=== PATIENT | female | born 1940 | race Caucasian/White ===

== ENCOUNTER 2018-08-14 14:29 | Emergency (ER) | payer MEDICARE, SELFPAY ==
[2018-08-14 14:30] VITALS: BP 183/79; PULSE 100; RESP 18; TEMP 36.3; O2SAT 98; BMI 24.4
--- NOTE | 2018-08-14 16:26 | RAD_ITS ---
STUDY: X-RAY - SACRUM/COCCYX REASON FOR EXAM: Female, 77 years old. Low back pain x1 month TECHNIQUE: 3 view(s) of the sacrum and coccyx were obtained. COMPARISON: None. FINDINGS: There is degenerative arthrosis of the bilateral sacroiliac joints. There is demineralization of the sacral ala. Normal sacrococcygeal junction with a normal angulation. Normal coccygeal segments. The presacral soft tissue structures are unremarkable. There is no demonstrated fracture. RAD/Sacrum-Coccyx min 2 Views IMPRESSION: No acute findings Electronically Signed: Jez Hernandez DO at 17:56 EDT Tel , Service support ,
--- NOTE | 2018-08-14 16:35 | ED.VIS.BACK ---
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 She states somewhere in between those 2 events she started having back discomfort, she does not know what exactly it started it, it was not sudden in onset, more gradual. It has been persistent. Worse with movement. She saw her chiropractor for separate times, he did some adjustments and thought that he fix the problem but she states it has not affected the pain which has been persistent. She denies any radiation into her lower extremities. No bowel or bladder dysfunction. No abdominal pain, no lightheadedness or syncope. The pain is mostly on the right, it is associated with movements, occasionally is on the left, or lumbar-sacral. No weakness or numbness anywhere including the groin. Also had urinary tract infection with urinary symptoms several weeks ago, she is finished antibiotics a couple days ago and still has some mild symptoms of urgency, but no dysuria or hematuria or fevers. - Past Medical History (1) DM type 2 (diabetes mellitus, type 2) Status: Chronic (2) HTN (hypertension) Status: Chronic Past Medical History - Allergies and Home Meds Allergies/Adverse Reactions: Allergies amoxicillin Adverse Reaction (Verified 08/14/18 14:32) YEAST INFECTION Primary Care Physician: Tahir Lau DO [Primary Care Provider] - Lives: Spouse/ Significant Other Smoking Status: Never smoker Review of Systems General: Denies: Chills, Fever, Sweats Eyes: Denies: Visual changes - bilaterally, Diplopia ENT: Denies: Rhinorrhea, Sore throat Cardiovascular: Denies: Chest pain, Palpitations Respiratory: Denies: Dyspnea, Cough, Dyspnea on exertion Gastrointestinal: Denies: Abdominal pain, Nausea, Vomiting, Diarrhea, Melena, Hematochezia Genitourinary: Reports: - - urgency. Denies: Dysuria, Hematuria, Frequency Musculoskeletal: Reports: Back pain. Denies: Extremity Pain Skin: Denies: Rash, Wounds Neurological: Denies: Headache, Weakness, Numbness Physical Exam Vital Signs/Narrative: Vital Signs Temp Pulse Resp BP Pulse Ox 08/14/18 14:30 97.4 F L 100 18 183/79 H 98 Inital Vital Signs reviewed: Yes General: Well nourished, Well developed Head: Normocephalic, Atraumatic Eyes: Perrl, EOMI ENT: Moist mucous membranes, No rhinorrhea Abdomen: Soft, Nontender, Nondistended, Normal bowel sounds Back: Normal Inspection, Paraspinal Tenderness - Right lumbosacral below pelvic brim, no tenderness left. Negative for: Spinal tenderness, CVA tenderness Extremeties: Nontender, No edema, - - Negative straight leg raises bilaterally while lying supine Skin: Normal color, No rash, No Trauma Neuro: Alert, Oriented, Normal Strength, Normal Sensation, Normal DTR, Normal Gait, Normal Reflexes Psychological: Normal affect, Normal Mood Diagnostic/Tx/Re-eval Impressions Sacrum and Coccyx X-Ray 08/14/18 16:26 IMPRESSION: No acute findings Electronically Signed: Jez Hernandez DO at 17:56 EDT Tel , Service support , Lumbar Spine X-Ray 08/14/18 16:55 IMPRESSION: Degenerative changes of the spine, as detailed above. Electronically Signed: Jez Hernandez DO at 17:56 EDT Tel , Service support , 08/14/18 16:26 Sacrum-Coccyx min 2 Views [RAD] Stat 08/14/18 16:55 Lumbar Spine 2 or 3 Views [RAD] Stat Laboratory Results 08/14/18 16:41 Urine Color Yellow Urine Clarity Sl. Cloudy Urine pH 6.0 Ur Specific [place] 1.015 Urine Protein 15 H Urine Glucose (UA) 1000 H Urine Ketones 5 H Urine Occult Blood 10 H Urine Nitrite Positive H Urine Bilirubin Negative Urine Urobilinogen Normal Ur Leukocyte Esterase 500 H Urine RBC 0-5 SEEN Urine WBC 25-50 SEEN Ur Squamous Epith Cells 0-5 SEEN Amorphous Sediment 1+ URATE Urine Bacteria 1+ Urine Mucus 0 SEEN - Medical Decision Making X-rays of the lumbar spine and sacrum are unremarkable except for some mild degenerative findings which is typical at this age. No acute abnormalities. Her urine shows significant signs of infection. She cannot remember which twice daily antibiotic she was recently on but knows it was not a sulfa medication and she is not allergic so I will prescribe that along with sending a culture for her to see her doctor for follow-up for. Offered prescription analgesics, she declines and states she is okay taking NSAIDs but really just wants a diagnosis. We discussed the possibility of muscle strain versus sacroiliitis. She is following up with orthopedics Dr. Romero and asked that I send a copy to his office, she is seeing him in about 2 weeks. ED Disposition - Plan for ED Patient: Disposition: Home or Assisted Living Diagnosis: Urinary tract infection, Acute lumbosacral myofascial strain Instructions: Back Sprain/Strain, Understanding Urinary Tract Infections (UTIs), Sacroiliitis Prescriptions: Smz/Tmp Ds [Bactrim Ds] 1 tab PO BID #14 tab Transmission Status: Pending to [id number] Referrals: Tahir Lau DO [Primary Care Provider] - 3-5 Days Maldonado Romero MD [STAFF PHYSICIAN] - Keep Emerita appointment
[2018-08-14 16:47] LABS: Mucous, Urine 0 SEEN /hpf (<or=2+)
[2018-08-14 16:49] LABS: Color, Urine Yellow (Yellow); Glucose, Dipstick 1000 mg/dl (Normal); Ketone-Dipstick 5 mg/dl (Negative); Leukocyte Esterase-Dipstick 500 /ul (Negative); Nitrite-Dipstick Positive (Negative); Occult Blood-Urine 10 /ul (Negative); Protein-Dipstick 15 mg/dl (Negative); Specific Gravity, Urine 1.015 (1.002-1.030); Urine Bilirubin Dipstick Negative (Negative); Urine Clarity Sl. Cloudy (Clear); Urine Urobilinogen Normal (Normal)
--- NOTE | 2018-08-14 16:55 | RAD_ITS ---
STUDY: X-RAY - LUMBAR SPINE REASON FOR EXAM: Female, 77 years old. Back pain TECHNIQUE: 3 view(s) of the lumbar spine were obtained. COMPARISON: None FINDINGS: Normal lumbar lordosis. There is no substantial scoliosis. Grade 1 anterolisthesis of L4 on L5 as well as L5 on S1. Chronic appearing pars defects. There is multilevel endplate spondylosis of the lumbar vertebrae. There is multi-level degenerative disc disease with multi-level disc space narrowing. There is no demonstrated fracture. There is atherosclerotic calcification of the abdominal aorta without a demonstrated aneurysm. RAD/Lumbar Spine 2 or 3 Views IMPRESSION: Degenerative changes of the spine, as detailed above. Electronically Signed: Jez Hernandez DO at 17:56 EDT Tel , Service support ,
[2018-08-14 16:56] LABS: Red Blood Cells-Urine 0-5 SEEN /hpf (0-5); Squamous Epithelial Cells - UA 0-5 SEEN /hpf (5-10); White Blood Cells 25-50 SEEN /hpf (0-5)
[2018-08-14 16:57] LABS: Amorphous Sediment 1+ URATE; Bacteria 1+ /hpf (None Seen)
[2018-08-14 18:29] VITALS: BP 167/71; PULSE 71; RESP 16; O2SAT 96
[2018-08-14 18:31] VITALS: BP 167/71; PULSE 71; RESP 18; O2SAT 96
== END 2018-08-14 18:31 | disposition home or self-care (01) ==
PROVIDERS: Emergency Provider Emergency Medicine; Family Provider Student in an Organized Health Care Education/Training Program; PCP Student in an Organized Health Care Education/Training Program
DX: N39.0 Urinary tract infection, site not specified (principal); S39.012A Strain of muscle, fascia and tendon of lower back, initial encounter; X58.XXXA Exposure to other specified factors, initial encounter; Y93.9 Activity, unspecified; Y92.9 Unspecified place or not applicable; E11.9 Type 2 diabetes mellitus without complications
CPT/HCPCS: 72100; 72220; 81001; 87077; 87086; 87088; 87186; 99282

== ENCOUNTER → 2022-10-08 | Outpatient (CLI) | payer MEDICARE, SELFPAY ==
--- NOTE | 2022-10-08 15:04 | US_ITS ---
INDICATION: UTI EXAMINATION: Ultrasound US Kidney(s) complete (eg, kidneys and bladder) TECHNIQUE: Little scale and color doppler images were obtained of the kidneys. COMPARISON: None. FINDINGS: RIGHT KIDNEY: 10.8 x 5.6 x 5.1 cm. [Mild increased cortical echogenicity. There is no hydronephrosis. Exophytic 2.1 cm anechoic simple cyst. No shadowing calculus, solid lesion or perinephric collection is demonstrated. LEFT KIDNEY: 10.3 x 4.7 x 5.7 cm. Lobulated renal cortex. Mild increased cortical echogenicity. There is no hydronephrosis. No shadowing calculus, focal lesion or perinephric collection is demonstrated. URINARY BLADDER: Anechoic bladder with prevoid volume 365 mL. No post void imaging obtained. Bilateral ureteral jets are demonstrated. No focal wall thickening is seen. . US/Kidney and Bladder IMPRESSION: Mildly increased bilateral renal cortical echogenicity and lobulated left renal cortex as can be seen with medical renal disease. No evidence of obstructive uropathy. Benign right renal cyst. Electronically Signed: Joaquin Ward MD at 9:43 EDT ,
== END | disposition home or self-care (01) ==
LOC: US 15:04
PROVIDERS: PCP Student in an Organized Health Care Education/Training Program; Referring Provider Urology; Visit Provider Urology
DX: N39.0 Urinary tract infection, site not specified (principal)
CPT/HCPCS: 76770

== ENCOUNTER 2023-02-27 08:42 | Emergency (ER) | payer MEDICARE, SELFPAY ==
[2023-02-27 08:44] VITALS: BP 164/109; PULSE 83; RESP 18; TEMP 36.1; O2SAT 95
[2023-02-27 09:00] VITALS: BP 180/81; PULSE 84; RESP 16; O2SAT 94
--- NOTE | 2023-02-27 09:10 | EDS_ITS ---
HPI History of Present Illness Chief Complaint: General Illness Detail of Chief Complaint: Sick x 1 week Informant: patient Narrative Narrative: Patient presents to the emergency department with complaint of illness that started 1 week ago. Patient states initially she started with a headache that lasted about 3 days and then resolved. She then developed a sore throat. She has had diarrhea for couple days. The diarrhea is improved and the headaches improved and the throat does not hurt any longer. She still has a mild cough. Her also has a sore throat. She denies any fevers or chills or sweats. PFSH PFSH Home Medications sulfamethoxazole 800 mg-trimethoprim 160 mg tablet 1 tab PO BID #14 tabs 08/14/18 [Rx Last Taken Unknown] Allergy/AdvReac Type Severity Reaction Status Date / Time amoxicillin AdvReac YEAST Verified 02/27/23 10:30 INFECTION Social History Smoking Status: Never smoker ROS ROS ED Review of Systems ROS Unobtainable: other Constitutional Constitutional ED: Reports lethargy; Denies chills, fever(s), sweats or weight loss Eyes Eyes: Denies blurry vision, change in vision or diplopia ENT ENT ED: Reports sore throat; Denies rhinorrhea Cardiovascular Cardiovascular: Denies chest pain, orthopnea or racing heartbeat Respiratory/Chest Respiratory/Chest: Reports cough; Denies dyspnea, dyspnea on exertion, orthopnea or sputum Gastrointestinal Gastrointestinal: Denies abdominal pain, diarrhea, nausea or vomiting Genitourinary Genitourinary ED: Denies dysuria, hematuria or urinary frequency Musculoskeletal Musculoskeletal: Denies arthralgias, back pain, myalgias or neck pain Integumentary Denies abscess, Abrasions or rash Neurologic Neurologic: Reports headache(s); Denies weakness Psychiatric Psychiatric: Denies anxiety, depression or suicidal thoughts Endocrine Endocrinology: Denies polydipsia, polyphagia or polyuria Hematologic/Lymphatic Hematologic/Lymphatic: Denies easy bleeding, easy bruising or lymphadenopathy Allergic/Immunologic Allergic/Immunologic ED: Denies mouth swelling, tongue swelling or urticaria EXAM Physical Exam Const Vital Signs: 02/27/23 08:44 02/27/23 09:00 02/27/23 10:31 Temperature 97 F L Temperature Source Temporal Pulse Rate 83 84 Respiratory Rate 18 16 Respiratory Effort Non-Labored Short of Breath Blood Pressure 164/109 H 180/81 H Blood Pressure Mean 127 114 Pulse Ox 95 94 Oxygen Delivery Method Room Air Positive well nourished and well developed General Appearance ED: well developed and NAD HEENT Reports TM's clear and moist mucous membranes normocephalic and atraumatic; Negative for trauma or tenderness Tympanic Membrane ED: Yes TM's clear Eyes PERRL and EOMs intact bilaterally General Eye ED: Negative for pale conjunctiva or scleral icterus Neck no lymphadenopathy, supple and no JVD General: Negative for tenderness Chest Wall inspection of chest normal and palpation of chest normal Chest: Negative for tenderness Resp normal respiratory effort and clear to auscultation bilaterally Effort and Inspection: Negative for respiratory distress or pain with movement Auscultation: Negative for rhonchi, wheezes or diminished lung sounds Cardio regular rate, regular rhythm, S1 normal heart sound, S2 normal heart sound and no murmurs Peripheral Pulses: pulses 2+ throughout GI normal to inspection, nondistended, normoactive bowel sounds, soft to palpation, non-tender, non-distended and no masses Back/Spine no CVA tenderness and no thoracic nor lumbar tenderness Extremity normal to inspection General Extremety ED: Negative for edema General Extremity: Negative for edema Neuro oriented x3, CN's II-XII intact bilaterally, no sensory deficits noted and gait normal Sensorium / Orientation: awake, alert, oriented to person, oriented to place and oriented to time Motor Exam: strength 5/5 throughout and strength abnormal Psych mental status grossly normal Skin no rashes or lesions noted and no wounds MDM MDM MDM Narrative Medical decision making narrative: Patient presents with URI symptoms for over a week. Clinically she looks well. No respiratory difficulty and O2 sats normal on room air. Lung exams unremarkable. Patient had testing for COVID and flu as well as RSV and did come back positive for COVID-19. Chest x-ray showed some increased markings in the bases which could be atelectasis versus pneumonia or scarring. Clinically she is not bringing up any phlegm and has had no fever and I do not feel she needs any antibiotics. She is to finish her nitrofurantoin that she takes for her urine. Her urinalysis was relatively unremarkable. I will send off a culture. Patient advised to return if increasing shortness of breath or condition should worsen anyway. Patient advised to follow-up with her primary care physician within next 3 to 5 days. Lab Data Attestation: I reviewed the patient's lab results. Labs: Laboratory Results - last 24 hr 02/27/23 09:49 Urine Color Yellow Urine Clarity Sl. Cloudy Urine pH 6.0 Ur Specific [place] 1.010 Urine Protein 30 H Urine Glucose (UA) 250 H Urine Ketones 15 H Urine Occult Blood 10 H Urine Nitrite Negative Urine Bilirubin Negative Urine Urobilinogen Normal Ur Leukocyte Esterase 100 H Urine RBC 0-5 SEEN Urine WBC 5-10 SEEN Ur Squamous Epith Cells 0-5 SEEN Urine Bacteria 1+ Urine Mucus 0 SEEN Radiography Diagnostic Testing: Clinical Impression(s) from Imaging Studies Chest X-Ray 02/27/23 09:20 IMPRESSION: Bibasilar pulmonary densities which may represent pneumonia, atelectasis and/or scarring. Electronically Signed: Edy Pickering MD at 9:58 EST , 1 view chest x-ray obtained interpreted by myself as mild increased markings both lower lobes which may be atelectasis versus infiltrate. Radiology was in agreement. Discharge Plan Triage Chief Complaint: General Illness ED Provider: Selene Cates Dx/Rx/DC Orders Clinical Impression: COVID-19 Instructions: Caring for Someone Who Has COVID-19 Prescriptions: No Action sulfamethoxazole-trimethoprim 1 TABLET tablet 1 tab PO BID Qty: 14 0RF Primary Care Provider: Tahir Lau Referrals: Tahir Lau DO [Primary Care Provider] - 3-5 Days Disposition Disposition: Home, Self Care Discharge Date/Time: 02/27/23 10:57
--- NOTE | 2023-02-27 09:20 | RAD_ITS ---
EXAM: XR CHEST, 1 VIEW CLINICAL INDICATION: cough TECHNIQUE: Frontal view of the chest. COMPARISON: No relevant prior studies available. FINDINGS: LUNGS AND PLEURAL SPACES: Bibasilar infiltrates/atelectasis or scarring noted. HEART: Normal heart size. MEDIASTINUM: No mediastinal or hilar mass. BONES/JOINTS: No acute abnormality. RAD/Chest 1 View (Portable) IMPRESSION: Bibasilar pulmonary densities which may represent pneumonia, atelectasis and/or scarring. Electronically Signed: Edy Pickering MD at 9:58 EST ,
[2023-02-27 09:53] LABS: Mucous, Urine 0 SEEN /hpf (<or=2+)
[2023-02-27 10:04] LABS: Color, Urine Yellow (Yellow); Glucose, Dipstick 250 mg/dl (Normal); Ketone-Dipstick 15 mg/dl (Negative); Leukocyte Esterase-Dipstick 100 /ul (Negative); Nitrite-Dipstick Negative (Negative); Occult Blood-Urine 10 /ul (Negative); Protein-Dipstick 30 mg/dl (Negative); Urine Bilirubin Dipstick Negative (Negative); Urine Clarity Sl. Cloudy (Clear); Urine Urobilinogen Normal (Normal)
[2023-02-27 10:11] LABS: Bacteria 1+ /hpf (None Seen); Squamous Epithelial Cells - UA 0-5 SEEN /hpf (5-10); White Blood Cells 5-10 SEEN /hpf (0-5)
[2023-02-27 10:12] LABS: Red Blood Cells-Urine 0-5 SEEN /hpf (0-5)
--- OUTSIDE RECORDS SUMMARY | 2023-02-27 10:23 | XMS RPT_ITS | CCD ---
Author Name Unknown Address [address] [place] [address] Organization [facility] Care Team Providers Care Substation Design Draftsperson Name Role Phone Tahir Vega Unavailable PHYSICIAN, NOT RECORDED Unavailable Unavaila FAWN Sanchez Unavailable Unavailable FAWN LEVINE Unavailable Unavailable FAWN LEVINE Unavailable Unavailable Reggie Son Unavailable Unavailable Reggie Son Unavailable Unavailable Elliot Morrison Primary Care Provider Tahir Vega Primary Care Provider Tahir Vega Primary Care Provider Tahir Vega DO Primary Care Provider Tahir Vega DO Primary Care Provider TAHIR VEGA Primary Care Unavailable FAWN GARZA Attending Unava ilable SLICK, ELICEO PAC Attending Unavailable SLICK, ELICEO PAC Primary Care Unavailable SLICK, ELICEO PAC Admitting Unavailable Tahir Vega DO Primary Care Provider TAHIR VEGA Primary Care Unavailable LUIS E MALLORY.GASTON Attending Unavailable LUIS E MALLORY., GASTON Referring Unavailable TAHIR VEGA Primary Care Unavailable LUIS E ., GASTON Attending Unavailable LUIS E JR., GASTON Referring Unavailable Tahir Vega DO Primary Care Provider Tahir Vega DO Primary Care Provider Tahir Vega DO Primary Care Provider Tahir Vega DO Primary Care Provider VEGATAHIR L Admitting Unavailable VEGA, TAHIR L Primary Care Unavailable VEGA, TAHIR L Primary Care Unavailable REGGIE SON Admitting Unavailab madeline WEINSTEINN JR., GASTON Attending Unavailable VEGA, TAHIR L Primary Care Unavailable LUIS E MALLORY., GASTON Attending Unavailable VEGA, TAHIR L Primary Care Unavailable VEGA, TAHIR L Primary Care Unavailable REGGIE SON Attending Unavailab le VEGA, TAHIR Heather Primary Care Unavailable KAELA HENNESSY Attending Unavailable VEGA, TAHIR Heather Primary Care Unavailable KAELA HENNESSY Attending Unavailable MALISSA GRAVES Attending Unavaila ble VEGA, TAHIR L Primary Care Unavailable VEGA, TAHIR L Primary Care Unavailable LUIS E JR., GASTON Attending Unavailable LUIS E JR., GASTON Attending Unavailable VEGA, TAHIR L Primary Care Unavailable REGGIE SON Attending Unavailab le VEGA, TAHIR L Primary Care Unavailable VEGA, TAHIR L Primary Care Unavailable DONNA MAX Attending Unavailable VEGA, TAHIR Heather Attending Unavailable VEGA, TAHIR L Primary Care Unavailable VEGA, TAHIR L Primary Care Unavailable KAUSHIK CORTEZ Attending Unavailable VEGA, TAHIR Heather Referring Unavailable VEGA, TAHIR L Primary Care Unavailable VEGA, TAHIR L Primary Care Unavailable DILCIA SALDAÑA Attending Unavailable VEGA, TAHIR L Primary Care Unavailable DONNA MAX Attending Unavailable VEGA, TAHIR L Primary Care Unavailable VEGA, TAHIR Heather Attending Unavailable DERECK BARNETT Attending Unavailable VEGA, TAHIR L Primary Care Unavailable DERECK BARNETT Attending Unavailable VEGA, TAHIR L Primary Care Unavailable Allergies Allergy Classification Reported Allergen(s) Allergy Type Date of Onset Reaction(s) Facility Penicillins (antibiotic) (2 sources) Penicillin G Drug Allergy 7 [facility] (20 sources) penicillin g; Translations: [PENICILLIN G] Propensity to adverse reactions to drug 7 [facility] Work Phone: (3 sources) NO KNOWN DRUG ALLERGIES Propensity to adverse reactions to drug 6 [facility] (20 sources) Amoxicillin; Translations: [AMOXICILLIN] Drug Allergy 1 [facility] Repository Medications Current Medications Medication Drug Class(es) Dates Sig (Normalized) Sig (Original) blood-glucose meter (True Metrix Air Glucose Meter) kit (2 sources) Start: 10-09-2022 blood-glucose meter (True Metrix Air Glucose Meter) kit USE DIRECTED 1 kit 0 10/09/2022 Active Blood-Glucose Meter Kit (3 sources) Start: 06-29-2014 blood-glucose meter kit use as directed. 06/29/2014 Active calcium citrate 1500 mg / cholecalciferol 200 unt oral tablet (19 sources) Vitamin D Start: 05-30-2010 take 2 tablets by mouth once daily calcium citrate-vitamin D (CITRACAL+D) 315-200 mg-unit per tablet take 2 Tablet by Oral route every day. 0 05/30/2010 Active Calcium Citrate-Vitamin D3 315 Mg-200 Unit Tablet (3 sources) Start: 05-30-2010 take 2 tablets by mouth once daily calcium citrate-vitamin D (CITRACAL+D) 315-200 mg-unit per tablet take 2 Tablet by Oral route every day. 05/30/2010 Active cefdinir 300 mg oral capsule (4 sources) Cephalosporin Antibacterial Start: 07-23-2022 End: 08-02-2022 take 1 capsule by mouth twice daily cefdinir (OMNICEF) 300 MG capsule take 1 capsule by mouth twice daily for 10 days 0 07/23/2022 Active Completed/Discontinued Medications Medication Drug Class(es) Dates Sig (Normalized) Sig (Original) alendronic acid 70 mg oral tablet (20 sources) Bisphosphonate Start: 11-15-2020 take 1 tablet by mouth every week alendronate (FOSAMAX) 70 mg tablet Indications: Age-related osteoporosis without current pathological fracture Take 1 tablet by mouth one time a week. Take with a full glass of water, on an empty stomach; do NOT lie down for 30minutes. 12 tablet 3 05/28/2022 Active Problems Active Problems Problem Classification Problem Date Documented Da te Episodic/Chronic Abdominal pain (1 source) Flank pain; Translations: [Unspecified abdominal pain] Episodic Diabetes mellitus with complications (20 sources) Neurological disorder with diabetes type 2; Translations: [Type 2 diabetes mellitus with other diabetic neurological complication] Onset: 06-18-2010 05-05-2015 Chronic Diabetes mellitus without complication (20 sources) Type 2 diabetes mellitus; Translations: [Type 2 diabetes mellitus without complication] Onset: 06-18-2010 05-05-2015 Chronic Diseases of mouth; excluding dental (1 source) Angular cheilitis; Translations: [Diseases of lips] 01-28-2023 Episodic Disorders of lipid metabolism (20 sources) Dyslipidemia; Translations: [Hyperlipidemia, unspecified] Onset: 04-24-2017 04-24-2017 Chronic Essential hypertension (20 sources) Essential hypertension; Translations: [Essential (primary) hypertension] Onset: 06-18-2010 05-05-2015 Chronic Genitourinary symptoms and ill-defined conditions (1 source) Urge incontinence of urine; Translations: [Urge incontinence] Chronic Heart valve disorders (20 sources) Non-rheumatic mitral regurgitation ; Translations: [Nonrheumatic mitral (valve) insufficiency] 07-25-2020 Chronic Nutritional deficiencies (20 sources) Vitamin D deficiency; Translations: [Vitamin D deficiency, unspecified] Onset: 12-06-2021 Chronic Nutritional deficiencies (1 source) Cobalamin deficiency; Translations: [Deficiency of other specified B group vitamins] 12-11-2022 Episodic Osteoarthritis (20 sources) Osteoarthritis of right foot; Translations: [Primary osteoarthritis, right ankle and foot] Onset: 04-28-2021 04-28-2021 Chronic Osteoporosis (20 sources) Senile osteoporosis; Translations: [Age-related osteoporosis without current pathological fracture] Onset: 06-07-2020 06-07-2020 Chronic Other and ill-defined heart disease (20 sources) Left ventricular hypertrophy; Translations: [Cardiomegaly] Onset: 06-07-2020 06-07-2020 Chronic Other non-traumatic joint disorders (20 sources) Arthropathy of multiple joints; Translations: [Arthropathy, unspecified] Onset: 12-06-2021 Chronic Peripheral and visceral atherosclerosis (8 sources) Peripheral vascular disease; Translations: [Peripheral vascular disease, unspecified] Onset: 08-29-2022 Chronic Prolapse of female genital organs (1 source) Cystocele; Translations: [Cystocele, unspecified] 08-28-2022 Chronic Sprains and strains (2 sources) Rupture of posterior tibial tendon; Translations: [Strain of other muscle(s) and tendon(s) of posterior muscle group at lower leg level, right leg, initial encounter] Episodic Past or Other Problems Problem Classification Problem Date Documented Da te Episodic/Chronic Genitourinary symptoms and ill-defined conditions (13 sources) Urgent desire to urinate; Translations: [Urgency of urination] Onset: 04-27-2022 Episodic Mycoses (8 sources) Onychomycosis; Translations: [Tinea unguium] Onset: 08-29-2022 Episodic Other bone disease and musculoskeletal deformities (1 source) Osteopenia Episodic Other connective tissue disease (20 sources) Pain in right foot; Translations: [Pain in right foot] Onset: 10-29-2017 10-29-2017 Episodic Other connective tissue disease (20 sources) Pain in right hand; Translations: [Pain in right hand] Onset: 04-28-2018 04-28-2018 Episodic Other screening for suspected conditions (not mental disorders or infectious disease) (4 sources) Patient encounter status; Translations: [Encounter for screening for nutritional disorder] Onset: 05-14-2022 Episodic Urinary tract infections (20 sources) Recurrent urinary tract infection; Translations: [Urinary tract infection, site not specified] Onset: 04-28-2018 04-28-2018 Episodic Results Test Name Value Interpretation Reference Range Facil it Vital Signs Date Time Vital Sign Value Performing Clinician Facility 01-28-2023 11:10-0500 Diastolic blood pressure 80 mm[Hg] Donna Max APRN.CNP Work Phone: [facility] 01-28-2023 11:10-0500 Heart rate 71 /min Donna Max APRN.CNP Work Phone: [facility] 01-28-2023 11:10-0500 Respiratory rate 16 /min Donna Max APRN.CNP Work Phone: [facility] 01-28-2023 11:10-0500 SaO2% (BldA) [Mass fraction] 98 % Donna Max APRN.CNP Work Phone: [facility] 01-28-2023 11:10-0500 Systolic blood pressure 170 mm[Hg] Donna Max APRN.CNP Work Phone: [facility] 12-11-2022 08:11-0400 Body temperature 98.49 [degF] Tahir Vega DO Work Phone: [facility] 12-11-2022 08:11-0400 Body weight 64.41 kg Tahir Vega DO Work Phone: [facility] 12-11-2022 08:11-0400 Diastolic blood pressure 80 mm[Hg] Tahir Vega DO Work Phone: [facility] 12-11-2022 08:11-0400 Heart rate 76 /min Tahir Vega DO Work Phone: [facility] 12-11-2022 08:11-0400 Respiratory rate 16 /min Tahir Vega DO Work Phone: [facility] 12-11-2022 08:11-0400 Systolic blood pressure 146 mm[Hg] Tahir Vega DO Work Phone: [facility] 11-23-2022 08:21-0400 Diastolic blood pressure 57 mm[Hg] Gaston Cantu Jr., DPM Work Phone: [facility] 11-23-2022 08:21-0400 Systolic blood pressure 155 mm[Hg] Gaston Cantu Jr., DPM Work Phone: [facility] 11-23-2022 08:16-0400 Body temperature 98.29 [degF] Gaston Cantu Jr., DPM Work Phone: [facility] 11-23-2022 08:16-0400 Heart rate 77 /min Gaston Cantu Jr., DPM Work Phone: [facility] 08-29-2022 08:04-0400 Body temperature 98.01 [degF] Gaston Cantu Jr., DPM Work Phone: [facility] 08-29-2022 08:04-0400 Diastolic blood pressure 69 mm[Hg] Gaston Cantu Jr., DPM Work Phone: [facility] 08-29-2022 08:04-0400 Heart rate 66 /min Gaston Cantu Jr., DPM Work Phone: [facility] 08-29-2022 08:04-0400 Systolic blood pressure 173 mm[Hg] Gaston Cantu Jr. DPDaxa Work Phone: [facility] 08-28-2022 11:03-0400 Body weight 63.96 kg Dereck Knoble SIGNAL MAINTAINER HELPER.CUSTOMER SOLUTIONS SUPERVISOR Work Phone: [facility] 08-28-2022 11:03-0400 Diastolic blood pressure 80 mm[Hg] Dereck Knoble SIGNAL MAINTAINER HELPER.CUSTOMER SOLUTIONS SUPERVISOR Work Phone: [facility] 08-28-2022 11:03-0400 Heart rate 76 /min Dereck Knoble SIGNAL MAINTAINER HELPER.CUSTOMER SOLUTIONS SUPERVISOR Work Phone: [facility] 08-28-2022 11:03-0400 Respiratory rate 16 /min Dereck Knoble SIGNAL MAINTAINER HELPER.CUSTOMER SOLUTIONS SUPERVISOR Work Phone: [facility] 08-28-2022 11:03-0400 Systolic blood pressure 122 mm[Hg] Dereck Knoble SIGNAL MAINTAINER HELPER.CUSTOMER SOLUTIONS SUPERVISOR Work Phone: [facility] 07-19-2022 09:45-0400 Body weight 65.32 kg Dereck Knoble SIGNAL MAINTAINER HELPER.CUSTOMER SOLUTIONS SUPERVISOR Work Phone: [facility] 07-19-2022 09:45-0400 Diastolic blood pressure 80 mm[Hg] Dereck Knoble SIGNAL MAINTAINER HELPER.CUSTOMER SOLUTIONS SUPERVISOR Work Phone: [facility] 07-19-2022 09:45-0400 Heart rate 84 /min Dereck Knoble SIGNAL MAINTAINER HELPER.CUSTOMER SOLUTIONS SUPERVISOR Work Phone: [facility] 07-19-2022 09:45-0400 Respiratory rate 16 /min Dereck Knoble SIGNAL MAINTAINER HELPER.CUSTOMER SOLUTIONS SUPERVISOR Work Phone: [facility] 07-19-2022 09:45-0400 Systolic blood pressure 150 mm[Hg] Dereck Knoble SIGNAL MAINTAINER HELPER.CUSTOMER SOLUTIONS SUPERVISOR Work Phone: [facility] 06-08-2022 08:09-0400 Diastolic blood pressure 63 mm[Hg] Reggie Son CUSTOMER SOLUTIONS SUPERVISOR Work Phone: [facility] 06-08-2022 08:09-0400 Heart rate 68 /min Reggie Son CUSTOMER SOLUTIONS SUPERVISOR Work Phone: [facility] 06-08-2022 08:09-0400 Systolic blood pressure 151 mm[Hg] Reggie Son CUSTOMER SOLUTIONS SUPERVISOR Work Phone: [facility] 06-08-2022 08:00-0400 Body mass index (BMI) [Ratio] 24.72 kg/m2 Reggie Son CUSTOMER SOLUTIONS SUPERVISOR Work Phone: [facility] 06-08-2022 08:00-0400 Body weight 65.32 kg Reggie Son CUSTOMER SOLUTIONS SUPERVISOR Work Phone: [facility] 06-06-2022 08:35-0400 Body temperature 97 [degF] Tahir Vega DO Work Phone: [facility] 06-06-2022 08:35-0400 Body weight 65.77 kg Tahir Vega DO Work Phone: [facility] 06-06-2022 08:35-0400 Diastolic blood pressure 80 mm[Hg] Tahir Vega DO Work Phone: [facility] 06-06-2022 08:35-0400 Heart rate 64 /min Tahir Vega DO Work Phone: [facility] 06-06-2022 08:35-0400 Respiratory rate 16 /min Tahir Vega DO Work Phone: [facility] 06-06-2022 08:35-0400 Systolic blood pressure 134 mm[Hg] Tahir Vega DO Work Phone: [facility] 05-30-2022 07:54-0400 Body temperature 99.9 [degF] Gaston Cantu Jr., DPM Work Phone: [facility] 05-30-2022 07:54-0400 Diastolic blood pressure 63 mm[Hg] Gaston Cantu Jr., DPM Work Phone: [facility] 05-30-2022 07:54-0400 Heart rate 69 /min Gaston Cantu Jr., DPM Work Phone: [facility] 05-30-2022 07:54-0400 Systolic blood pressure 181 mm[Hg] Gaston Cantu Jr., DPM Work Phone: [facility] 05-14-2022 10:42-0400 Body weight 65.68 kg Kaushik Dana SIGNAL MAINTAINER HELPER.CUSTOMER SOLUTIONS SUPERVISOR Work Phone: [facility] 05-14-2022 10:42-0400 Diastolic blood pressure 74 mm[Hg] Kaushik Dana SIGNAL MAINTAINER HELPER.CUSTOMER SOLUTIONS SUPERVISOR Work Phone: [facility] 05-14-2022 10:42-0400 Heart rate 77 /min Kaushik Dana SIGNAL MAINTAINER HELPER.CUSTOMER SOLUTIONS SUPERVISOR Work Phone: [facility] 05-14-2022 10:42-0400 Respiratory rate 16 /min Kaushik Dana SIGNAL MAINTAINER HELPER.CUSTOMER SOLUTIONS SUPERVISOR Work Phone: [facility] 05-14-2022 10:42-0400 SaO2% (BldA) [Mass fraction] 96 % Kaushik Dana SIGNAL MAINTAINER HELPER.CUSTOMER SOLUTIONS SUPERVISOR Work Phone: [facility] 05-14-2022 10:42-0400 Systolic blood pressure 156 mm[Hg] Kaushik Dana SIGNAL MAINTAINER HELPER.CUSTOMER SOLUTIONS SUPERVISOR Work Phone: [facility] 03-02-2022 08:36-0500 Diastolic blood pressure 81 mm[Hg] Gaston Cantu Jr., DPM Work Phone: [facility] 03-02-2022 08:36-0500 Heart rate 78 /min Gaston Cantu Jr., DPM Work Phone: [facility] 03-02-2022 08:36-0500 Systolic blood pressure 151 mm[Hg] Gaston Cantu Jr., DPM Work Phone: [facility] 03-02-2022 08:31-0500 Body temperature 99 [degF] Gaston Cantu Jr., DPM Work Phone: [facility] 12-06-2021 09:04-0400 Body temperature 98.01 [degF] Tahir Vega DO Work Phone: [facility] 12-06-2021 09:04-0400 Body weight 64.86 kg Tahir Vega DO Work Phone: [facility] 12-06-2021 09:04-0400 Diastolic blood pressure 72 mm[Hg] Tahir Vega DO Work Phone: [facility] 12-06-2021 09:04-0400 Heart rate 68 /min Tahir Vega DO Work Phone: [facility] 12-06-2021 09:04-0400 Respiratory rate 16 /min Tahir Vega DO Work Phone: [facility] 12-06-2021 09:04-0400 Systolic blood pressure 138 mm[Hg] Tahir Vega DO Work Phone: [facility] 09-08-2021 09:01-0400 Diastolic blood pressure 69 mm[Hg] Gaston Cantu Jr., DPM Work Phone: [facility] 09-08-2021 09:01-0400 Heart rate 69 /min Gaston Cantu Jr., DPM Work Phone: [facility] 09-08-2021 09:01-0400 Systolic blood pressure 152 mm[Hg] Gaston Cantu Jr., DPM Work Phone: [facility] 09-08-2021 08:54-0400 Body temperature 98.8 [degF] Gaston Cantu Jr., DPM Work Phone: [facility] 07-18-2021 09:46-0400 Body temperature 98.6 [degF] Caroline Preston SIGNAL MAINTAINER HELPER.CUSTOMER SOLUTIONS SUPERVISOR Work Phone: [facility] 07-18-2021 09:46-0400 Body weight 66.59 kg Caroline Preston SIGNAL MAINTAINER HELPER.CUSTOMER SOLUTIONS SUPERVISOR Work Phone: [facility] 07-18-2021 09:46-0400 Diastolic blood pressure 70 mm[Hg] Caroline Preston SIGNAL MAINTAINER HELPER.CUSTOMER SOLUTIONS SUPERVISOR Work Phone: [facility] 07-18-2021 09:46-0400 Heart rate 89 /min Caroline Preston SIGNAL MAINTAINER HELPER.CUSTOMER SOLUTIONS SUPERVISOR Work Phone: [facility] 07-18-2021 09:46-0400 Respiratory rate 18 /min Caroline Preston SIGNAL MAINTAINER HELPER.CUSTOMER SOLUTIONS SUPERVISOR Work Phone: [facility] 07-18-2021 09:46-0400 SaO2% (BldA) [Mass fraction] 98 % Caroline Preston SIGNAL MAINTAINER HELPER.CUSTOMER SOLUTIONS SUPERVISOR Work Phone: [facility] 07-18-2021 09:46-0400 Systolic blood pressure 146 mm[Hg] Caroline Preston SIGNAL MAINTAINER HELPER.CUSTOMER SOLUTIONS SUPERVISOR Work Phone: [facility] 06-09-2021 09:44-0400 Diastolic blood pressure 69 mm[Hg] Gaston Cantu Jr., DPM Work Phone: [facility] 06-09-2021 09:44-0400 Heart rate 78 /min Gaston Cantu Jr., DPM Work Phone: [facility] 06-09-2021 09:44-0400 Systolic blood pressure 156 mm[Hg] Gaston Cantu Jr., DPM Work Phone: [facility] 06-09-2021 09:33-0400 Body temperature 98.1 [degF] Gaston Cantu Jr., DPM Work Phone: [facility] 06-09-2021 08:22-0400 Diastolic blood pressure 75 mm[Hg] Reggie Son CUSTOMER SOLUTIONS SUPERVISOR Work Phone: [facility] 06-09-2021 08:22-0400 Heart rate 75 /min Reggie Son CUSTOMER SOLUTIONS SUPERVISOR Work Phone: [facility] 06-09-2021 08:22-0400 Systolic blood pressure 165 mm[Hg] Reggie Son CUSTOMER SOLUTIONS SUPERVISOR Work Phone: [facility] 06-09-2021 08:19-0400 Body mass index (BMI) [Ratio] 25.04 kg/m2 Reggie Son CUSTOMER SOLUTIONS SUPERVISOR Work Phone: [facility] 06-09-2021 08:19-0400 Body weight 66.18 kg Reggie Son CUSTOMER SOLUTIONS SUPERVISOR Work Phone: [facility] 01-31-2021 08:36-0500 Body temperature 97.81 [degF] [facility] 08:36-[facility]00 Diastolic blood pressure 68 mm[Hg[facility]-31-[facility]21 08:36-0500 Heart rate 87 /[facility] 01-31-2021 08:36-0500 Systolic blood pressure 143 mm[Hg] [facility] 06-06-2020 07:49-0400 Body height 162.5 cm Reggie Son CUSTOMER SOLUTIONS SUPERVISOR Work Phone: [facility] 06-06-2020 07:49-0400 Body mass index (BMI) [Ratio] 25.57 kg/m2 Reggie Son CUSTOMER SOLUTIONS SUPERVISOR Work Phone: [facility] 06-06-2020 07:49-0400 Body weight 67.5 kg Reggie Son CUSTOMER SOLUTIONS SUPERVISOR Work Phone: [facility] 06-06-2020 07:49-0400 Diastolic blood pressure 71 mm[Hg] Reggie Son CUSTOMER SOLUTIONS SUPERVISOR Work Phone: [facility] 06-06-2020 07:49-0400 Heart rate 71 /min Reggie Son CUSTOMER SOLUTIONS SUPERVISOR Work Phone: [facility] 06-06-2020 07:49-0400 Systolic blood pressure 189 mm[Hg] Reggie Son CUSTOMER SOLUTIONS SUPERVISOR Work Phone: [facility] 12-02-2018 08:50-0400 BMI (Body Mass Index) 24.89 kg/m2 Reggie Son [facility] 12-02-2018 08:50-0400 Body weight 65.69 kg Reggie Son [facility] 12-02-2018 08:50-0400 BP Diastolic 79 mm[Hg] Reggie Son [facility] 12-02-2018 08:50-0400 BP Systolic 168 mm[Hg] Reggiemateusz Son [facility] 12-02-2018 08:50-0400 Height 162.5 cm Reggie [facility] 12-02-2018 08:50-0400 Pulse (Heart Rate) 70 /min Reggiemateusz Son [facility] 05-29-2018 08:09-0400 BMI (Body Mass Index) 25.23 kg/m2 Reggie [facility] 05-29-2018 08:09-0400 Body weight 66.68 kg Reggie [facility] 05-29-2018 08:09-0400 Height 162.6 cm Reggie [facility] 11-22-2017 08:59-0400 BMI (Body Mass Index) 24.68 kg/m2 Kaela Hennessy [facility] 11-22-2017 08:59-0400 BP Diastolic 79 mm[Hg] Kaela Hennessy [facility] 11-22-2017 08:59-0400 BP Systolic 188 mm[Hg] Kaela Hennessy [facility] 11-22-2017 08:59-0400 Height 162.6 cm Kaela Hennessy [facility] 11-22-2017 08:59-0400 Pulse (Heart Rate) 69 /min Kaela Hennessy [facility] 11-22-2017 08:59-0400 Weight 65.23 kg Kaela Hennessy [facility] 05-14-2017 07:44-0400 BMI (Body Mass Index) 24.03 kg/m2 [facility] 05-14-2017 07:44-0400 BP Diastolic 94 mm[Hg] [facility] 05-14-2017 07:44-0400 BP Systolic 170 mm[Hg] [facility] 05-14-2017 07:44-0400 Height 162.6 cm [facility] 05-14-2017 07:44-0400 Pulse (Heart Rate) 96 /min [facility] 05-14-2017 07:44-0400 Weight 63.5 kg [facility] 11-13-2016 07:59-0400 BMI (Body Mass Index) 23.17 kg/m2 [facility] Work Phone: 11-13-2016 07:59-0400 Height 162.6 cm [facility] Work Phone: 11-13-2016 07:59-0400 [address] 61[address] [facility] Work Phone: Encounters Encounter Date Encounter Type Care Provider Facility Start: 02-13-2023 End: 02-13-2023 ambulatory TAHIR VEGA Facility:[facility] Start: 01-28-2023 End: 01-28-2023 ambulatory TAHIR VEGA Facility:[facility] Start: 01-28-2023 End: 01-28-2023 Office outpatient visit 25 minutes Donna Max SIGNAL MAINTAINER HELPER.CUSTOMER SOLUTIONS SUPERVISOR Work Phone: [facility] Procedures Date Procedure Procedure Detail Performing Clinician Start: 08-28-2022 Urnls dip stick/tabl et rgnt auto w/o microscopy Dereck Barnett SIGNAL MAINTAINER HELPER.CUSTOMER SOLUTIONS SUPERVISOR Work Phone: Start: 07-19-2022 Urnls dip stick/tabl et rgnt auto w/o microscopy Dereck Barnett SIGNAL MAINTAINER HELPER.CUSTOMER SOLUTIONS SUPERVISOR Work Phone: Start: 06-08-2022 3 comp foot exam completed Reggie Son CUSTOMER SOLUTIONS SUPERVISOR Work Phone: Start: 06-01-2022 Microalbumin [Mass/v olume] in Urine by Test strip Reggie Son CUSTOMER SOLUTIONS SUPERVISOR Work Phone: Start: 05-14-2022 Urnls dip stick/tabl et rgnt auto w/o microscopy Kaushik Cortez SIGNAL MAINTAINER HELPER.CUSTOMER SOLUTIONS SUPERVISOR Work Phone: Start: 12-08-2021 3 comp foot exam completed Gaston Cantu Jr., DPM Work Phone: Start: 11-30-2021 Microalbumin [Mass/v olume] in Urine by Test strip Gaston Cantu Jr., DPM Work Phone: Start: 07-18-2021 Urnls dip stick/tabl et rgnt auto w/o microscopy [facility] Start: 06-09-2021 3 comp foot exam completed Reggie Son CNP Work Phone: Start: 12-09-2020 3 comp foot exam completed Leona Silverio MA Start: 06-06-2020 3 comp foot exam completed Reggie Son CUSTOMER SOLUTIONS SUPERVISOR Work Phone: Start: 06-02-2020 Microalbumin [Mass/v olume] in Urine by Test strip Reggie Son CUSTOMER SOLUTIONS SUPERVISOR Work Phone: Start: 12-02-2018 3 comp foot exam completed Reggie Son Start: 11-25-2018 Microalbumin [Mass/v olume] in Urine by Test strip Reggiemateusz Son Start: 05-29-2018 3 comp foot exam completed Reggie Son Start: 11-06-2017 End: 11-06-2017 Assay of thyroid stimulating hormone tsh Reggie Son Work Phone: Start: 11-06-2017 End: 11-06-2017 Comprehensive metabolic 2000 panel - Serum or Plasma Reggie Son Work Phone: Start: 11-06-2017 End: 11-06-2017 Hemoglobin A1c/Hemoglobin.total in Blood Reggie Son Work Phone: Start: 11-06-2017 End: 11-06-2017 Thyroxine (T4) free [Mass/volume] in Serum or Plasma Reggie Son Work Phone: Start: 11-13-2016 3 comp foot exam completed [facility] Start: 11-07-2016 Microalbumin [Mass/v olume] in Urine by Test strip [facility] Plan of Treatment Date Care Activity Detail Author Start: 08-18-2023 Influenza vaccination Influenza Vacc ine (#1) [facility] Immunizations Immunization Date Immunization Notes Care Provider Blanca bonilla 04-28-2018 influenza virus vaccine, unspecified formulation Tahir Vega DO Work Phone: [facility] 11-07-2016 [facility] Work Phone: Payers Date Payer Category Payer Medicare xxxxxxxxx [id number] 2015 Medicare [id number] 2015 Medicare [id number] [id number] 2015 Medicare [id number] 1939 Unknown [id number] 2.16. [id number] 1939 Unknown [id number] 2.16.84 [id number] 1939 Unknown [id number] 2.16. [id number] 1939 Unknown [id number] 2.16. [id number] 1939 Unknown [id number] 2.16. [id number] 1939 Unknown [id number] 2.16. [id number] 1939 Unknown [id number] 2.16. [id number] 1939 Unknown [id number] 2.16. [id number] 1939 Unknown [id number] 2.16. [id number] 1939 Unknown [id number] 2.16. [id number] 1939 Unknown [id number] 2.16. [id number] 1939 Unknown [id number] 2.16. [id number] 1939 Unknown [id number] 2.16. [id number] 1939 Unknown [id number] 2.16. [id number] 1939 Unknown [id number] 2.16. [id number] Social History Date Type Detail Facility Start: 05-14-2017 End: 12-06-2021 Tobacco smoking status NHIS Never smoker [facility] Work Phone: Start: 1940 Sex Assigned At Not on file O [facility] Work Phone: Exposure to SARS-CoV -2 (event) Unable to assess [facility] Start: 06-06-2020 End: 12-06-2021 Tobacco use and exposure Never used [facility] Start: 05-30-2021 End: 06-08-2022 Exposure to SARS-CoV-2 (event) Not sure [facility] Start: 01-31-2021 End: 11-23-2022 Alcohol intake Lifetime non-drinker (finding) [facility] Start: 04-28-2021 End: 01-28-2023 Alcohol intake Current non-drinker of alcohol (finding) [facility] Start: 03-02-2022 End: 07-19-2022 History of Social function [facility] Work Phone: Start: 03-02-2022 End: 07-19-2022 Tobacco use panel [facility] Work Phone: Adult Depression Screening Assessment 0 [facility] Work Phone: Medical Equipment Procedure Code Equipment Code Equipment Origin al Text Equipment Identifier Dates [id number] Start: 07-04-2015 Clinical Notes 07-05-2015 to 02-13-2023 Patient Donna Montoya APRN.CNP - 01/28/2023 11:17 AM ESTPatient Tahir Cloud DO - 12/11/2022 8:44 AM Gaston Lala Jr., DPM - 11/23/2022 8:55 AM EDT Note Date & Type Note Facility 02-13-2023 Note HNO ID: [id number] Author: Dilcia Saldaña APRN.CNP Service: ? Author Type: Nurse Practitioner Type: Progress Notes Filed: 02/13/2023 10:53 AM Note Text: Chief Complaint Patient presents with: b/p check HPI Anahi Diallo is a 82 year old female who presents here today for Above Complaints. Nichole is an established patient of Dr. Sid DO. She is a new patient to me today. Concerns today... Was seen in office by QUAN Thompson on 01/28/23 d/t lip irritation and swelling. While in office was noted to have high BP. Was instructed to follow up with PCP team in 2 weeks to recheck. HTN -- She states compliant with current blood pressure medication(s): losartan 100 mg, amlodipine 10 mg daily, and metoprolol 100 mg daily. She does not check BP at home. Average home readings: 140s/70s . She denies chest pain, shortness of breath, palpitations, dizziness, leg edema, headaches, or vision changes. Last 14 Encounter BP Readings: Date: BP: 02/13/2023 140/60 01/28/2023 170/80 12/11/2022 146/80 08/28/2022 122/80 07/19/2022 150/80 06/27/2022 170/80 06/06/2022 134/80 05/14/2022 156/74 12/06/2021 138/72 07/18/2021 146/70 04/28/2021 138/68 08/08/2020 166/62 06/06/2020 150/72 03/22/2020 140/80 Lip irritation is improved. Back to baseline. Past medical history, appointments, medications, allergies reviewed. Previous Medical History PAST MEDICAL HISTORY Diagnosis Date Hallux valgus, acquired 11/07/2009 HTN (hypertension) Nonrheumatic mitral valve regurgitation echo wnl Type 2 diabetes mellitus with complication (HCC) 04/05/2017 Type II or unspecified type diabetes mellitus without mention of complication, not stated as uncontrolled Previous Surgical History PAST SURGICAL HISTORY Procedure Laterality Date LAPAROSCOPY SURG CHOLECYSTECTOMY Cholecystectomy, lap PAST SURGICAL HISTORY OF D + C PAST SURGICAL HISTORY OF Gallbladder duct stones Family History FAMILY HISTORY Problem Relation Age of Onset Breast Cancer Mother Coronary Artery Disease Father Diabetes Son Kidney Disease Son Patient Allergies ALLERGIES Allergen Reactions Amoxicillin Rash Current Medications Current Outpatient Medications on File Prior to Visit Medication Sig losartan (COZAAR) 100 mg tablet Take 1 tablet by mouth once daily. amLODIPine (NORVASC) 10 mg tablet Take 1 tablet by mouth once daily. metoprolol succinate ER (TOPROL XL) 100 mg Take 1 tablet by mouth once daily. Incontinence Pad, Liner, Disp pads 1 Each four times daily as needed. meloxicam (MOBIC) 15 mg tablet Take 1 tablet by mouth once daily. For joint pain, Take with food. alendronate (FOSAMAX) 70 mg tablet Take 1 tablet by mouth one time a week. Take with a full glass of water, on an empty stomach; do NOT lie down for 30minutes. phenazopyridine (PYRIDIUM) 200 mg tablet Take 1 tablet by mouth three times daily as needed. alendronate (FOSAMAX) 70 mg tablet Take 1 tablet by mouth one time a week. Take with a full glass of water, on an empty stomach; do NOT lie down for 30minutes. glimepiride (AMARYL) 1 mg tablet Take 2 tablets by mouth twice daily. TRUE METRIX GLUCOSE TEST STRIP test strip 1 Strip as directed. Test up to 4x daily. Chromium Picolinate 200 mcg tab Take 1 tablet by mouth once daily. Potassium 99 mg tab Take 1 tablet by mouth once daily. Takes occasionally CALCIUM CARBONATE/VITAMIN D2 (CALCIUM + VITAMIN D ORAL) Take by mouth once daily. MULTIVIT-MIN/IRON/FOLIC/LUTEIN (CENTRUM SILVER WOMEN ORAL) Take by mouth once daily. UBIDECARENONE (CO Q-10 ORAL) Take by mouth once daily. GLUCOSAMINE HCL/CHONDR BERNARD A NA (OSTEO BI-FLEX ORAL) Take by mouth once daily. No current facility-administered medications on file prior to visit. Social History Social History Tobacco Use Smoking status: Never Smokeless tobacco: Never Substance Use Topics Alcohol use: No Drug use: No REVIEW OF SYSTEMS: as above Reviewed relevant PMHx, PSHx, Social Hx, current medications and allergies. Review of Symptoms REVIEW OF SYSTEMS See HPI. EXAM: BP 140/60 (BP Site: Left Arm, BP Position: Sitting, BP Cuff Size: Regular Adult) Pulse 72 Resp 12 Wt 64.9 kg (143 lb) SpO2 97% BMI 24.93 kg/m? General Appearance: Well appearing, alert, in no acute distress, well-hydrated, well nourished.. Lungs: Lungs clear to auscultation. No wheezing, rhonchi, rales.. Heart: RRR without murmur, gallop, or rubs. No ectopy. Health Maintenance List Pneumococcal Vaccine: 65+(1 of 2 - PCV) Never done DTaP,Tdap,Td Vaccine(1 - Tdap) Never done Shingrix Vaccine(1 of 2) Never done RSV Vaccine(1 - 1-dose 60+ series) Never done Dilated Retinal Exam due on 11/06/2022 Diabetic Foot Exam due on 12/01/2022 Covid-19 Vaccine(1) due on 06/07/2023 Influenza Vaccine(1) due on 08/18/2023 Urine Albumin:Creatinine Ratio due on 06/02/2023 LDL Cholesterol due on 06/02/2023 HbA1C due on (more content not included)... [facility] 01-28-2023 Note HNO ID: [id number] Author: Donna Max APRN.CUSTOMER SOLUTIONS SUPERVISOR Service: ? Author Type: Nurse Practitioner Type: Progress Notes Filed: 01/28/2023 2:35 PM Note Text: This is a 82 year old female who presents today with: Patient presents with: Acute Visit: Lip swelling- started Saturday; tried contacting Dermatology but could not be seen until Mar HISTORY OF PRESENT ILLNESS: Anahi Diallo is a 82 year old female. Patient presents with: Acute Visit: Lip swelling- started Saturday; tried contacting Dermatology but could not be seen until Mar Pt presents today with complaint of lip irritation. Refers that it started with some cracking in the angles of the mouth. Had a lot of cranberry salad over . Started with some cracking in the corners of the mouth. Started using some OTC balms. Refers Saturday morning, her lips were more swollen and red. Refers that she tried lip balm and vaseline. This morning she used bacterial handsoap and it started bleeding. Tried calling her informatics specialist, but hadn't been seen since since 2020, so they couldn't get in until March. She had similar symptoms in the past (2020) and treated for angular chilitis. PAST MEDICAL HISTORY: PAST MEDICAL HISTORY Diagnosis Date Hallux valgus, acquired 11/07/2009 HTN (hypertension) Nonrheumatic mitral valve regurgitation echo wnl Type 2 diabetes mellitus with complication (HCC) 04/05/2017 Type II or unspecified type diabetes mellitus without mention of complication, not stated as uncontrolled PAST SURGICAL HISTORY Procedure Laterality Date LAPAROSCOPY SURG CHOLECYSTECTOMY Cholecystectomy, lap PAST SURGICAL HISTORY OF D + C PAST SURGICAL HISTORY OF Gallbladder duct stones ALLERGIES Amoxicillin MEDICATIONS Current Outpatient Medications Medication Sig losartan (COZAAR) 100 mg tablet Take 1 tablet by mouth once daily. amLODIPine (NORVASC) 10 mg tablet Take 1 tablet by mouth once daily. metoprolol succinate ER (TOPROL XL) 100 mg Take 1 tablet by mouth once daily. Incontinence Pad, Liner, Disp pads 1 Each four times daily as needed. meloxicam (MOBIC) 15 mg tablet Take 1 tablet by mouth once daily. For joint pain, Take with food. alendronate (FOSAMAX) 70 mg tablet Take 1 tablet by mouth one time a week. Take with a full glass of water, on an empty stomach; do NOT lie down for 30minutes. glimepiride (AMARYL) 1 mg tablet Take 2 tablets by mouth twice daily. TRUE METRIX GLUCOSE TEST STRIP test strip 1 Strip as directed. Test up to 4x daily. Chromium Picolinate 200 mcg tab Take 1 tablet by mouth once daily. Potassium 99 mg tab Take 1 tablet by mouth once daily. Takes occasionally CALCIUM CARBONATE/VITAMIN D2 (CALCIUM + VITAMIN D ORAL) Take by mouth once daily. MULTIVIT-MIN/IRON/FOLIC/LUTEIN (CENTRUM SILVER WOMEN ORAL) Take by mouth once daily. UBIDECARENONE (CO Q-10 ORAL) Take by mouth once daily. GLUCOSAMINE HCL/CHONDR BERNARD A NA (OSTEO BI-FLEX ORAL) Take by mouth once daily. alendronate (FOSAMAX) 70 mg tablet Take 1 tablet by mouth one time a week. Take with a full glass of water, on an empty stomach; do NOT lie down for 30minutes. phenazopyridine (PYRIDIUM) 200 mg tablet Take 1 tablet by mouth three times daily as needed. No current facility-administered medications for this visit. FAMILY HISTORY Problem Relation Age of Onset Breast Cancer Mother Coronary Artery Disease Father Diabetes Son Kidney Disease Son Social History Tobacco Use Smoking status: Never Smokeless tobacco: Never Substance Use Topics Alcohol use: No Drug use: No EXAM: BP 170/80 Pulse 71 Resp 16 SpO2 98% PHYSICAL EXAM: General Appearance: Well appearing, alert, in no acute distress, well-hydrated, well nourished.. Skin: Skin color, texture, turgor normal, no suspicious rashes or lesions. Bilateral upper and lower lip irritation and swelling extended past the vermilion border. Head: Normocephalic, no masses, lesions, tenderness or abnormalities. Eyes: Anicteric sclera. Extraocular movements are intact. Neurologic: Gait normal. ASSESSMENT/PLAN: 1. Angular cheilitis - ICD9: 528.5, ICD10: K13.0 (primary diagnosis) Start mycolog. Notify provider if no better/worsening. - NYSTATIN-TRIAMCINOLONE 100,000 UNIT/G-0.1 % TOPICAL CREAM 2. Hypertension, essential - ICD9: 401.9, ICD10: I10 - Uncontrolled Continues high on recheck. Pt reports increased stress today with trying to check in and went to wrong floor. She will check at home and call if still elevated. Recheck in the office in 1-2 weeks. Discussed treatment plan and patient voices understanding. Patient's questions answered appropriately. Medications and potential side effects were discussed and patient voices understanding. Return to the office as scheduled or as needed for worsening/no improvement. Donna Max APRN.EUSEBIO [facility] 01-28-2023 Instructions Donna Max APRN.CNP - 01/28/2023 11:33 AM EST Start the cream. Let me know if not covered by insurance. Recheck blood pressure when you get home. Recheck BP here in 2 weeks. documented in this encounter [facility] 01-28-2023 History of Present illness Narrative This is a 82 year old female who presents today with: Patient presents with: Acute Visit: Lip swelling- started Saturday morning; tried contacting Dermatology but could not be seen until Mar HISTORY OF PRESENT ILLNESS: Anahi Diallo is a 82 year old female. Patient presents with: Acute Visit: Lip swelling- started Saturday morning; tried contacting Dermatology but could not be seen until Mar Pt presents today with complaint of lip irritation. Refers that it started with some cracking in the angles of the mouth. Had a lot of cranberry salad over . Started with some cracking in the corners of the mouth. Started using some OTC balms. Refers Saturday morning, her lips were more swollen and red. Refers that she tried lip balm and vaseline. This morning she used bacterial handsoap and it started bleeding. Tried calling her informatics specialist, but hadn't been seen since since 2020, so they couldn't get in until March. She had similar symptoms in the past (2020) and treated for angular chilitis. PAST MEDICAL HISTORY: PAST MEDICAL HISTORY Diagnosis Date Hallux valgus, acquired 11/07/2009 HTN (hypertension) Nonrheumatic mitral valve regurgitation echo wnl Type 2 diabetes mellitus with complication (HCC) 04/05/2017 Type II or unspecified type diabetes mellitus without mention of complication, not stated as uncontrolled PAST SURGICAL HISTORY Procedure Laterality Date LAPAROSCOPY SURG CHOLECYSTECTOMY Cholecystectomy, lap PAST SURGICAL HISTORY OF D + C PAST SURGICAL HISTORY OF Gallbladder duct stones ALLERGIES Amoxicillin MEDICATIONS Current Outpatient Medications Medication Sig losartan (COZAAR) 100 mg tablet Take 1 tablet by mouth once daily. amLODIPine (NORVASC) 10 mg tablet Take 1 tablet by mouth once daily. metoprolol succinate ER (TOPROL XL) 100 mg Take 1 tablet by mouth once daily. Incontinence Pad, Liner, Disp pads 1 Each four times daily as needed. meloxicam (MOBIC) 15 mg tablet Take 1 tablet by mouth once daily. For joint pain, Take with food. alendronate (FOSAMAX) 70 mg tablet Take 1 tablet by mouth one time a week. Take with a full glass of water, on an empty stomach; do NOT lie down for 30minutes. glimepiride (AMARYL) 1 mg tablet Take 2 tablets by mouth twice daily. TRUE METRIX GLUCOSE TEST STRIP test strip 1 Strip as directed. Test up to 4x daily. Chromium Picolinate 200 mcg tab Take 1 tablet by mouth once daily. Potassium 99 mg tab Take 1 tablet by mouth once daily. Takes occasionally CALCIUM CARBONATE/VITAMIN D2 (CALCIUM + VITAMIN D ORAL) Take by mouth once daily. MULTIVIT-MIN/IRON/FOLIC/LUTEIN (CENTRUM SILVER WOMEN ORAL) Take by mouth once daily. UBIDECARENONE (CO Q-10 ORAL) Take by mouth once daily. GLUCOSAMINE HCL/CHONDR BERNARD A NA (OSTEO BI-FLEX ORAL) Take by mouth once daily. alendronate (FOSAMAX) 70 mg tablet Take 1 tablet by mouth one time a week. Take with a full glass of water, on an empty stomach; do NOT lie down for 30minutes. phenazopyridine (PYRIDIUM) 200 mg tablet Take 1 tablet by mouth three times daily as needed. No current facility-administered medications for this visit. FAMILY HISTORY Problem Relation Age of Onset Breast Cancer Mother Coronary Artery Disease Father Diabetes Son Kidney Disease Son Social History Tobacco Use Smoking status: Never Smokeless tobacco: Never Substance Use Topics Alcohol use: No Drug use: No EXAM: BP 170/80 Pulse 71 Resp 16 SpO2 98% PHYSICAL EXAM: General Appearance: Well appearing, alert, in no acute distress, well-hydrated, well nourished.. Skin: Skin color, texture, turgor normal, no suspicious rashes or lesions. Bilateral upper and lower lip irritation and swelling extended past the vermilion border. Head: Normocephalic, no masses, lesions, tenderness or abnormalities. Eyes: Anicteric sclera. Extraocular movements are intact. Neurologic: Gait normal. ASSESSMENT/PLAN: 1. Angular cheilitis - ICD9: 528.5, ICD10: K13.0 (primary diagnosis) Start mycolog. Notify provider if no better/worsening. - NYSTATIN-TRIAMCINOLONE 100,000 UNIT/G-0.1 % TOPICAL CREAM 2. Hypertension, essential - ICD9: 401.9, ICD10: I10 - Uncontrolled Continues high on recheck. Pt reports increased stress today with trying to check in and went to wrong floor. She will check at home and call if still elevated. Recheck in the office in 1-2 weeks. Discussed treatment plan and patient voices understanding. Patient's questions answered appropriately. Medications and potential side effects were discussed and patient voices understanding. Return to the office as scheduled or as needed for worsening/no improvement. Donna Max APRN.CUSTOMER SOLUTIONS SUPERVISOR documented in this encounter [facility] 12-11-2022 Note HNO ID: [id number] Author: Tahir Vega, DO Service: ? Author Type: Physician Type: Progress Notes Filed: 12/11/2022 12:48 PM Note Text: CC: Anahi Diallo is a 82 year old female who presents to the office for follow up HPI: Urinary recurrent infections, was referred to UROGYN, Dr. Iris Ruiz. Has been fitted with multiple different kinds of pessaries, is trying the 4th one. Other pessaries haven't fit well. Is going to have a follow up. She was also started on a low dose antibiotic for 90 day supply and then will start probiotic. CMP is stable with normal renal and liver function Does get some fatigue Low back pain, recently has been flared up. Thoracic spine and rib pain. Was seen by Chiropractor specialist. No red flag symptoms, no known injuries. DM2, currently a1c 6.7%. taking amaryl medication. Still seeing Dr. Hennessy Customer Management Specialist. Is testing glucose 3-4 times a day, insurance not covering 4th strip per day- using Slipstream over the counter meter for this. HTN, well controlled, taking medications as prescribed, no CP or dyspnea Overall feels she is doing well. Mood is stable. No concerns. PAST MEDICAL HISTORY Diagnosis Date Hallux valgus, acquired 11/07/2009 HTN (hypertension) Nonrheumatic mitral valve regurgitation echo wnl Type 2 diabetes mellitus with complication (HCC) 04/05/2017 Type II or unspecified type diabetes mellitus without mention of complication, not stated as uncontrolled PAST SURGICAL HISTORY Procedure Laterality Date LAPAROSCOPY SURG CHOLECYSTECTOMY Cholecystectomy, lap PAST SURGICAL HISTORY OF D + C PAST SURGICAL HISTORY OF Gallbladder duct stones Current Outpatient Medications Medication Sig amLODIPine (NORVASC) 10 mg tablet Take 1 tablet by mouth once daily. metoprolol succinate ER (TOPROL XL) 100 mg Take 1 tablet by mouth once daily. Incontinence Pad, Liner, Disp pads 1 Each four times daily as needed. meloxicam (MOBIC) 15 mg tablet Take 1 tablet by mouth once daily. For joint pain, Take with food. alendronate (FOSAMAX) 70 mg tablet Take 1 tablet by mouth one time a week. Take with a full glass of water, on an empty stomach; do NOT lie down for 30minutes. phenazopyridine (PYRIDIUM) 200 mg tablet Take 1 tablet by mouth three times daily as needed. alendronate (FOSAMAX) 70 mg tablet Take 1 tablet by mouth one time a week. Take with a full glass of water, on an empty stomach; do NOT lie down for 30minutes. glimepiride (AMARYL) 1 mg tablet Take 2 tablets by mouth twice daily. TRUE METRIX GLUCOSE TEST STRIP test strip 1 Strip as directed. Test up to 4x daily. Chromium Picolinate 200 mcg tab Take 1 tablet by mouth once daily. CALCIUM CARBONATE/VITAMIN D2 (CALCIUM + VITAMIN D ORAL) Take by mouth once daily. GLUCOSAMINE HCL/CHONDR BERNARD A NA (OSTEO BI-FLEX ORAL) Take by mouth once daily. losartan (COZAAR) 100 mg tablet Take 1 tablet by mouth once daily. Potassium 99 mg tab Take 1 tablet by mouth once daily. Takes occasionally MULTIVIT-MIN/IRON/FOLIC/LUTEIN (CENTRUM SILVER WOMEN ORAL) Take by mouth once daily. UBIDECARENONE (CO Q-10 ORAL) Take by mouth once daily. No current facility-administered medications for this visit. ALLERGIES Allergen Reactions Amoxicillin Rash Social History Tobacco Use Smoking status: Never Smokeless tobacco: Never Substance Use Topics Alcohol use: No Drug use: No ROS: See HPI PE: BP 146/80 Pulse 76 Temp (Src) 98.5 (Left Tympanic) Resp 16 Wt 142 lb (64.4kg) Gen: AANDO, NAD, non-toxic appearing, Pleasant, hard of hearing. cooperative HEENT: NT/AC, PERRLA, EOMs intact b/l, nares clear and patent b/l, pharynx without erythema, exudate or lesions. Uvula midline. MMM Neck: supple, No cervical LAD, no thyromegaly, no carotid bruits CV: RRR, normal S1 and S2, no murmurs, no gallops, no rubs, Pulses 2+ and symmetric in UE and LE b/l Lungs: normal respiratory effort, CTA b/l, no wheezing or rhonchi or rales Abd: soft, NT, ND, +BS, no hepatosplenomegaly MS: arthritis changes of hands and feet and spine Neuro: CN II-XII intact b/l No edema, normal peripheral pulses Skin: warm, dry, intact, No rashes or lesions on exposed skin. ASSESSMENT/PLAN: 1. Urinary frequency - ICD9: 788.41, ICD10: R35.0 (primary diagnosis) recurrent - Patient education for prevention given Follow up with UROGYN as scheduled. 2. Hypertension, essential - ICD9: 401.9, ICD10: I10 - Controlled - Continue current medications - Recommend home blood pressure monitoring, to bring results to next visit - Encouraged sodium restriction, DASH or Mediterranean diet - Recommend regular aerobic exercise - LOSARTAN 100 MG TABLET 3. Dyslipidemia - ICD9: 272.4, ICD10: E78.5 - Control undetermined, due for labs - Continue current medications - Counseled on healthy diet and regular exercise - LIPID PANEL BASIC 4. Type 2 diabetes mellitus without complication, without long- (more content not included)... [facility] 12-11-2022 Instructions Tahir Vega DO - 12/11/2022 8:57 AM EDT 2 Good (Two Good) yogurt documented in this encounter [facility] 12-11-2022 History of Present illness Narrative CC: Anahi Diallo is a 82 year old female who presents to the office for follow up HPI: Urinary recurrent infections, was referred to UROGYN, Dr. Iris Ruiz. Has been fitted with multiple different kinds of pessaries, is trying the 4th one. Other pessaries haven't fit well. Is going to have a follow up. She was also started on a low dose antibiotic for 90 day supply and then will start probiotic. CMP is stable with normal renal and liver function Does get some fatigue Low back pain, recently has been flared up. Thoracic spine and rib pain. Was seen by Chiropractor specialist. No red flag symptoms, no known injuries. DM2, currently a1c 6.7%. taking amaryl medication. Still seeing Dr. Hennessy Customer Management Specialist. Is testing glucose 3-4 times a day, insurance not covering 4th strip per day- using Slipstream over the counter meter for this. HTN, well controlled, taking medications as prescribed, no CP or dyspnea Overall feels she is doing well. Mood is stable. No concerns. PAST MEDICAL HISTORY Diagnosis Date Hallux valgus, acquired 11/07/2009 HTN (hypertension) Nonrheumatic mitral valve regurgitation echo wnl Type 2 diabetes mellitus with complication (HCC) 04/05/2017 Type II or unspecified type diabetes mellitus without mention of complication, not stated as uncontrolled PAST SURGICAL HISTORY Procedure Laterality Date LAPAROSCOPY SURG CHOLECYSTECTOMY Cholecystectomy, lap PAST SURGICAL HISTORY OF D + C PAST SURGICAL HISTORY OF Gallbladder duct stones Current Outpatient Medications Medication Sig amLODIPine (NORVASC) 10 mg tablet Take 1 tablet by mouth once daily. metoprolol succinate ER (TOPROL XL) 100 mg Take 1 tablet by mouth once daily. Incontinence Pad, Liner, Disp pads 1 Each four times daily as needed. meloxicam (MOBIC) 15 mg tablet Take 1 tablet by mouth once daily. For joint pain, Take with food. alendronate (FOSAMAX) 70 mg tablet Take 1 tablet by mouth one time a week. Take with a full glass of water, on an empty stomach; do NOT lie down for 30minutes. phenazopyridine (PYRIDIUM) 200 mg tablet Take 1 tablet by mouth three times daily as needed. alendronate (FOSAMAX) 70 mg tablet Take 1 tablet by mouth one time a week. Take with a full glass of water, on an empty stomach; do NOT lie down for 30minutes. glimepiride (AMARYL) 1 mg tablet Take 2 tablets by mouth twice daily. TRUE METRIX GLUCOSE TEST STRIP test strip 1 Strip as directed. Test up to 4x daily. Chromium Picolinate 200 mcg tab Take 1 tablet by mouth once daily. CALCIUM CARBONATE/VITAMIN D2 (CALCIUM + VITAMIN D ORAL) Take by mouth once daily. GLUCOSAMINE HCL/CHONDR BERNARD A NA (OSTEO BI-FLEX ORAL) Take by mouth once daily. losartan (COZAAR) 100 mg tablet Take 1 tablet by mouth once daily. Potassium 99 mg tab Take 1 tablet by mouth once daily. Takes occasionally MULTIVIT-MIN/IRON/FOLIC/LUTEIN (CENTRUM SILVER WOMEN ORAL) Take by mouth once daily. UBIDECARENONE (CO Q-10 ORAL) Take by mouth once daily. No current facility-administered medications for this visit. ALLERGIES Allergen Reactions Amoxicillin Rash Social History Tobacco Use Smoking status: Never Smokeless tobacco: Never Substance Use Topics Alcohol use: No Drug use: No ROS: See HPI PE: BP 146/80 Pulse 76 Temp (Src) 98.5 (Left Tympanic) Resp 16 Wt 142 lb (64.4kg) Gen: A&O, NAD, non-toxic appearing, Pleasant, hard of hearing. cooperative HEENT: NT/AC, PERRLA, EOMs intact b/l, nares clear and patent b/l, pharynx without erythema, exudate or lesions. Uvula midline. MMM Neck: supple, No cervical LAD, no thyromegaly, no carotid bruits CV: RRR, normal S1 and S2, no murmurs, no gallops, no rubs, Pulses 2+ and symmetric in UE and LE b/l Lungs: normal respiratory effort, CTA b/l, no wheezing or rhonchi or rales Abd: soft, NT, ND, +BS, no hepatosplenomegaly MS: arthritis changes of hands and feet and spine Neuro: CN II-XII intact b/l No edema, normal peripheral pulses Skin: warm, dry, intact, No rashes or lesions on exposed skin. ASSESSMENT/PLAN: 1. Urinary frequency - ICD9: 788.41, ICD10: R35.0 (primary diagnosis) recurrent - Patient education for prevention given Follow up with UROGYN as scheduled. 2. Hypertension, essential - ICD9: 401.9, ICD10: I10 - Controlled - Continue current medications - Recommend home blood pressure monitoring, to bring results to next visit - Encouraged sodium restriction, DASH or Mediterranean diet - Recommend regular aerobic exercise - LOSARTAN 100 MG TABLET 3. Dyslipidemia - ICD9: 272.4, ICD10: E78.5 - Control undetermined, due for labs - Continue current medications - Counseled on healthy diet and regular exercise - LIPID PANEL BASIC 4. Type 2 diabetes mellitus without complication, without long-term current use of insulin (HCC) - ICD9: 250.00, ICD10: E11.9 - Controlled - Continue current medications F/u with Customer Management Specialist as scheduled - ALBUMIN/CREAT RATIO RND UR - HGB A1C 5. Age-related osteoporosis without current pathological fracture - ICD9: 733.01, ICD10: M81.0 - Reviewed the need for Calcium and Vitamin D supplements and weight bearing exercise as tolerated - MAGNESIUM BLD - COMP METABOLIC PANEL - CBC - VITAMIN D 25 HYDROXY - VITAMIN B12 BLOOD - TSH BLD - T4 FREE/FREE THYROX 6. Arthritis, multiple joint involvement - ICD9: 716.99, ICD10: M12.9 Stable, chronic, follow up with specialist prn 7. Vitamin D deficiency - ICD9: 268.9, ICD10: E55.9 - continue supplement - VITAMIN D 25 HYDROXY 8. Vitamin B12 deficiency - ICD9: 266.2, ICD10: E53.8 Continue supplement - VITAMIN B12 BLOOD Tahir Vega DO Return if no improvement. Follow up with Tahir Vega DO. To ER if develops chest pain, shortness of breath Discussed risks, benefits, alternatives, and potential side effects of medications. Patient/Guardian expressed understanding and agreed with the plan. See patient instructions. Tahir Vega DO [address] [place] [address] documented in this encounter [facility] 11-23-2022 History of Present illness Narrative Nail care Patient is a pleasant 82-year-old diabetic female who comes in to have her nails cut. States that they are very elongated thickened and cut. She has her diabetes managed by endocrinology. Additionally today states that she does need a new set of diabetic shoes and inserts as her last are very old. Does have complaints of tingling and burning distally with numbness. Physical Vascular pedal pulses palpable 2 out of 4, PT pulses are nonpalpable bilaterally. CFT is delayed with the foot and ankle edema. Derm: Skin is shiny dystrophic and avascular. Skin is warm to cool proximal to distal. Nails left 1 through 5 and right foot [id number] elongated thickened dystrophic crumbling Musculoskeletal: Muscle strength is 5/5 for tone. Can easily wiggle toes and clicking catching. Full subtalar is full. Neuro: Light touch is blunted distally Babinski's is blunted. 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 Patient is at high risk nail care, therefore qualifies for nail care. Sharply debrided and debulked in height and length 10 onychodystrophy chart. Nail nippers consistent with a q8 modifier. Low medical complexity decision making based on his shoe prescription and chronic neuropathy different and separate than her nail care. F/u in 3 months for nail care. documented in this encounter [facility] 08-31-2022 Miscellaneous Notes Patient notified and verbalized understanding Eva Paul Cma Please let patient know her urine culture shows cipro should be effective at curing infection. Patient calls and is asking about urine culture results. Patient reports that she is not as weak as what she was before and her urine is more clear. Component Latest Ref Rng & Units 08/28/2022 Culture >=100,000 CFU/ml Morganella morganii ssp morganii (A) Susceptibility Antibiotic Interpretation Method Status Ampicillin Resistant MINIMUM INHIBITORY CONCENTRATION(VITEK) Final Cefazolin Resistant MINIMUM INHIBITORY CONCENTRATION(VITEK) Final Ceftriaxone Susceptible MINIMUM INHIBITORY CONCENTRATION(VITEK) Final Cefepime Susceptible MINIMUM INHIBITORY CONCENTRATION(VITEK) Final Ertapenem Susceptible MINIMUM INHIBITORY CONCENTRATION(VITEK) Final Meropenem Susceptible MINIMUM INHIBITORY CONCENTRATION(VITEK) Final Piperacillin/Tazobac Susceptible MINIMUM INHIBITORY CONCENTRATION(VITEK) Final Gentamicin Susceptible MINIMUM INHIBITORY CONCENTRATION(VITEK) Final Tobramycin Susceptible MINIMUM INHIBITORY CONCENTRATION(VITEK) Final Trimeth sulfameth Susceptible MINIMUM INHIBITORY CONCENTRATION(VITEK) Final Ciprofloxacin Susceptible MINIMUM INHIBITORY CONCENTRATION(VITEK) Final Nitrofurantoin Resistant MINIMUM INHIBITORY CONCENTRATION(VITEK) Final documented in this encounter [facility] 08-30-2022 Miscellaneous Notes Patient calling and requesting last 2 OV notes from Dereck Barnett CUSTOMER SOLUTIONS SUPERVISOR be faxed to Dr. Ruiz's office at [facility]. Faxed as requested. Mitzi Shelton RN documented in this encounter [facility] 08-29-2022 History of Present illness Narrative Nail care Patient is a pleasant 81-year-old diabetic female who comes in to have her nails cut. States that they are very elongated thickened and cut. She has her diabetes managed by endocrinology. Additionally today states that she does need a new set of diabetic shoes and inserts as her last are very old. Does have complaints of tingling and burning distally with numbness. Physical Vascular pedal pulses palpable 2 out of 4, PT pulses are nonpalpable bilaterally. CFT is delayed with the foot and ankle edema. Derm: Skin is shiny dystrophic and avascular. Skin is warm to cool proximal to distal. Nails left 1 through 5 and right foot [id number] elongated thickened dystrophic crumbling Musculoskeletal: Muscle strength is 5/5 for tone. Can easily wiggle toes and clicking catching. Full subtalar is full. Neuro: Light touch is blunted distally Babinski's is blunted. 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 Patient is at high risk nail care, therefore qualifies for nail care. Sharply debrided and debulked in height and length 10 onychodystrophy chart. Nail nippers consistent with a q8 modifier. Low medical complexity decision making based on his shoe prescription and chronic neuropathy different and separate than her nail care. F/u in 3 months for nail care. documented in this encounter [facility] 08-28-2022 Note HNO ID: [id number] Author: Dereck Barnett APRN.C[employer] SUPERVISOR Service: ? Author Type: Nurse Practitioner Type: Progress Notes Filed: 08/28/2022 11:23 AM Note Text: Chief Complaint Patient presents with: UTI HPI Anahi Diallo is a 81 year old female who presents here today for Above Complaints.. Patient here with urinary complaints. Patient has been treated for UTI's 4 times in the last 4 months. Patient has failed treatment with keflex and omnicef in the last month and urine culture was positive for morganella 07/19/2022 which was resistant to macrobid. Past medical history, appointments, medications, allergies reviewed. Previous Medical History PAST MEDICAL HISTORY Diagnosis Date Hallux valgus, acquired 11/07/2009 HTN (hypertension) Nonrheumatic mitral valve regurgitation echo wnl Type 2 diabetes mellitus with complication (HCC) 04/05/2017 Type II or unspecified type diabetes mellitus without mention of complication, not stated as uncontrolled Previous Surgical History PAST SURGICAL HISTORY Procedure Laterality Date LAPAROSCOPY SURG CHOLECYSTECTOMY Cholecystectomy, lap PAST SURGICAL HISTORY OF D + C PAST SURGICAL HISTORY OF Gallbladder duct stones Family History FAMILY HISTORY Problem Relation Age of Onset Breast Cancer Mother Coronary Artery Disease Father Diabetes Son Kidney Disease Son Patient Allergies ALLERGIES Allergen Reactions Amoxicillin Rash Current Medications Current Outpatient Medications on File Prior to Visit Medication Sig Incontinence Pad, Liner, Disp pads 1 Each four times daily as needed. losartan (COZAAR) 100 mg tablet Take 1 tablet by mouth once daily. meloxicam (MOBIC) 15 mg tablet Take 1 tablet by mouth once daily. For joint pain, Take with food. alendronate (FOSAMAX) 70 mg tablet Take 1 tablet by mouth one time a week. Take with a full glass of water, on an empty stomach; do NOT lie down for 30minutes. metoprolol succinate ER (TOPROL XL) 100 mg Take 1 tablet by mouth once daily. amLODIPine (NORVASC) 10 mg tablet Take 1 tablet by mouth once daily. phenazopyridine (PYRIDIUM) 200 mg tablet Take 1 tablet by mouth three times daily as needed. alendronate (FOSAMAX) 70 mg tablet Take 1 tablet by mouth one time a week. Take with a full glass of water, on an empty stomach; do NOT lie down for 30minutes. glimepiride (AMARYL) 1 mg tablet Take 2 tablets by mouth twice daily. TRUE METRIX GLUCOSE TEST STRIP test strip 1 Strip as directed. Test up to 4x daily. Chromium Picolinate 200 mcg tab Take 1 tablet by mouth once daily. Potassium 99 mg tab Take 1 tablet by mouth once daily. Takes occasionally CALCIUM CARBONATE/VITAMIN D2 (CALCIUM + VITAMIN D ORAL) Take by mouth once daily. MULTIVIT-MIN/IRON/FOLIC/LUTEIN (CENTRUM SILVER WOMEN ORAL) Take by mouth once daily. UBIDECARENONE (CO Q-10 ORAL) Take by mouth once daily. GLUCOSAMINE HCL/CHONDR BERNARD A NA (OSTEO BI-FLEX ORAL) Take by mouth once daily. No current facility-administered medications on file prior to visit. Social History Social History Tobacco Use Smoking status: Never Smokeless tobacco: Never Substance Use Topics Alcohol use: No Drug use: No Review of Symptoms REVIEW OF SYSTEMS SEE HPI EXAM: BP 122/80 Pulse 76 Resp 16 Wt 64 kg (141 lb) BMI 24.59 kg/m? General Appearance: Well appearing, alert, in no acute distress, well-hydrated, well nourished.. Health Maintenance List PNEUMOCOCCAL: 65+(1 - PCV) Never done DTAP,TDAP,TD(1 - Tdap) Never done SHINGRIX VACCINE(1 of 2) Never done LDL CHOLESTEROL due on 12/02/2020 URINE ALBUMIN:CREATININE RATIO due on 03/18/2022 COVID-19 VACCINE(1) due on 06/07/2023 INFLUENZA(1) due on 10/19/2022 DILATED RETINAL EXAM due on 11/06/2022 DIABETIC FOOT EXAM due on 12/01/2022 HBA1C due on 12/01/2022 BONE DENSITY Completed DEPRESSION ASSESSMENT Completed FECAL OCCULT BLOOD Discontinued ADVANCE DIRECTIVE DISCUSSION Discontinued ASSESSMENT/PLAN: 1. Urinary frequency - ICD9: 788.41, ICD10: R35.0 (primary diagnosis) acute - UA positive for alize esterase, hematuria, and nitrates - Send urine for culture - Begin treatment with Ciprofloxacin 500 mg BID for 7 days - Patient education for prevention given - UA DIP, URINE (POC) - URINE CULTURE 2. Recurrent UTI (urinary tract infection) - ICD9: 599.0, ICD10: N39.0 acute - UA positive for alize esterase, hematuria, and nitrates - Send urine for culture - Begin treatment with Ciprofloxacin 500 mg BID for 7 days - Patient education for prevention given - UA DIP, URINE (POC) - URINE CULTURE - CIPROFLOXACIN 500 MG TABLET Dereck Barnett APRN.[facility] 08-28-2022 History of Present illness Narrative Chief Complaint Patient presents with: UTI HPI Anahi Diallo is a 81 year old female who presents here today for Above Complaints.. Patient here with urinary complaints. Patient has been treated for UTI's 4 times in the last 4 months. Patient has failed treatment with keflex and omnicef in the last month and urine culture was positive for morganella 07/19/2022 which was resistant to macrobid. Past medical history, appointments, medications, allergies reviewed. Previous Medical History PAST MEDICAL HISTORY Diagnosis Date Hallux valgus, acquired 11/07/2009 HTN (hypertension) Nonrheumatic mitral valve regurgitation echo wnl Type 2 diabetes mellitus with complication (HCC) 04/05/2017 Type II or unspecified type diabetes mellitus without mention of complication, not stated as uncontrolled Previous Surgical History PAST SURGICAL HISTORY Procedure Laterality Date LAPAROSCOPY SURG CHOLECYSTECTOMY Cholecystectomy, lap PAST SURGICAL HISTORY OF D + C PAST SURGICAL HISTORY OF Gallbladder duct stones Family History FAMILY HISTORY Problem Relation Age of Onset Breast Cancer Mother Coronary Artery Disease Father Diabetes Son Kidney Disease Son Patient Allergies ALLERGIES Allergen Reactions Amoxicillin Rash Current Medications Current Outpatient Medications on File Prior to Visit Medication Sig Incontinence Pad, Liner, Disp pads 1 Each four times daily as needed. losartan (COZAAR) 100 mg tablet Take 1 tablet by mouth once daily. meloxicam (MOBIC) 15 mg tablet Take 1 tablet by mouth once daily. For joint pain, Take with food. alendronate (FOSAMAX) 70 mg tablet Take 1 tablet by mouth one time a week. Take with a full glass of water, on an empty stomach; do NOT lie down for 30minutes. metoprolol succinate ER (TOPROL XL) 100 mg Take 1 tablet by mouth once daily. amLODIPine (NORVASC) 10 mg tablet Take 1 tablet by mouth once daily. phenazopyridine (PYRIDIUM) 200 mg tablet Take 1 tablet by mouth three times daily as needed. alendronate (FOSAMAX) 70 mg tablet Take 1 tablet by mouth one time a week. Take with a full glass of water, on an empty stomach; do NOT lie down for 30minutes. glimepiride (AMARYL) 1 mg tablet Take 2 tablets by mouth twice daily. TRUE METRIX GLUCOSE TEST STRIP test strip 1 Strip as directed. Test up to 4x daily. Chromium Picolinate 200 mcg tab Take 1 tablet by mouth once daily. Potassium 99 mg tab Take 1 tablet by mouth once daily. Takes occasionally CALCIUM CARBONATE/VITAMIN D2 (CALCIUM + VITAMIN D ORAL) Take by mouth once daily. MULTIVIT-MIN/IRON/FOLIC/LUTEIN (CENTRUM SILVER WOMEN ORAL) Take by mouth once daily. UBIDECARENONE (CO Q-10 ORAL) Take by mouth once daily. GLUCOSAMINE HCL/CHONDR BERNARD A NA (OSTEO BI-FLEX ORAL) Take by mouth once daily. No current facility-administered medications on file prior to visit. Social History Social History Tobacco Use Smoking status: Never Smokeless tobacco: Never Substance Use Topics Alcohol use: No Drug use: No Review of Symptoms REVIEW OF SYSTEMS SEE HPI EXAM: BP 122/80 Pulse 76 Resp 16 Wt 64 kg (141 lb) BMI 24.59 kg/m General Appearance: Well appearing, alert, in no acute distress, well-hydrated, well nourished.. Health Maintenance List PNEUMOCOCCAL: 65+(1 - PCV) Never done DTAP,TDAP,TD(1 - Tdap) Never done SHINGRIX VACCINE(1 of 2) Never done LDL CHOLESTEROL due on 12/02/2020 URINE ALBUMIN:CREATININE RATIO due on 03/18/2022 COVID-19 VACCINE(1) due on 06/07/2023 INFLUENZA(1) due on 10/19/2022 DILATED RETINAL EXAM due on 11/06/2022 DIABETIC FOOT EXAM due on 12/01/2022 HBA1C due on 12/01/2022 BONE DENSITY Completed DEPRESSION ASSESSMENT Completed FECAL OCCULT BLOOD Discontinued ADVANCE DIRECTIVE DISCUSSION Discontinued ASSESSMENT/PLAN: 1. Urinary frequency - ICD9: 788.41, ICD10: R35.0 (primary diagnosis) acute - UA positive for alize esterase, hematuria, and nitrates - Send urine for culture - Begin treatment with Ciprofloxacin 500 mg BID for 7 days - Patient education for prevention given - UA DIP, URINE (POC) - URINE CULTURE 2. Recurrent UTI (urinary tract infection) - ICD9: 599.0, ICD10: N39.0 acute - UA positive for alize esterase, hematuria, and nitrates - Send urine for culture - Begin treatment with Ciprofloxacin 500 mg BID for 7 days - Patient education for prevention given - UA DIP, URINE (POC) - URINE CULTURE - CIPROFLOXACIN 500 MG TABLET Dereck Barnett APRN.CUSTOMER [employer]UTIONS SUPERVISOR documented in this encounter [facility] 07-23-2022 Miscellaneous Notes Patient calls and notified of results and providers instructions. Patient verbalizes understanding. Arlene Chow RN Please let patient know her Urine culture is positive. I have sent in antibiotics. Patient should complete entire course. documented in this encounter [facility] 07-19-2022 Note HNO ID: [id number] Author: Dereck Barentt APRN.[employer] Service: ? Author Type: Nurse Practitioner Type: Progress Notes Filed: 07/19/2022 10:08 AM Note Text: Chief Complaint Patient presents with: UTI HPI Anhai Diallo is a 81 year old female who presents here today for Above Complaints.. Patient presents for urinary frequency. Patient has been treated twice in the past 3 months for UTI. Past medical history, appointments, medications, allergies reviewed. Previous Medical History PAST MEDICAL HISTORY Diagnosis Date Hallux valgus, acquired 11/07/2009 HTN (hypertension) Nonrheumatic mitral valve regurgitation echo wnl Type 2 diabetes mellitus with complication (HCC) 04/05/2017 Type II or unspecified type diabetes mellitus without mention of complication, not stated as uncontrolled Previous Surgical History PAST SURGICAL HISTORY Procedure Laterality Date LAPAROSCOPY SURG CHOLECYSTECTOMY Cholecystectomy, lap PAST SURGICAL HISTORY OF D + C PAST SURGICAL HISTORY OF Gallbladder duct stones Family History FAMILY HISTORY Problem Relation Age of Onset Breast Cancer Mother Coronary Artery Disease Father Diabetes Son Kidney Disease Son Patient Allergies ALLERGIES Allergen Reactions Amoxicillin Rash Current Medications Current Outpatient Medications on File Prior to Visit Medication Sig losartan (COZAAR) 100 mg tablet Take 1 tablet by mouth once daily. meloxicam (MOBIC) 15 mg tablet Take 1 tablet by mouth once daily. For joint pain, Take with food. alendronate (FOSAMAX) 70 mg tablet Take 1 tablet by mouth one time a week. Take with a full glass of water, on an empty stomach; do NOT lie down for 30minutes. metoprolol succinate ER (TOPROL XL) 100 mg Take 1 tablet by mouth once daily. amLODIPine (NORVASC) 10 mg tablet Take 1 tablet by mouth once daily. phenazopyridine (PYRIDIUM) 200 mg tablet Take 1 tablet by mouth three times daily as needed. alendronate (FOSAMAX) 70 mg tablet Take 1 tablet by mouth one time a week. Take with a full glass of water, on an empty stomach; do NOT lie down for 30minutes. glimepiride (AMARYL) 1 mg tablet Take 2 tablets by mouth twice daily. TRUE METRIX GLUCOSE TEST STRIP test strip 1 Strip as directed. Test up to 4x daily. Chromium Picolinate 200 mcg tab Take 1 tablet by mouth once daily. Potassium 99 mg tab Take 1 tablet by mouth once daily. Takes occasionally CALCIUM CARBONATE/VITAMIN D2 (CALCIUM + VITAMIN D ORAL) Take by mouth once daily. MULTIVIT-MIN/IRON/FOLIC/LUTEIN (CENTRUM SILVER WOMEN ORAL) Take by mouth once daily. UBIDECARENONE (CO Q-10 ORAL) Take by mouth once daily. GLUCOSAMINE HCL/CHONDR BERNARD A NA (OSTEO BI-FLEX ORAL) Take by mouth once daily. No current facility-administered medications on file prior to visit. Social History Social History Tobacco Use Smoking status: Never Smokeless tobacco: Never Substance Use Topics Alcohol use: No Drug use: No Review of Symptoms REVIEW OF SYSTEMS SEE HPI EXAM: BP 150/80 Pulse 84 Resp 16 Wt 65.3 kg (144 lb) BMI 25.11 kg/m? General Appearance: Well appearing, alert, in no acute distress, well-hydrated, well nourished.. Abdomen: Normal abdominal exam, Abdomen soft, non-tender. Bowel sounds normal. No masses, organomegaly. Health Maintenance List PNEUMOCOCCAL: 65+(1 - PCV) Never done DTAP,TDAP,TD(1 - Tdap) Never done SHINGRIX VACCINE(1 of 2) Never done FECAL OCCULT BLOOD due on 05/01/2019 LDL CHOLESTEROL due on 12/02/2020 URINE ALBUMIN:CREATININE RATIO due on 03/18/2022 COVID-19 VACCINE(1) due on 06/07/2023 INFLUENZA(Season Ended) due on 10/19/2022 DILATED RETINAL EXAM due on 11/06/2022 DIABETIC FOOT EXAM due on 12/01/2022 HBA1C due on 12/01/2022 BONE DENSITY Completed DEPRESSION ASSESSMENT Completed ADVANCE DIRECTIVE DISCUSSION Discontinued ASSESSMENT/PLAN: 1. Urinary frequency - ICD9: 788.41, ICD10: R35.0 (primary diagnosis) acute - Send urine for culture - Patient education for prevention given - URINE CULTURE 2. Urge incontinence of urine - ICD9: 788.31, ICD10: N39.41 - INCONTINENCE PAD, LINER, DISPOSABLE Dereck Barnett APRN.CUSTOMER SOLUTIONS SUPERVISOR [facility] 07-19-2022 History of Present illness Narrative Chief Complaint Patient presents with: UTI HPI Anahi Diallo is a 81 year old female who presents here today for Above Complaints.. Patient presents for urinary frequency. Patient has been treated twice in the past 3 months for UTI. Past medical history, appointments, medications, allergies reviewed. Previous Medical History PAST MEDICAL HISTORY Diagnosis Date Hallux valgus, acquired 11/07/2009 HTN (hypertension) Nonrheumatic mitral valve regurgitation echo wnl Type 2 diabetes mellitus with complication (HCC) 04/05/2017 Type II or unspecified type diabetes mellitus without mention of complication, not stated as uncontrolled Previous Surgical History PAST SURGICAL HISTORY Procedure Laterality Date LAPAROSCOPY SURG CHOLECYSTECTOMY Cholecystectomy, lap PAST SURGICAL HISTORY OF D + C PAST SURGICAL HISTORY OF Gallbladder duct stones Family History FAMILY HISTORY Problem Relation Age of Onset Breast Cancer Mother Coronary Artery Disease Father Diabetes Son Kidney Disease Son Patient Allergies ALLERGIES Allergen Reactions Amoxicillin Rash Current Medications Current Outpatient Medications on File Prior to Visit Medication Sig losartan (COZAAR) 100 mg tablet Take 1 tablet by mouth once daily. meloxicam (MOBIC) 15 mg tablet Take 1 tablet by mouth once daily. For joint pain, Take with food. alendronate (FOSAMAX) 70 mg tablet Take 1 tablet by mouth one time a week. Take with a full glass of water, on an empty stomach; do NOT lie down for 30minutes. metoprolol succinate ER (TOPROL XL) 100 mg Take 1 tablet by mouth once daily. amLODIPine (NORVASC) 10 mg tablet Take 1 tablet by mouth once daily. phenazopyridine (PYRIDIUM) 200 mg tablet Take 1 tablet by mouth three times daily as needed. alendronate (FOSAMAX) 70 mg tablet Take 1 tablet by mouth one time a week. Take with a full glass of water, on an empty stomach; do NOT lie down for 30minutes. glimepiride (AMARYL) 1 mg tablet Take 2 tablets by mouth twice daily. TRUE METRIX GLUCOSE TEST STRIP test strip 1 Strip as directed. Test up to 4x daily. Chromium Picolinate 200 mcg tab Take 1 tablet by mouth once daily. Potassium 99 mg tab Take 1 tablet by mouth once daily. Takes occasionally CALCIUM CARBONATE/VITAMIN D2 (CALCIUM + VITAMIN D ORAL) Take by mouth once daily. MULTIVIT-MIN/IRON/FOLIC/LUTEIN (CENTRUM SILVER WOMEN ORAL) Take by mouth once daily. UBIDECARENONE (CO Q-10 ORAL) Take by mouth once daily. GLUCOSAMINE HCL/CHONDR BERNARD A NA (OSTEO BI-FLEX ORAL) Take by mouth once daily. No current facility-administered medications on file prior to visit. Social History Social History Tobacco Use Smoking status: Never Smokeless tobacco: Never Substance Use Topics Alcohol use: No Drug use: No Review of Symptoms REVIEW OF SYSTEMS SEE HPI EXAM: BP 150/80 Pulse 84 Resp 16 Wt 65.3 kg (144 lb) BMI 25.11 kg/m General Appearance: Well appearing, alert, in no acute distress, well-hydrated, well nourished.. Abdomen: Normal abdominal exam, Abdomen soft, non-tender. Bowel sounds normal. No masses, organomegaly. Health Maintenance List PNEUMOCOCCAL: 65+(1 - PCV) Never done DTAP,TDAP,TD(1 - Tdap) Never done SHINGRIX VACCINE(1 of 2) Never done FECAL OCCULT BLOOD due on 05/01/2019 LDL CHOLESTEROL due on 12/02/2020 URINE ALBUMIN:CREATININE RATIO due on 03/18/2022 COVID-19 VACCINE(1) due on 06/07/2023 INFLUENZA(Season Ended) due on 10/19/2022 DILATED RETINAL EXAM due on 11/06/2022 DIABETIC FOOT EXAM due on 12/01/2022 HBA1C due on 12/01/2022 BONE DENSITY Completed DEPRESSION ASSESSMENT Completed ADVANCE DIRECTIVE DISCUSSION Discontinued ASSESSMENT/PLAN: 1. Urinary frequency - ICD9: 788.41, ICD10: R35.0 (primary diagnosis) acute - Send urine for culture - Patient education for prevention given - URINE CULTURE 2. Urge incontinence of urine - ICD9: 788.31, ICD10: N39.41 - INCONTINENCE PAD, LINER, DISPOSABLE Dereck Barnett APRN.CUSTOMER SOLUTIONS SUPERVISOR documented in this encounter [facility] 07-18-2022 Miscellaneous Notes Pt called and is notified of providers message and instructions. Pt voices understanding. Pt scheduled tomorrow with Dereck Barnett MANAGER LABOR DELIVERY. Vannesa Cortez RN Should have an appt or urgent care. She should have another urine culture completed. Donna Max APRN.EUSEBIO Pt was treated with keflex for a UTI & finished the atb 07/05/22. Pt reports her sx did go away & she was feeling good but they returned ~ 5 days ago. Pt reports urinary frequency with small amt of output. Pt has low back ache & headache, she states these are the same sx she had with last UTI. Pt denies any vaginal itching, odor, discharge or itching. Please advise. Mehreen Salcedo LPN documented in this encounter [facility] 07-02-2022 Miscellaneous Notes Noted. Donna Max APRN.CNP Pt notified of provider message in regards to results. Pt reports she had already picked up the new atb and got started on it. Pt reports no vaginal itching, odor, or discharge. Earnestine Medrano LPN Left message to return call to office. Alon Villasenor LPN Can please let patient know that I received her urine results back. Lets change her antibiotic to cephalexin. I sent the new prescription to the pharmacy. Please verify that she doesn't have any vaginal symptoms (ie discharge, odor, burning, itching). Sometimes this is a bacteria that can be seen in the vagina. Donna Max APRN.CNP documented in this encounter [facility] 06-27-2022 Miscellaneous Notes See office notes. Donna Max APRN.CUSTOMER SOLUTIONS SUPERVISOR Protocol recommends see provider in 24 hours. Scheduled same day appt per patient request. UTI s/s 2 days. Hx of frequent UTI's last couple years- was informed she has prolapsed uterus a couple years ago. Reason for Disposition Urinating more frequently than usual (i.e., frequency) Side (flank) or lower back pain present Answer Assessment - Initial Assessment Questions 1. SYMPTOM: Urgency, frequency, flank pain 2. ONSET: 2 days ago 3. PAIN: Flank pain 4. CAUSE: UTI. AZO test strip showed positive nitrates, leukocytes negative. Hx of frequent UTI in last couple years. Female parts prolapsed. 5. OTHER SYMPTOMS: No fever. No blood in urine. Urine is clear yellow 6. : No. Protocols used: Urinary [id number] documented in this encounter [facility] 06-27-2022 Note HNO ID: [id number] Author: Donna Max APRN.CUSTOMER SOLUTIONS SUPERVISOR Service: ? Author Type: Nurse Practitioner Type: Progress Notes Filed: 06/27/2022 4:22 PM Note Text: 81 year old female with c/o of urinary symptoms X 2 days. Frequency: Yes. Urgency: Yes. Dysuria: No. Hematuria: No. Urine leakage: Yes. Fever/Chills: No. Abdominal Pain: No. Back Pain: chronic. Nausea/vomiting: No. Frequency UTIs: Yes. Last visit was in April. Vaginal symptoms: No. : No. 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 90 tablet 1 meloxicam (MOBIC) 15 mg tablet Take 1 tablet by mouth once daily. For joint pain, Take with food. 90 tablet 1 alendronate (FOSAMAX) 70 mg tablet Take 1 tablet by mouth one time a week. Take with a full glass of water, on an empty stomach; do NOT lie down for 30minutes. 12 tablet 3 metoprolol succinate ER (TOPROL XL) 100 mg Take 1 tablet by mouth once daily. 30 tablet 1 amLODIPine (NORVASC) 10 mg tablet Take 1 tablet by mouth once daily. 90 tablet 1 phenazopyridine (PYRIDIUM) 200 mg tablet Take 1 tablet by mouth three times daily as needed. 6 tablet 0 alendronate (FOSAMAX) 70 mg tablet Take 1 tablet by mouth one time a week. Take with a full glass of water, on an empty stomach; do NOT lie down for 30minutes. 12 tablet 3 glimepiride (AMARYL) 1 mg tablet Take 2 tablets by mouth twice daily. 60 tablet 6 TRUE METRIX GLUCOSE TEST STRIP test strip 1 Strip as directed. Test up to 4x daily. Chromium Picolinate 200 mcg tab Take 1 tablet by mouth once daily. Potassium 99 mg tab Take 1 tablet by mouth once daily. Takes occasionally CALCIUM CARBONATE/VITAMIN D2 (CALCIUM + VITAMIN D ORAL) Take by mouth once daily. MULTIVIT-MIN/IRON/FOLIC/LUTEIN (CENTRUM SILVER WOMEN ORAL) Take by mouth once daily. UBIDECARENONE (CO Q-10 ORAL) Take by mouth once daily. GLUCOSAMINE HCL/CHONDR BERNARD A NA (OSTEO BI-FLEX ORAL) Take by mouth once daily. No current facility-administered medications for this visit. General Appearance: Well appearing, alert, in no acute distress, well-hydrated, well nourished.. Skin: Skin color, texture, turgor normal, no suspicious rashes or lesions. Head: Normocephalic, no masses, lesions, tenderness or abnormalities. Eyes: Anicteric sclera. Extraocular movements are intact. Lungs: Lungs clear to auscultation. No wheezing, rhonchi, rales. Heart: RRR without murmur, gallop, or rubs. No ectopy. Abdomen: Abdomen soft, non-tender. No masses, organomegaly. No CVA tenderness. Neurologic: Gait normal. Urine dip: + leuk, neg blood, neg nitrite, neg protein ASSESSMENT/PLAN: 1. Acute cystitis without hematuria - ICD9: 595.0, ICD10: N30.00 (primary diagnosis) Will go ahead and start macrobid. Send urine for culture. Stay well hydrated. Follow-up pending results. - NITROFURANTOIN MONOHYDRATE AND MACROCRYSTAL 100 MG ORAL CAP - URINE CULTURE 2. UTI symptoms - ICD9: 788.99, ICD10: R39.9 - UA DIP, URINE (POC) Discussed treatment plan and patient voices understanding. Patient's questions answered appropriately. Medications and potential side effects were discussed and patient voices understanding. Return to the office as scheduled or as needed for worsening/no improvement. Donna aMx APRN.[facility] 06-12-2022 Note Patient Outreach (IN TMMN) ANAHI DIALLO ([id number]) 1940 F Date Time Provider Department 06/12/22 TAHIR VEGA During your visit today, we recorded the following information about you: Allergies As of Date: 06/12/2022 Noted Allergy Reaction AMOXICILLIN 10/02/2010 2 - Rash Date Reviewed: 06/06/2022 Reviewed by: Sonya Courtney LPN - Fully Assessed Visit Diagnosis:Type 2 diabetes mellitus without complication, without long-term current use of insulin (HCC) [E11.9] Order(s):HGB A1C [[id number]] Order #: [id number] FUTURE Prescriptions as of 06/15/2022 - losartan (COZAAR) 100 mg tablet Take 1 tablet by mouth once daily. - meloxicam (MOBIC) 15 mg tablet Take 1 tablet by mouth once daily. For joint pain, Take with food. - alendronate (FOSAMAX) 70 mg tablet Take 1 tablet by mouth one time a week. Take with a full glass of water, on an empty stomach; do NOT lie down for 30minutes. - metoprolol succinate ER (TOPROL XL) 100 mg Take 1 tablet by mouth once daily. - amLODIPine (NORVASC) 10 mg tablet Take 1 tablet by mouth once daily. - phenazopyridine (PYRIDIUM) 200 mg tablet Take 1 tablet by mouth three times daily as needed. - alendronate (FOSAMAX) 70 mg tablet Take 1 tablet by mouth one time a week. Take with a full glass of water, on an empty stomach; do NOT lie down for 30minutes. - glimepiride (AMARYL) 1 mg tablet Take 2 tablets by mouth twice daily. - TRUE METRIX GLUCOSE TEST STRIP test strip 1 Strip as directed. Test up to 4x daily. - Chromium Picolinate 200 mcg tab Take 1 tablet by mouth once daily. - Potassium 99 mg tab Take 1 tablet by mouth once daily. Takes occasionally - CALCIUM CARBONATE/VITAMIN D2 (CALCIUM + VITAMIN D ORAL) Take by mouth once daily. - MULTIVIT-MIN/IRON/FOLIC/LUTEIN (CENTRUM SILVER WOMEN ORAL) Take by mouth once daily. - UBIDECARENONE (CO Q-10 ORAL) Take by mouth once daily. - GLUCOSAMINE HCL/CHONDR BERNARD A NA (OSTEO BI-FLEX ORAL) Take by mouth once daily. 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*07/05/2015 02/24/2018 Hypertension, essential [I10] 04/24/2017 Dyslipidemia [E78.5] 04/24/2017 Type 2 diabetes mellitus without complication, *04/24/2017 Foot pain, right [M79.671] 10/29/2017 Right hand pain [M79.641] 04/28/2018 Recurrent UTI (urinary tract infection) [N39.0] 04/28/2018 LVH (left ventricular hypertrophy) [I51.7] 06/07/2020 Age-related osteoporosis without current pathol*06/07/2020 Nonrheumatic mitral valve regurgitation [I34.0] Primary osteoarthritis of right foot [M19.071] 04/28/2021 Vitamin D deficiency [E55.9] 12/06/2021 Arthritis, multiple joint involvement [M12.9] 12/06/2021 Encounter Status:Closed by EPIC, PRODUSER on 06/15/22 [facility] 06-08-2022 History of Present illness Narrative Images from the original note were not included. Patient ID: Anahi Diallo is a 81 y.o. female 1940 Subjective: Anahi Diallo presents for follow-up of Type 2 diabetes Patient has had diabetes for 29 years. Diagnosed in 1992 Interval update: 06/10: BG and labs reviewed. A1C 6.7%. Patient currently taking glimepiride 1-2.5 mg 1-2 times daily. Patient reports eating less carefully with more sweet corn, cookies, etc. Outpatient Medications Marked as Taking for the 06/08/22 encounter (Office Visit) with Reggie Son CNP: alendronate (FOSAMAX) 70 MG tablet, Take 1 tablet by mouth one time a week. Take with a full glass of water, on an empty stomach; do NOT lie down for 30minutes. amLODIPine (NORVASC) 10 MG tablet, Take 1 (one) tablet (10 mg total) by mouth daily . blood sugar diagnostic (True Metrix Glucose Test Strip) strips, TEST BLOOD SUGAR DIRECTED 4 x DAILY. E11.9 . blood-glucose meter kit, use as directed to check BG 4x daily DX code E11.9 ( True Metrix Air Meter) . calcium citrate-vitamin D (CITRACAL+D) 315-200 mg-unit per tablet, take 2 Tablet by Oral route every day. cholecalciferol, vitamin D3, (VITAMIN D3 ORAL), Take 4-6 tablets by mouth daily . chromium picolinate 200 mcg Tab, Take 2 (two) tablets (400 mcg total) by mouth 2 (two) times a day . coenzyme Q10 10 mg capsule, Take 10 mg by mouth daily . cranberry fruit concentrate (AZO CRANBERRY ORAL), Take 2 capsules by mouth 2 (two) times a day . glimepiride (AMARYL) 1 MG tablet, Take 2 tablets QID (8 mg daily) . glucosamine-chondroitin 250-200 mg Tab, Take 1 tablet by mouth 2 (two) times a day . GNP LANCING DEVICE Misc, USE TO CHECK BLOOD GLUCOSE 4 TIMES A DAY losartan (COZAAR) 100 MG tablet, Take 1 (one) tablet (100 mg total) by mouth every morning . meloxicam (MOBIC) 15 MG tablet, multivitamin (THERAGRAN) per tablet, take 1 tablet by oral route every day with food. naproxen (NAPROSYN) 250 MG tablet, Take 1 (one) tablet (250 mg total) by mouth 2 (two) times a day as needed . Review of Systems: Review of Systems Constitutional: Positive for unexpected weight change (weight has decreased 7 lbs in last 6 months ). Negative for fatigue. Eyes: Negative for visual disturbance. Respiratory: Negative for cough and shortness of breath. Cardiovascular: Negative for chest pain and leg swelling. Gastrointestinal: Negative for abdominal pain, constipation, diarrhea, nausea and vomiting. Endocrine: Negative for polydipsia, polyphagia and polyuria. Genitourinary: Negative for frequency and urgency. Skin: Negative for wound. Neurological: Positive for numbness (pain in feet). Psychiatric/Behavioral: Negative for sleep disturbance. The patient is not nervous/anxious. The following portions of the patient's history were reviewed and updated as appropriate: allergies, current medications, past family history, past medical history, past social history, past surgical history and problem list. Objective: BP (!) 151/63 Pulse 68 Wt 65.3 kg (144 lb) BMI 24.72 kg/m Wt Readings from Last 3 Encounters: 06/08/22 65.3 kg (144 lb) 12/08/21 64.9 kg (143 lb) 06/09/21 66.2 kg (145 lb 14.4 oz) Physical Exam: General: alert, appears stated age and cooperative Eyes: conjunctivae/corneas clear. PERRL, EOM's intact. Neck: no adenopathy, supple, symmetrical, trachea midline. Thyroid: No thyromegaly appreciated Lung: clear to auscultation bilaterally Heart: regular rate and rhythm, S1, S2 normal, no murmur, click, rub or gallop Extremities: extremities normal, atraumatic, no cyanosis or edema Feet: Dry skin, Bilateral Feet: warm, good capillary refill, normal DP, onychomycosis, calluses and venous stasis dermatitis noted. Bilateral onychomycosis Monofilament exam not assessed, bilateral lower extremities. Neuro: normal without focal findings, mental status, speech normal, alert and oriented x3 and TUAN Laboratory Review: BP (!) 151/63 Pulse 68 Wt 65.3 kg (144 lb) BMI 24.72 kg/m Lab Results Component Value Date HGBA1C 6.7 (H) 06/01/2022 Glucose (mg/dL) Date Value 06/01/2022 116 (H) Creatinine (mg/dL) Date Value 06/01/2022 0.70 04/18/2019 0.67 Lab Results Component Value Date CHOL 167 06/01/2022 TRIG 111 06/01/2022 HDL 60 06/01/2022 LDLCALC 85 06/01/2022 Lab Results Component Value Date TSH 1.63 06/01/2022 Lab Results Component Value Date WBC 6.62 06/01/2022 HGB 13.6 06/01/2022 HCT 40.1 06/01/2022 MCV 93.0 06/01/2022 PLT 302 06/01/2022 Date: 06/01/22 *labs reviewed 06/08/22 Hgb A1c: 6.7% Creat: 0.70; eGFR: 86 AST: 12; ALT: 22 K: 4.1 CBC: WBC:6.62; Hgb: 13.6; Hct: 40.1; Plt: 302 Tchol: 167; Tri ; HDL: 60 ; LDL: 85 TSH: 1.63 ; FreeT4: 0.9 Microalbumin/creatinine Ratio: 11/30/21 Hgb A1c: 7.6% Creat: 0.72; eGFR: 84 AST: 12; ALT: 21 K: 4.5 TSH: 1.46 ; FreeT4: 1.0 Microalbumin/creatinine Ratio: 03/18/21 Hgb A1c: 6.8% Creat: 0.67; eGFR: >60 AST: 15; ALT: 16 K: 4.9 CBC: WBC:9.87; Hgb: 13.1; Hct: 40.0; Plt: 347 25-OH Vitamin D: 82.7 12/05/20 Hgb A1c: 6.9% Creat: 0.79; eGFR: 70 AST: 15; ALT: 23 K: 4.5 CBC: WBC:6.32; Hgb: 13.9; Hct: 41.1; Plt: 313 Tchol: 170; Tri ; HDL: 65 ; LDL: 89 TSH: 1.52 ; FreeT4: 1.0 Microalbumin/creatinine Ratio: 06/02/20 Hgb A1c: 7.0% Creat: 0.82; eGFR: 68 AST: 16; ALT: 28 K: 4.2 CBC: WBC:6.90; Hgb: 13.2; Hct: 39.2; Plt: 319 Microalbumin/creatinine Ratio: 7 25-OH Vitamin D: 72 12/03/19 Hgb A1c: 7.2% Creat: 0.80; eGFR: 70 AST: 19; ALT: 25 K: 4.5 CBC: WBC:6.94; Hgb: 13.1; Hct: 39.7; Plt: 287 Tchol: 162; Tri ; HDL: 51 ; LDL: 84 TSH: 1.73 ; FreeT4: 1.0 Microalbumin/creatinine Ratio: 9 04/18/19 Hgb A1c: 7.3% Creat: 0.67; eGFR: >60 AST: 20; ALT: 14 K: 4.3 CBC: WBC: 7.32; Hgb: 13.3; Hct: 39; Plt: 293. Tchol: 153; Tri ; HDL: 56 ; LDL: 81 11/25/18 Hgb A1c: 6.7% Creat: 0.78; eGFR: 73 AST: 14; ALT: 21 K: 4.4 CBC: WBC:6.10; Hgb: 13.4; Hct: 40.0; Plt: 313 Tchol: 158; Tri ; HDL: 52 ; LDL: 77 TSH: 1.89 ; FreeT4: 0.9 Microalbumin/creatinine Ratio: 18 04/22/18 Hgb A1c: 6.7 Creat: 0.67; eGFR: >60 K: 4.5 Tchol: 164; Tri ; HDL: 55 ; LDL: 88 Assessment/Plan: Dx: 1. Type II diabetes mellitus with neurological manifestations (HCC) Comprehensive Metabolic Panel Hemoglobin A1c 2. Essential hypertension Type 2 diabetes, under good control Currently taking: Glimepiride 2 mg three times daily with meals and extra 1/2-3 tablet at bedtime if BG >200. Current Hemoglobin A1C= 6.8% 03/11 Lab Results Component Value Date HGBA1C 6.7 (H) 06/01/2022 HGBA1C 7.6 (H) 11/30/2021 HGBA1C 6.9 (H) 12/05/2020 Weight trend: has decreased 3 lbs. Current diet: carb controlled Current exercise: active Current monitoring regimen: home blood tests - 4 times daily Home blood sugar records: Fasting B-127 Pre-lunch B-147 Pre-supper B-252 Bedtime B-226 Any episodes of hypoglycemia? yes - infrequently NOTES: Patient doing well with Hgb A1c 6.7% 06/10. Currently taking 1.5-2 mg BID-TID at meals. PLAN: See below Retinopathy: Negative Exam within last 12 months: yes Date: 10/08 Contract Designer/Hopper Attendant: Dr. Hobson Other Ophthalmologic Conditions: None known Nephropathy: Negative Creat: 0.67 03/11. Lab Results Component Value Date CREATININE 0.70 06/01/2022 EXTEGFR >=60 11/06/2017 EXTEGFRAFAME >=60 11/06/2017 Microlbumin/creat ratio: Lab Results Component Value Date EXTMICROALBC 8 11/07/2016 Is patient on TRAVIS inhibitor or angiotensin II receptor yan? yes Losartan Peripheral Neuropathy: Negative Denies symptoms associated with neuropathy (numbness and/or tingling) Autonomic Neuropathy: Negative Hypoglycemia unawareness. Senses low BG at <100mg/dl. Other: Hyperlipidemia: Positive Currently taking: No lipid lowering agents. Lipids and LFT's WNL Lab Results Component Value Date AST 12 06/01/2022 ALT 06/01/2022 Lab Results Component Value Date EXTCHOL 153 04/18/2019 EXTTRIG 78 04/18/2019 EXTHDL 56 04/18/2019 EXTLDLCALC 81 04/18/2019 Hypertension: Positive. Currently taking: losartan (Cozaar) recently increased by PCP. BP: (!) 151/63 Patient instructed to monitor BP at home, patient to notify PCP if remains elevated or runs higher. Cardiac: Negative Experiencing chest pain No . Experiencing shortness of breath No History of No history of CAD Vascular: Negative History of None Feet: Last foot exam: 06/08/22 Follows with Podiatry: Yes Apparatus Lineman: Dr. Cantu History of foot ulceration: No History of amputation: No Left foot with two tendon tears and stress fracture 2018, wears braces off and on. Foot pain continues. Has had X-rays and MRI that revealed bone spurs. Reports continuous pain. Bilateral onychomycosis Physical exam completed by provider on 06/08/22 Positive Foot Deformity ( hammertoes, etc). Positive Peripheral Neuropathy with Callus Formation present Negative History of amputation Negative History of Foot Ulcers Positive Pre-ulcerative Callus Negative Poor Circulation due to (PVD, PAD, Chronic edema) Positive Onychomycosis Thyroid: TSH: 1.46 ; FreeT4: 1.0 Lab Results Component Value Date TSH 1.63 06/01/2022 Negative Other: Plan: 1. Rx changes: Continue current regimen Glimepiride 1.5-2 mg three times daily with 0.5-2 mg at HS if necessary. 2. Education: Reviewed ABCs of diabetes management (respective goals in parentheses): A1C (7.0-8.0), blood pressure (<130/80), and cholesterol (LDL <100). 3. Compliance at present is estimated to be excellent. Efforts to improve compliance (if necessary) will be directed at increased exercise. Also, will be directed at dietary modifications: Limit starches, carbohydrates and concentrated sugar sources 4. Follow up: 6 months 5. Record blood sugar readings as instructed. Call if BG consistently <70 or >250. [phone] Patient has been checking blood glucoses 3-4 times daily for the past 90 days. Patient needs to continue checking blood glucoses 3-4 times daily. Blood glucose readings are used to adjust medication or insulin doses for meals, monitor dietary compliance, and adjust for high or low blood glucoses by patient on a daily basis. Blood glucose readings are reviewed at office visits for adjustment in medication regimen and assistance with dietary management, and other self-management issues including exercise, etc. Prognosis: Good. Duration of need for diabetes testing equipment: Permanent #150 strips/month prescribed. 6. Bring blood sugar meter to follow up appointment. Orders Placed This Encounter Procedures Comprehensive Metabolic Panel Hemoglobin A1c documented in this encounter [facility] 06-06-2022 Note HNO ID: [id number] Author: Tahir Vega, DO Service: ? Author Type: Physician Type: Progress Notes Filed: 06/06/2022 12:27 PM Note Text: Patient presents with: 6 Month Exam HPI: Anahi Diallo is a 81 year old female who presents to the office today for review of health conditions. Concerns today: Overall feels she is doing well. She has had some stressors with her son Dino and heart surgery needs recently as well as her daughter Argelia and her broken humerus bone and having to help her around the house and is getting her own bathroom remodeled at this time. Arthritis multiple joints of the body, b/l foot pain that is chronic, feels she is stable but does limit her activity due to this. No falls recently, no leg swelling. Ms. Diallo has past history of diabetes. Since our last visit she denies excessive thirst or increased frequency of urination, chest pain or dyspnea , new or unusual visual symptoms, and low sugar/hypoglycemic reactions. Depression- no. Follows a diabetic diet some of the time. She is compliant with medication(s) and is tolerating med(s) without any side effects. She reports checking her glucose on a once a day schedule with sugars in the <150 range. Patient's last HgA1C was Hemoglobin A1C (%) Date Value 03/18/2021 6.8 12/04/2019 7.2 04/18/2019 7.3 ) Last Ophthalmology exam was within the past 12 months Ms. Diallo reports history of hyperlipidemia. Current therapy includes diet and exercise. Denies side effects of muscle weakness or achiness. Her most recent lipid panels are reviewed. Cholesterol, Total (mg/dL) Date Value 04/22/2018 164 Total Cholesterol, Nonfasting (mg/dL) Date Value 04/18/2019 153 HDL Cholesterol (mg/dL) Date Value 04/22/2018 55 HDL Cholesterol, Nonfasting (mg/dL) Date Value 04/18/2019 56 LDL Cholesterol (mg/dL) Date Value 04/22/2018 88 LDL Cholesterol, Nonfasting (mg/dL) Date Value 04/18/2019 81 LDL (no units) Date Value 12/03/2019 84 Triglyceride (mg/dL) Date Value 04/22/2018 103 Triglycerides, Nonfasting (mg/dL) Date Value 04/18/2019 78 Ms. Diallo indicates a history of hypertension and states that she is feeling well and denies any symptoms referable to elevated blood pressure. Specifically denies headache, chest pain, palpitations, dyspnea, and peripheral edema. Patient denies any side effects of her medication(s) and is compliant with their regimen. Last 3 Encounter BP Readings: Date: BP: 06/06/2022 134/80 05/14/2022 156/74 12/06/2021 138/72 She watches her diet for sodium, low fat and low cholesterol some of the time. She does not check BP's generally. Anahi gets minimal exercise. PAST MEDICAL HISTORY Diagnosis Date Hallux valgus, acquired 11/07/2009 HTN (hypertension) Nonrheumatic mitral valve regurgitation echo wnl Type 2 diabetes mellitus with complication (HCC) 04/05/2017 Type II or unspecified type diabetes mellitus without mention of complication, not stated as uncontrolled PAST SURGICAL HISTORY Procedure Laterality Date LAPAROSCOPY SURG CHOLECYSTECTOMY Cholecystectomy, lap PAST SURGICAL HISTORY OF D + C PAST SURGICAL HISTORY OF Gallbladder duct stones Social History Tobacco Use Smoking status: Never Smokeless tobacco: Never Substance Use Topics Alcohol use: No Drug use: No FAMILY HISTORY Problem Relation Age of Onset Breast Cancer Mother Coronary Artery Disease Father Diabetes Son Kidney Disease Son Allergies: ALLERGIES Allergen Reactions Amoxicillin Rash Current Meds: alendronate (FOSAMAX) 70 mg tablet Take 1 tablet by mouth one time a week. Take with a full glass of water, on an empty stomach; do NOT lie down for 30minutes. metoprolol succinate ER (TOPROL XL) 100 mg Take 1 tablet by mouth once daily. amLODIPine (NORVASC) 10 mg tablet Take 1 tablet by mouth once daily. phenazopyridine (PYRIDIUM) 200 mg tablet Take 1 tablet by mouth three times daily as needed. alendronate (FOSAMAX) 70 mg tablet Take 1 tablet by mouth one time a week. Take with a full glass of water, on an empty stomach; do NOT lie down for 30minutes. glimepiride (AMARYL) 1 mg tablet Take 2 tablets by mouth twice daily. Chromium Picolinate 200 mcg tab Take 1 tablet by mouth once daily. CALCIUM CARBONATE/VITAMIN D2 (CALCIUM + VITAMIN D ORAL) Take by mouth once daily. MULTIVIT-MIN/IRON/FOLIC/LUTEIN (CENTRUM SILVER WOMEN ORAL) Take by mouth once daily. GLUCOSAMINE HCL/CHONDR BERNARD A NA (OSTEO BI-FLEX ORAL) Take by mouth once daily. losartan (COZAAR) 100 mg tablet Take 1 tablet by mouth once daily. meloxicam (MOBIC) 15 mg tablet Take 1 tablet by mouth once daily. For joint pain, Take with food. TRUE METRIX GLUCOSE TEST STRIP test strip 1 Strip as directed. Test up to 4x daily. Potassium 99 mg tab Take 1 tablet by mouth once daily. Takes occasionally UBIDECARENONE (CO Q-10 ORAL) Take by mouth once daily. Review of Systems: The (more content not included)... [facility] 06-06-2022 History of Present illness Narrative Patient presents with: 6 Month Exam HPI: Anahi Diallo is a 81 year old female who presents to the office today for review of health conditions. Concerns today: Overall feels she is doing well. She has had some stressors with her son Dino and heart surgery needs recently as well as her daughter Argelia and her broken humerus bone and having to help her around the house and is getting her own bathroom remodeled at this time. Arthritis multiple joints of the body, b/l foot pain that is chronic, feels she is stable but does limit her activity due to this. No falls recently, no leg swelling. Ms. Diallo has past history of diabetes. Since our last visit she denies excessive thirst or increased frequency of urination, chest pain or dyspnea , new or unusual visual symptoms, and low sugar/hypoglycemic reactions. Depression- no. Follows a diabetic diet some of the time. She is compliant with medication(s) and is tolerating med(s) without any side effects. She reports checking her glucose on a once a day schedule with sugars in the <150 range. Patient's last HgA1C was Hemoglobin A1C (%) Date Value 03/18/2021 6.8 12/04/2019 7.2 04/18/2019 7.3 ) Last Ophthalmology exam was within the past 12 months Ms. Diallo reports history of hyperlipidemia. Current therapy includes diet and exercise. Denies side effects of muscle weakness or achiness. Her most recent lipid panels are reviewed. Cholesterol, Total (mg/dL) Date Value 04/22/2018 164 Total Cholesterol, Nonfasting (mg/dL) Date Value 04/18/2019 153 HDL Cholesterol (mg/dL) Date Value 04/22/2018 55 HDL Cholesterol, Nonfasting (mg/dL) Date Value 04/18/2019 56 LDL Cholesterol (mg/dL) Date Value 04/22/2018 88 LDL Cholesterol, Nonfasting (mg/dL) Date Value 04/18/2019 81 LDL (no units) Date Value 12/03/2019 84 Triglyceride (mg/dL) Date Value 04/22/2018 103 Triglycerides, Nonfasting (mg/dL) Date Value 04/18/2019 78 Ms. Diallo indicates a history of hypertension and states that she is feeling well and denies any symptoms referable to elevated blood pressure. Specifically denies headache, chest pain, palpitations, dyspnea, and peripheral edema. Patient denies any side effects of her medication(s) and is compliant with their regimen. Last 3 Encounter BP Readings: Date: BP: 06/06/2022 134/80 05/14/2022 156/74 12/06/2021 138/72 She watches her diet for sodium, low fat and low cholesterol some of the time. She does not check BP's generally. Anahi gets minimal exercise. PAST MEDICAL HISTORY Diagnosis Date Hallux valgus, acquired 11/07/2009 HTN (hypertension) Nonrheumatic mitral valve regurgitation echo wnl Type 2 diabetes mellitus with complication (HCC) 04/05/2017 Type II or unspecified type diabetes mellitus without mention of complication, not stated as uncontrolled PAST SURGICAL HISTORY Procedure Laterality Date LAPAROSCOPY SURG CHOLECYSTECTOMY Cholecystectomy, lap PAST SURGICAL HISTORY OF D + C PAST SURGICAL HISTORY OF Gallbladder duct stones Social History Tobacco Use Smoking status: Never Smokeless tobacco: Never Substance Use Topics Alcohol use: No Drug use: No FAMILY HISTORY Problem Relation Age of Onset Breast Cancer Mother Coronary Artery Disease Father Diabetes Son Kidney Disease Son Allergies: ALLERGIES Allergen Reactions Amoxicillin Rash Current Meds: alendronate (FOSAMAX) 70 mg tablet Take 1 tablet by mouth one time a week. Take with a full glass of water, on an empty stomach; do NOT lie down for 30minutes. metoprolol succinate ER (TOPROL XL) 100 mg Take 1 tablet by mouth once daily. amLODIPine (NORVASC) 10 mg tablet Take 1 tablet by mouth once daily. phenazopyridine (PYRIDIUM) 200 mg tablet Take 1 tablet by mouth three times daily as needed. alendronate (FOSAMAX) 70 mg tablet Take 1 tablet by mouth one time a week. Take with a full glass of water, on an empty stomach; do NOT lie down for 30minutes. glimepiride (AMARYL) 1 mg tablet Take 2 tablets by mouth twice daily. Chromium Picolinate 200 mcg tab Take 1 tablet by mouth once daily. CALCIUM CARBONATE/VITAMIN D2 (CALCIUM + VITAMIN D ORAL) Take by mouth once daily. MULTIVIT-MIN/IRON/FOLIC/LUTEIN (CENTRUM SILVER WOMEN ORAL) Take by mouth once daily. GLUCOSAMINE HCL/CHONDR BERNARD A NA (OSTEO BI-FLEX ORAL) Take by mouth once daily. losartan (COZAAR) 100 mg tablet Take 1 tablet by mouth once daily. meloxicam (MOBIC) 15 mg tablet Take 1 tablet by mouth once daily. For joint pain, Take with food. TRUE METRIX GLUCOSE TEST STRIP test strip 1 Strip as directed. Test up to 4x daily. Potassium 99 mg tab Take 1 tablet by mouth once daily. Takes occasionally UBIDECARENONE (CO Q-10 ORAL) Take by mouth once daily. Review of Systems: The remainder of the review of systems is negative. PE: 06/06/22 0835 BP: 134/80 Pulse: 64 Resp: 16 Temp: 36.1 C (97 F) TempSrc: Left Tympanic Weight: 65.8 kg (145 lb) Gen: A&O, NAD, non-toxic appearing, Pleasant, hard of hearing. cooperative HEENT: NT/AC, PERRLA, EOMs intact b/l, nares clear and patent b/l, pharynx without erythema, exudate or lesions. Uvula midline. MMM Neck: supple, No cervical LAD, no thyromegaly, no carotid bruits CV: RRR, normal S1 and S2, no murmurs, no gallops, no rubs, Pulses 2+ and symmetric in UE and LE b/l Lungs: normal respiratory effort, CTA b/l, no wheezing or rhonchi or rales Abd: soft, NT, ND, +BS, no hepatosplenomegaly MS: arthritis changes of hands and feet and spine Neuro: CN II-XII intact b/l No edema, normal peripheral pulses Skin: warm, dry, intact, No rashes or lesions on exposed skin. Foot exam: Monofilament wnl on right and left feet. ASSESSMENT/PLAN: 1. Type 2 diabetes mellitus without complication, without long-term current use of insulin (HCC) - ICD9: 250.00, ICD10: E11.9 (primary diagnosis) - Controlled - Improving control - Continue current medications - Blood glucose monitoring on a once daily schedule - Counseled on healthy diet and regular exercise - Discussed need for and benefit of weight loss. BMI 25.28 kg/(m^2) 2. Hypertension, essential - ICD9: 401.9, ICD10: I10 - good control - Continue current medication(s) - Encouraged dietary sodium restriction/DASH diet - Recommended regular aerobic exercise. - Recommend home blood pressure monitoring, to bring results in on next visit - Discussed need and benefit for weight loss. - Goal of BP <130/80 - LOSARTAN 100 MG TABLET 3. Dyslipidemia - ICD9: 272.4, ICD10: E78.5 - to be determined upon return of lab results - Encouraged following a low fat, low cholesterol diet. - Discussed the benefits of regular aerobic exercise and weight loss. 4. Age-related osteoporosis without current pathological fracture - ICD9: 733.01, ICD10: M81.0 - Reviewed the need for Calcium and Vitamin D supplements and weight bearing exercise as tolerated 5. Arthritis, multiple joint involvement - ICD9: 716.99, ICD10: M12.9 Stable, chronic 6. Vitamin D deficiency - ICD9: 268.9, ICD10: E55.9 - continue supplement Tahir Vega DO To ER if develops chest pain, shortness of breath, or severe worsening of symptoms. Discussed risks, benefits, alternatives, and potential side effects of medications. Patient expressed understanding and agreed with the plan. Tahir Vega DO [address] [place] [address] documented in this encounter [facility] 05-30-2022 History of Present illness Narrative Nail care And updated shoes. Patient is a pleasant 81-year-old diabetic female who comes in to have her nails cut. States that they are very elongated thickened and cut. She has her diabetes managed by endocrinology. Additionally today states that she does need a new set of diabetic shoes and inserts as her last are very old. Does have complaints of tingling and burning distally with numbness. Physical Vascular pedal pulses palpable 2 out of 4, PT pulses are nonpalpable bilaterally. CFT is delayed with the foot and ankle edema. Derm: Skin is shiny dystrophic and avascular. Skin is warm to cool proximal to distal. Nails left 1 through 5 and right foot [id number] elongated thickened dystrophic crumbling Musculoskeletal: Muscle strength is 5/5 for tone. Can easily wiggle toes and clicking catching. Full subtalar is full. Neuro: Light touch is blunted distally Babinski's is blunted. 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 Patient is at high risk nail care, therefore qualifies for nail care. Sharply debrided and debulked in height and length 10 onychodystrophy chart. Nail nippers consistent with a q8 modifier. Additionally, given patient's distal peripheral neuropathy as well as at risk foot type, she does qualify for a set of diabetic shoes and inserts for protection and prevention. These are medically necessary for limb loss prevention. Low medical complexity decision making based on his shoe prescription and chronic neuropathy different and separate than her nail care. F/u in 3 months for nail care. documented in this encounter [facility] 05-28-2022 Miscellaneous Notes Last office visit: 05/14/22 F/u scheduled: 06/06/22 Judy Ortega Ma Patient has been identified by name and date of : Yes Requested Prescriptions Pending Prescriptions Disp Refills alendronate (FOSAMAX) 70 mg tablet 12 tablet 3 Sig: Take 1 tablet by mouth one time a week. Take with a full glass of water, on an empty stomach; do NOT lie down for 30minutes. RX INSTRUCTIONS: Patient aware RX will be sent to pharmacy. No need to notify patient. Isabell Dotson documented in this encounter [facility] 05-14-2022 Note HNO ID: [id number] Author: Kaushik Cortez APRN.[employer] Service: ? Author Type: Nurse Practitioner Type: Progress Notes Filed: 05/14/2022 2:16 PM Note Text: Chief Complaint Patient presents with: BP Check HPI Anahi Diallo is a 81 year old female who presents here today for Above Complaints.. Today: Last week got some deluxe mixed nuts and was eating these like crazy for about 3 days. Noticed the palms of her hands were itching-not on the skin but a deep itch. Her BP at that time was 189/87, stayed this high for several days. Since then has stayed away from salt as much as she can. Has had no caffeine for the past 3-4 days. Since then BP has come down a bit. This morning was 163/78 at 7am. Before she left for her appointment today was 137/65-had breakfast and BP pills at that point. Typically is a bit elevated at appointments. No CP, palpitations, SOB. Occasional headaches. Doesn't sleep well at night because has to get up 3 times to urinate and then can't fall back to sleep. Has been told by STATISTICAL TECHNICIAN that her pelvic organs are having low due to childbirth and age; this is why she is needing to urinate during the night so much. Recent UTI that she thinks has cleared, but would like to have her urine rechecked just in case. Past medical history, appointments, medications, allergies reviewed. Previous Medical History PAST MEDICAL HISTORY Diagnosis Date Hallux valgus, acquired 11/07/2009 HTN (hypertension) Nonrheumatic mitral valve regurgitation echo wnl Type 2 diabetes mellitus with complication (HCC) 04/05/2017 Type II or unspecified type diabetes mellitus without mention of complication, not stated as uncontrolled Previous Surgical History PAST SURGICAL HISTORY Procedure Laterality Date LAPAROSCOPY SURG CHOLECYSTECTOMY Cholecystectomy, lap PAST SURGICAL HISTORY OF D + C PAST SURGICAL HISTORY OF Gallbladder duct stones Family History FAMILY HISTORY Problem Relation Age of Onset Breast Cancer Mother Coronary Artery Disease Father Diabetes Son Kidney Disease Son Patient Allergies ALLERGIES Allergen Reactions Amoxicillin Rash Current Medications Current Outpatient Medications on File Prior to Visit Medication Sig metoprolol succinate ER (TOPROL XL) 50 mg 24 hr tablet TAKE 1 TABLET BY MOUTH EVERY DAY amLODIPine (NORVASC) 10 mg tablet Take 1 tablet by mouth once daily. losartan (COZAAR) 100 mg tablet Take 1 tablet by mouth once daily. meloxicam (MOBIC) 15 mg tablet Take 1 tablet by mouth once daily. For joint pain, Take with food. phenazopyridine (PYRIDIUM) 200 mg tablet Take 1 tablet by mouth three times daily as needed. alendronate (FOSAMAX) 70 mg tablet Take 1 tablet by mouth one time a week. Take with a full glass of water, on an empty stomach; do NOT lie down for 30minutes. glimepiride (AMARYL) 1 mg tablet Take 2 tablets by mouth twice daily. TRUE METRIX GLUCOSE TEST STRIP test strip 1 Strip as directed. Test up to 4x daily. Chromium Picolinate 200 mcg tab Take 1 tablet by mouth once daily. CALCIUM CARBONATE/VITAMIN D2 (CALCIUM + VITAMIN D ORAL) Take by mouth once daily. MULTIVIT-MIN/IRON/FOLIC/LUTEIN (CENTRUM SILVER WOMEN ORAL) Take by mouth once daily. UBIDECARENONE (CO Q-10 ORAL) Take by mouth once daily. GLUCOSAMINE HCL/CHONDR BERNARD A NA (OSTEO BI-FLEX ORAL) Take by mouth once daily. Potassium 99 mg tab Take 1 tablet by mouth once daily. Takes occasionally No current facility-administered medications on file prior to visit. Social History Social History Tobacco Use Smoking status: Never Smokeless tobacco: Never Substance Use Topics Alcohol use: No Drug use: No Review of Symptoms REVIEW OF SYSTEMS See HPI, otherwise negative EXAM: BP 156/74 (BP Site: Left Arm, BP Position: Sitting, BP Cuff Size: Regular Adult) Pulse 77 Resp 16 Wt 65.7 kg (144 lb 12.8 oz) SpO2 96% BMI 25.25 kg/m? General Appearance: Well appearing, alert, in no acute distress, well-hydrated, well nourished.. Lungs: Lungs clear to auscultation. No wheezing, rhonchi, rales.. Heart: RRR without murmur, gallop, or rubs. No ectopy. Abdomen: Normal abdominal exam, Abdomen soft, non-tender. Bowel sounds normal. No masses, organomegaly. Health Maintenance List COVID-19 VACCINE(1) Never done PNEUMOCOCCAL: 65+(1 - PCV) Never done DTAP,TDAP,TD(1 - Tdap) Never done SHINGRIX VACCINE(1 of 2) Never done FECAL OCCULT BLOOD due on 05/01/2019 LDL CHOLESTEROL due on 12/02/2020 DEPRESSION ASSESSMENT due on 02/18/2022 URINE ALBUMIN:CREATININE RATIO due on 03/18/2022 INFLUENZA(1) due on 08/17/2022 HBA1C due on 05/31/2022 DILATED RETINAL EXAM due on 11/06/2022 DIABETIC FOOT EXAM due on 12/01/2022 BONE DENSITY Completed ADVANCE DIRECTIVE DISCUSSION Discontinued Data reviewed Previous records, office notes ASSESSMENT/PLAN: 1. Hypertension, essential - ICD9: 401.9, ICD10: I10 (primary diagnosis) - poor control - C (more content not included)... [facility] 05-14-2022 Instructions Kaushik Cortez APRN.CNP - 05/14/2022 11:18 AM EDT Increase your metoprolol to 100mg daily. Our goal for your blood pressure would be to get your top number down into the 130's consistently. Keep checking your blood pressures and you can go over them with Dr. Vega at your already scheduled appointment. Have your labs drawn and ask them to fax them over to us. documented in this encounter [facility] 05-14-2022 History of Present illness Narrative Chief Complaint Patient presents with: BP Check HPI Anahi Diallo is a 81 year old female who presents here today for Above Complaints.. Today: Last week got some deluxe mixed nuts and was eating these like crazy for about 3 days. Noticed the palms of her hands were itching-not on the skin but a deep itch. Her BP at that time was 189/87, stayed this high for several days. Since then has stayed away from salt as much as she can. Has had no caffeine for the past 3-4 days. Since then BP has come down a bit. This morning was 163/78 at 7am. Before she left for her appointment today was 137/65-had breakfast and BP pills at that point. Typically is a bit elevated at appointments. No CP, palpitations, SOB. Occasional headaches. Doesn't sleep well at night because has to get up 3 times to urinate and then can't fall back to sleep. Has been told by STATISTICAL TECHNICIAN that her pelvic organs are having low due to childbirth and age; this is why she is needing to urinate during the night so much. Recent UTI that she thinks has cleared, but would like to have her urine rechecked just in case. Past medical history, appointments, medications, allergies reviewed. Previous Medical History PAST MEDICAL HISTORY Diagnosis Date Hallux valgus, acquired 11/07/2009 HTN (hypertension) Nonrheumatic mitral valve regurgitation echo wnl Type 2 diabetes mellitus with complication (HCC) 04/05/2017 Type II or unspecified type diabetes mellitus without mention of complication, not stated as uncontrolled Previous Surgical History PAST SURGICAL HISTORY Procedure Laterality Date LAPAROSCOPY SURG CHOLECYSTECTOMY Cholecystectomy, lap PAST SURGICAL HISTORY OF D + C PAST SURGICAL HISTORY OF Gallbladder duct stones Family History FAMILY HISTORY Problem Relation Age of Onset Breast Cancer Mother Coronary Artery Disease Father Diabetes Son Kidney Disease Son Patient Allergies ALLERGIES Allergen Reactions Amoxicillin Rash Current Medications Current Outpatient Medications on File Prior to Visit Medication Sig metoprolol succinate ER (TOPROL XL) 50 mg 24 hr tablet TAKE 1 TABLET BY MOUTH EVERY DAY amLODIPine (NORVASC) 10 mg tablet Take 1 tablet by mouth once daily. losartan (COZAAR) 100 mg tablet Take 1 tablet by mouth once daily. meloxicam (MOBIC) 15 mg tablet Take 1 tablet by mouth once daily. For joint pain, Take with food. phenazopyridine (PYRIDIUM) 200 mg tablet Take 1 tablet by mouth three times daily as needed. alendronate (FOSAMAX) 70 mg tablet Take 1 tablet by mouth one time a week. Take with a full glass of water, on an empty stomach; do NOT lie down for 30minutes. glimepiride (AMARYL) 1 mg tablet Take 2 tablets by mouth twice daily. TRUE METRIX GLUCOSE TEST STRIP test strip 1 Strip as directed. Test up to 4x daily. Chromium Picolinate 200 mcg tab Take 1 tablet by mouth once daily. CALCIUM CARBONATE/VITAMIN D2 (CALCIUM + VITAMIN D ORAL) Take by mouth once daily. MULTIVIT-MIN/IRON/FOLIC/LUTEIN (CENTRUM SILVER WOMEN ORAL) Take by mouth once daily. UBIDECARENONE (CO Q-10 ORAL) Take by mouth once daily. GLUCOSAMINE HCL/CHONDR BERNARD A NA (OSTEO BI-FLEX ORAL) Take by mouth once daily. Potassium 99 mg tab Take 1 tablet by mouth once daily. Takes occasionally No current facility-administered medications on file prior to visit. Social History Social History Tobacco Use Smoking status: Never Smokeless tobacco: Never Substance Use Topics Alcohol use: No Drug use: No Review of Symptoms REVIEW OF SYSTEMS See HPI, otherwise negative EXAM: BP 156/74 (BP Site: Left Arm, BP Position: Sitting, BP Cuff Size: Regular Adult) Pulse 77 Resp 16 Wt 65.7 kg (144 lb 12.8 oz) SpO2 96% BMI 25.25 kg/m General Appearance: Well appearing, alert, in no acute distress, well-hydrated, well nourished.. Lungs: Lungs clear to auscultation. No wheezing, rhonchi, rales.. Heart: RRR without murmur, gallop, or rubs. No ectopy. Abdomen: Normal abdominal exam, Abdomen soft, non-tender. Bowel sounds normal. No masses, organomegaly. Health Maintenance List COVID-19 VACCINE(1) Never done PNEUMOCOCCAL: 65+(1 - PCV) Never done DTAP,TDAP,TD(1 - Tdap) Never done SHINGRIX VACCINE(1 of 2) Never done FECAL OCCULT BLOOD due on 05/01/2019 LDL CHOLESTEROL due on 12/02/2020 DEPRESSION ASSESSMENT due on 02/18/2022 URINE ALBUMIN:CREATININE RATIO due on 03/18/2022 INFLUENZA(1) due on 08/17/2022 HBA1C due on 05/31/2022 DILATED RETINAL EXAM due on 11/06/2022 DIABETIC FOOT EXAM due on 12/01/2022 BONE DENSITY Completed ADVANCE DIRECTIVE DISCUSSION Discontinued Data reviewed Previous records, office notes ASSESSMENT/PLAN: 1. Hypertension, essential - ICD9: 401.9, ICD10: I10 (primary diagnosis) - poor control - Continue current medication(s) - Increase metoprolol (Lopressor/Toprol) to 100mg daily. - Recommended regular aerobic exercise. - Recommend home blood pressure monitoring, to bring results in on next visit Has already scheduled with Dr. Vega for her yearly exam on 06/06. She will follow up with these concerns at that point. - Goal of BP <140/90 - VITAMIN B12 BLOOD - VITAMIN D 25 HYDROXY - COMP METABOLIC PANEL - LIPID PANEL BASIC 2. Type 2 diabetes mellitus without complication, without long-term current use of insulin (HCC) - ICD9: 250.00, ICD10: E11.9 - Continue current medication(s) - Increase metoprolol (Lopressor/Toprol) to 100mg daily. - Recommended regular aerobic exercise. - Recommend home blood pressure monitoring, to bring results in on next visit Has already scheduled with Dr. Vega for her yearly exam on 06/06. She will follow up with these concerns at that point. - COMP METABOLIC PANEL 3. Recurrent UTI (urinary tract infection) - ICD9: 599.0, ICD10: N39.0 recurrent - Patient education for prevention given UA negative - UA DIP, URINE (POC) - URINE CULTURE 4. Dyslipidemia - ICD9: 272.4, ICD10: E78.5 - LIPID PANEL BASIC 5. Vitamin D deficiency - ICD9: 268.9, ICD10: E55.9 - VITAMIN D 25 HYDROXY 6. Encounter for vitamin deficiency screening - ICD9: V77.99, ICD10: Z13.21 - VITAMIN B12 BLOOD - VITAMIN D 25 HYDROXY Kaushik Cortez APRN.[employer]USE[employer] documented in this encounter [facility] 04-30-2022 Miscellaneous Notes Patient phones requesting refills as follows: Requested Prescriptions Pending Prescriptions Disp Refills metoprolol succinate ER (TOPROL XL) 50 mg 24 hr tablet [Pharmacy Med Name: metoprolol succinate ER 50 mg tablet,extended release 24 hr] 90 tablet 1 Sig: TAKE 1 TABLET BY MOUTH EVERY DAY RACQUEL-12/06/21 Labs-04/27/22 NOV-06/06/22 med filled 11/08/21 Please review and advise. Alana Palacios LPN documented in this encounter [facility] 04-30-2022 Miscellaneous Notes Patient returned call and given provider's message below with verbalized understanding. Message left to return call. Please call patient and let her know that her urine culture shows signs of a UTI. Please have her start on rx as below Tahir Vega DO The following approved medication requests have been transmitted electronically. Requested Prescriptions Signed Prescriptions Disp Refills nitrofurantoin monohydrate and macrocrystal (MACROBID) 100 mg capsule 14 capsule 0 Sig: Take 1 capsule by mouth twice daily with meals for 7 days. Authorizing Provider: TAHIR VEGA DO documented in this encounter [facility] 04-27-2022 Miscellaneous Notes Patient notified. Mitzi Shelton RN Orders placed. If she needs anything further, she will need to make an appointment. Kaushik Cortez APRN.EUSEBIO Pt called in and reports she believes she has a UTI, states she urinating frequently and small amounts. Back ache also, but was adjusted at chiropractor a couple days ago. Pt had an at home Azo urine test that turns pink if you have a UTI and she said it is pink. Denies fever, nausea, abdominal pain, burning with urination or foul odor to urine. Pt asking if provider will order urine testing to be done at Lab as she has done before? Please advise. documented in this encounter [facility] 04-23-2022 Miscellaneous Notes Patient returned call and went over notes from Jodee Cortez MANAGER LABOR DELIVERY with understanding. Patient said she may want to do mamm every other year. Message left to return call. If she would like to stop getting them routinely, that is fine to do. It is recommend up to age 75, and further if the patient would receive tx should she develop a cancer after that age. Kaushik Cortez APRN.CUSTOMER SOLUTIONS SUPERVISOR Patient wants to know if she still needs to get a mammogram annually at her age. Please advise at [phone]. documented in this encounter [facility] 04-23-2022 Miscellaneous Notes Racquel--12/06/21 Nov--06/06/22 Last refill--12/06/21 90 with 1 refill Last labs--11/30/21 Patient has been identified by name and date of : Yes Requested Prescriptions Pending Prescriptions Disp Refills amLODIPine (NORVASC) 10 mg tablet 90 tablet 1 Sig: Take 1 tablet by mouth once daily. RX INSTRUCTIONS: Patient aware RX will be sent to pharmacy. No need to notify patient. Sonya Steele documented in this encounter [facility] 03-02-2022 History of Present illness Narrative Nail care Patient is a pleasant 81-year-old diabetic female who comes in to have her nails cut. States that they are very elongated thickened and cut. She has her diabetes managed by endocrinology. Physical Vascular pedal pulses palpable 2 out of 4, PT pulses are nonpalpable bilaterally. CFT is delayed with the foot and ankle edema. Derm: Skin is shiny dystrophic and avascular. Skin is warm to cool proximal to distal. Nails left 1 through 5 and right foot [id number] elongated thickened dystrophic crumbling Musculoskeletal: Muscle strength is 5/5 for tone. Can easily wiggle toes and clicking catching. Full subtalar is full. 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 Patient is at high risk nail care, therefore qualifies for nail care. Sharply debrided and debulked in height and length 10 onychodystrophy chart. Nail nippers consistent with a q8 modifier. F/u in 3 months for nail care. documented in this encounter [facility] 12-06-2021 History of Present illness Narrative Patient presents with: 6 Month Exam HPI: Anahi Diallo is a 81 year old female who presents to the office today for review of health conditions. 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 Not sure that she would like to pursue surgical intervention. Knows needs to be exercising more but not able to walk long distances, is considering starting her stationary bike for exercise again. Use of meloxicam with benefit as needed- not daily HTN, well controlled Ms. Diallo has past history of diabetes. Since our last visit she denies excessive thirst or increased frequency of urination, chest pain or dyspnea , new or unusual visual symptoms, and low sugar/hypoglycemic reactions. Depression- no. Follows a diabetic diet some of the time. She is compliant with medication(s) and is tolerating med(s) without any side effects. She reports checking her glucose on a once a day schedule with sugars in the fasting <160 range. Patient's last HgA1C was Hemoglobin A1C (%) Date Value 03/18/2021 6.8 12/04/2019 7.2 04/18/2019 7.3 ) Last Ophthalmology exam was within the past 12 months Ms. Diallo reports history of hyperlipidemia. Current therapy includes diet and exercise. Denies side effects of muscle weakness or achiness. Her most recent lipid panels are reviewed. Cholesterol, Total (mg/dL) Date Value 04/22/2018 164 Total Cholesterol, Nonfasting (mg/dL) Date Value 04/18/2019 153 HDL Cholesterol (mg/dL) Date Value 04/22/2018 55 HDL Cholesterol, Nonfasting (mg/dL) Date Value 04/18/2019 56 LDL Cholesterol (mg/dL) Date Value 04/22/2018 88 LDL Cholesterol, Nonfasting (mg/dL) Date Value 04/18/2019 81 LDL (no units) Date Value 12/03/2019 84 Triglyceride (mg/dL) Date Value 04/22/2018 103 Triglycerides, Nonfasting (mg/dL) Date Value 04/18/2019 78 Ms. Diallo indicates a history of hypertension and states that she is feeling well and denies any symptoms referable to elevated blood pressure. Specifically denies headache, chest pain, palpitations, dyspnea, and peripheral edema. Patient denies any side effects of her medication(s) and is compliant with their regimen. Last 3 Encounter BP Readings: Date: BP: 12/06/2021 138/72 07/18/2021 146/70 04/28/2021 138/68 She watches her diet for sodium, low fat and low cholesterol some of the time. She does not check BP's generally. Anahi gets minimal exercise. PAST MEDICAL HISTORY Diagnosis Date Hallux valgus, acquired 11/07/2009 HTN (hypertension) Nonrheumatic mitral valve regurgitation echo wnl Type 2 diabetes mellitus with complication (HCC) 04/05/2017 Type II or unspecified type diabetes mellitus without mention of complication, not stated as uncontrolled PAST SURGICAL HISTORY Procedure Laterality Date LAPAROSCOPY SURG CHOLECYSTECTOMY Cholecystectomy, lap PAST SURGICAL HISTORY OF D + C PAST SURGICAL HISTORY OF Gallbladder duct stones Social History Tobacco Use Smoking status: Never Smokeless tobacco: Never Substance Use Topics Alcohol use: No Drug use: No FAMILY HISTORY Problem Relation Age of Onset Breast Cancer Mother Coronary Artery Disease Father Diabetes Son Kidney Disease Son Allergies: ALLERGIES Allergen Reactions Amoxicillin Rash Current Meds: metoprolol succinate ER (TOPROL XL) 50 mg 24 hr tablet Take 1 tablet by mouth once daily. alendronate (FOSAMAX) 70 mg tablet Take 1 tablet by mouth one time a week. Take with a full glass of water, on an empty stomach; do NOT lie down for 30minutes. glimepiride (AMARYL) 1 mg tablet Take 2 tablets by mouth twice daily. TRUE METRIX GLUCOSE TEST STRIP test strip 1 Strip as directed. Test up to 4x daily. Chromium Picolinate 200 mcg tab Take 1 tablet by mouth once daily. Potassium 99 mg tab Take 1 tablet by mouth once daily. Takes occasionally MULTIVIT-MIN/IRON/FOLIC/LUTEIN (CENTRUM SILVER WOMEN ORAL) Take by mouth once daily. amLODIPine (NORVASC) 10 mg tablet Take 1 tablet by mouth once daily. losartan (COZAAR) 100 mg tablet Take 1 tablet by mouth once daily. meloxicam (MOBIC) 15 mg tablet Take 1 tablet by mouth once daily. For joint pain, Take with food. phenazopyridine (PYRIDIUM) 200 mg tablet Take 1 tablet by mouth three times daily as needed. CALCIUM CARBONATE/VITAMIN D2 (CALCIUM + VITAMIN D ORAL) Take by mouth once daily. UBIDECARENONE (CO Q-10 ORAL) Take by mouth once daily. GLUCOSAMINE HCL/CHONDR BERNARD A NA (OSTEO BI-FLEX ORAL) Take by mouth once daily. Review of Systems: The remainder of the review of systems is negative. PE: 12/06/21 0904 BP: 138/72 Pulse: 68 Resp: 16 Temp: 36.7 C (98 F) TempSrc: Right Tympanic Weight: 64.9 kg (143 lb) Gen: A&O, NAD, non-toxic appearing, Pleasant, cooperative HEENT: NT/AC, PERRLA, EOMs intact b/l, nares clear and patent b/l, pharynx without erythema, exudate or lesions. Uvula midline. Hard of hearing, wearing glasses. Neck: supple, No cervical LAD, no thyromegaly, no carotid bruits CV: RRR, normal S1 and S2, no murmurs, no gallops, no rubs, Pulses 2+ and symmetric in UE and LE b/l Lungs: normal respiratory effort, CTA b/l, no wheezing or rhonchi or rales Abd: soft, NT, ND, +BS, no hepatosplenomegaly MS: reduced ROM joints peripheral hands and feet and knees and spine Neuro: CN II-XII intact b/l Skin: warm, dry, intact, No rashes or lesions on exposed skin. Foot exam: arthritis and tendinitis changes No edema legs Gait is slowed/antalgic ASSESSMENT/PLAN: 1. Hypertension, essential - ICD9: 401.9, ICD10: I10 (primary diagnosis) - good control - Continue current medication(s) - Encouraged dietary sodium restriction/DASH diet - Recommended regular aerobic exercise. - Recommend home blood pressure monitoring, to bring results in on next visit - Goal of BP <130/80 - AMLODIPINE 10 MG TABLET - LOSARTAN 100 MG TABLET - VITAMIN B12 BLOOD 2. Type 2 diabetes mellitus without complication, without long-term current use of insulin (HCC) - ICD9: 250.00, ICD10: E11.9 worsening control Poor adherence to plan of care. - Continue current medications - Blood glucose monitoring on a once a day schedule - Encouraged regular aerobic exercise and weight loss - VITAMIN B12 BLOOD 3. Age-related osteoporosis without current pathological fracture - ICD9: 733.01, ICD10: M81.0 - Reviewed the need for Calcium and Vitamin D supplements and weight bearing exercise as tolerated - VITAMIN B12 BLOOD 4. Dyslipidemia - ICD9: 272.4, ICD10: E78.5 - suboptimal control - Encouraged following a low fat, low cholesterol diet. - Discussed the benefits of regular aerobic exercise and weight loss. - LIPID PANEL BASIC - COMP METABOLIC PANEL 5. Vitamin D deficiency - ICD9: 268.9, ICD10: E55.9 - continue supplement - VITAMIN D 25 HYDROXY 6. Arthritis, multiple joint involvement - ICD9: 716.99, ICD10: M12.9 - okay for prn not daily use of meloxicam, normal renal function labs Tahir Vega DO To ER if develops chest pain, shortness of breath, or severe worsening of symptoms. Discussed risks, benefits, alternatives, and potential side effects of medications. Patient expressed understanding and agreed with the plan. Tahir Vega DO [address] [place] [address] documented in this encounter [facility] 12-05-2021 Miscellaneous Notes Results in Care Everywhere. Sonya Courtney LPN Patient calls and states that she had labs done at [facility] last week. Patient has an appointment with Dr. Vega tomorrow 12/06/2021 and patient was calling to make sure that provider had labs results before appointment. Lucía Marie RN documented in this encounter [facility] 11-06-2021 Miscellaneous Notes Last office visit: 04/28/21 F/u scheduled: 12/06/21 Judy Ortega Ma Patient has been identified by name and date of : Yes Requested Prescriptions Pending Prescriptions Disp Refills metoprolol succinate ER (TOPROL XL) 50 mg 24 hr tablet 90 tablet 1 Sig: Take 1 tablet by mouth once daily. RX INSTRUCTIONS: Patient aware RX will be sent to pharmacy. No need to notify patient. Isabell Dotson documented in this encounter [facility] 09-08-2021 History of Present illness Narrative Right ankle pain, nail care. Patient is a pleasant 80-year-old female who comes in today following up on medial right ankle pain. She states that she tried getting air into her Hanny brace however it is very hard uncomfortable and sore. She wore a couple days it but is worried that it is making her pain even worse. She did some shopping 1 day and had to stop pause and add some ice. Additionally comes in to have her nails cut. Her diabetes is managed by primary including Dr. Vega. A1c is below 7% and generally well controlled. Physical Vascular: DP pulses are palpable. PT pulses nonpalpable due to edema. CFT is delayed with right ankle edema. Derm: Skin is shiny atrophic. Nails left [id number] and right foot 60274 are elongated thickened mycotic crumbling and dystrophic. Musculoskeletal: Still with pain across the posterior tibial complex otherwise ankle subtalar full and pain-free. Can easily wiggle toes. 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 -Regarding her right ankle, did again review her MRI consistent with 2.5 cm of longitudinal tearing of the PT tendon. She is additionally with onychodystrophy and arterial disease elevating her limb loss risk score qualify her for nail care. -Regarding her PT tendon, did add oral meloxicam 15 mg once daily for 14 days 14 tabs 0 refills. Depending on how she does could consider again a primary repair. Did recommend she go back to see [email or web address] to have her AFO adjusted as it is still is the gold standard for conservative therapy just needs to add more padding protection. Nail care: After timeout consent was performed, sharply debrided and debulked in height and length 10 onychomycotic nails with a sharp around nail nipper consistent with a q8 modifier. Follow-up in 3 months for foot nail care Low medical complexity decision making based posterior tibial tendon dysfunction separate than her nail care. documented in this encounter [facility] 08-30-2021 Miscellaneous Notes Patient has been identified by name and date of : Yes Patient phones for refill(s): Pending Prescriptions Disp Refills AMLODIPINE 10 MG TABLET 30 tablet 2 Sig: Take 1 tablet by mouth once daily. CALVIN: No Date of last office visit in primary care: 04/28/21 Future visit: 10/24/21 Last 2 Encounter Wt Readings: Date: Wt: 07/18/2021 66.6 kg (146 lb 12.8 oz) 04/28/2021 64.9 kg (143 lb) Previous labs/tests for medication: Blood Pressure: BUN (mg/dL) Date Value 03/18/2021 15 Sodium (mmol/L) Date Value 03/18/2021 134 Last 1 Encounter BP Readings: Date: BP: 07/18/2021 146/70 Please advise. Thank you. Vannesa Cortez RN documented in this encounter [facility] 08-03-2021 Miscellaneous Notes Patient notified. Please inform patient that her urine culture is normal. No UTI She did have glucose in her urine, which is likely contributing to her symptoms Tahir Vega DO documented in this encounter [facility] 08-01-2021 Miscellaneous Notes Pt called and is notified of providers message and instructions. Pt voices understanding, and states she will come in to give samples. Vannesa Cortez RN The ciprofloxacin should have treated the UTI. I would like her to give another urine culture sample Tahir Vega DO Patient calling she was treated for UTI at urgent care on 07/20 she was put on cipro rx. Patient finished the rx on today said she has all the symptoms back. She is voiding frequently, burning, just feels miserable. Patient is asking if she should have more antibiotic rx? Patient uses [facility] for her pharmacy. Patient does not want to come back to urgent care unless she has to. Please advise documented in this encounter [facility] 07-20-2021 Miscellaneous Notes Patient returned phone call and stated that there is no [facility] pharmacy [place], asking for OTC med to help until her return. I asked her if there was any other pharmacy close to her so that we could call in a prescription for atb so she could have it transferred. Patient then declined stating she does not know the area they are in and will just let it go until she gets home and can get script at [facility] in [place] . Margaret Saini MA Patient identified by name and date of . Rx for Cipro sent to [facility] in [place]. Patient is currently in [place]. She is advised to call [place] [facility] and ask them to transfer RX to a [facility] near her location. Leona Sampson APRN.EUSEBIO documented in this encounter [facility] 07-18-2021 History of Present illness Narrative This note was created using [employer]. Subjective Anahi Diallo is a 80 year old female. 80 year old female with PMH of DM, HTN, & re-current UTI's presents with c/o urgency & frequency with urination Onset a couple of weeks States Elyssa been neglecting myself lately and I think I have a UTI frequency and urgency with urination Denies odor, burning, pain, fever/chills, N,V,D, rash/lesions Utilized cranberry pills with no relief States she is going on vacation tomorrow and may need some medication for her trip. UTI This is a recurrent problem. The current episode started more than 1 week ago. The problem occurs every urination. The problem has not changed since onset.Quality: Denies. The pain is at a severity of 0/10. The patient is experiencing no pain. There has been no fever. She is sexually active. There is no history of pyelonephritis. Associated symptoms include frequency and urgency. Pertinent negatives include no chills, no sweats, no nausea, no vomiting, no discharge, no hematuria, no hesitancy, no possible and no flank pain. Treatments tried: OTC cranberry pills. Her past medical history is significant for recurrent UTIs. Her past medical history does not include kidney stones, single kidney, urological procedure, urinary stasis or catheterization. PAST MEDICAL HISTORY Diagnosis Date Hallux valgus, acquired 11/07/2009 HTN (hypertension) Nonrheumatic mitral valve regurgitation echo wnl Type 2 diabetes mellitus with complication (HCC) 04/05/2017 Type II or unspecified type diabetes mellitus without mention of complication, not stated as uncontrolled PAST SURGICAL HISTORY Procedure Laterality Date LAPAROSCOPY SURG CHOLECYSTECTOMY Cholecystectomy, lap PAST SURGICAL HISTORY OF D + C PAST SURGICAL HISTORY OF Gallbladder duct stones ALLERGIES Amoxicillin MEDICATIONS losartan (COZAAR) 100 mg tablet Take 1 tablet by mouth once daily. amLODIPine (NORVASC) 10 mg tablet Take 1 tablet by mouth once daily. alendronate (FOSAMAX) 70 mg tablet Take 1 tablet by mouth one time a week. Take with a full glass of water, on an empty stomach; do NOT lie down for 30minutes. meloxicam (MOBIC) 15 mg tablet Take 1 tablet by mouth once daily. glimepiride (AMARYL) 1 mg tablet Take 2 tablets by mouth twice daily. TRUE METRIX GLUCOSE TEST STRIP test strip 1 Strip as directed. Test up to 4x daily. Chromium Picolinate 200 mcg tab Take 1 tablet by mouth once daily. Potassium 99 mg tab Take 1 tablet by mouth once daily. Takes occasionally CALCIUM CARBONATE/VITAMIN D2 (CALCIUM + VITAMIN D ORAL) Take by mouth once daily. UBIDECARENONE (CO Q-10 ORAL) Take by mouth once daily. GLUCOSAMINE HCL/CHONDR BERNARD A NA (OSTEO BI-FLEX ORAL) Take by mouth once daily. phenazopyridine (PYRIDIUM) 200 mg tablet Take 1 tablet by mouth three times daily as needed. metoprolol succinate ER (TOPROL XL) 50 mg 24 hr tablet Take 1 tablet by mouth once daily. MULTIVIT-MIN/IRON/FOLIC/LUTEIN (CENTRUM SILVER WOMEN ORAL) Take by mouth once daily. FAMILY HISTORY Problem Relation Age of Onset Breast Cancer Mother Coronary Artery Disease Father Diabetes Son Kidney Disease Son Social History Tobacco Use Smoking status: Never Smoker Smokeless tobacco: Never Used Substance Use Topics Alcohol use: No Drug use: No Review of Systems Constitutional: Negative for activity change, appetite change, chills, fatigue and fever. HENT: Negative for congestion, ear pain, postnasal drip, rhinorrhea, sinus pressure and sore throat. Eyes: Negative for pain, discharge, redness and itching. Respiratory: Negative for apnea, cough, chest tightness and shortness of breath. Cardiovascular: Negative for chest pain. Gastrointestinal: Negative for abdominal distention, abdominal pain, constipation, diarrhea, nausea and vomiting. Endocrine: Negative for cold intolerance, heat intolerance, polydipsia, polyphagia and polyuria. Genitourinary: Positive for frequency and urgency. Negative for decreased urine volume, difficulty urinating, dyspareunia, dysuria, flank pain, hematuria, hesitancy, vaginal bleeding, vaginal discharge and vaginal pain. Musculoskeletal: Positive for back pain (chronic). Negative for arthralgias. Chronic. Sees a chiropractor on a regular basis Skin: Negative for color change, pallor, rash and wound. Allergic/Immunologic: Negative for environmental allergies, food allergies and immunocompromised state. Neurological: Negative for dizziness and headaches. Psychiatric/Behavioral: Negative for agitation, behavioral problems and confusion. Objective BP 146/70 Pulse 89 Temp 37 C (98.6 F) Resp 18 Wt 66.6 kg (146 lb 12.8 oz) SpO2 98% BMI 25.60 kg/m Physical Exam Vitals and nursing note reviewed. Constitutional: General: She is not in acute distress. Appearance: Normal appearance. She is normal weight. She is not ill-appearing, toxic-appearing or diaphoretic. HENT: Head: Normocephalic. Right Ear: Tympanic membrane, ear canal and external ear normal. There is no impacted cerumen. Left Ear: Tympanic membrane, ear canal and external ear normal. There is no impacted cerumen. Nose: Nose normal. No congestion or rhinorrhea. Mouth/Throat: Mouth: Mucous membranes are moist. Pharynx: No oropharyngeal exudate or posterior oropharyngeal erythema. Eyes: General: No scleral icterus. Right eye: No discharge. Left eye: No discharge. Extraocular Movements: Extraocular movements intact. Conjunctiva/sclera: Conjunctivae normal. Pupils: Pupils are equal, round, and reactive to light. Cardiovascular: Rate and Rhythm: Normal rate. Pulses: Normal pulses. Heart sounds: Normal heart sounds. No murmur heard. No gallop. Pulmonary: Effort: Pulmonary effort is normal. No respiratory distress. Breath sounds: Normal breath sounds. No wheezing. Chest: Chest wall: No tenderness. Abdominal: General: Abdomen is flat. Bowel sounds are normal. There is no distension. Palpations: Abdomen is soft. There is no mass. Tenderness: There is no abdominal tenderness. There is no right CVA tenderness, left CVA tenderness, guarding or rebound. Hernia: No hernia is present. Genitourinary: Comments: Urine POC completed. Small ALIZE seen. Negative for blood, NIT, GLU, GURPREET. Musculoskeletal: General: No swelling, tenderness, deformity or signs of injury. Normal range of motion. Cervical back: Normal range of motion. No rigidity or tenderness. Right lower leg: No edema. Left lower leg: No edema. Skin: General: Skin is warm and dry. Capillary Refill: Capillary refill takes less than 2 seconds. Coloration: Skin is not pale. Findings: No erythema, lesion or rash. Neurological: General: No focal deficit present. Mental Status: She is alert and oriented to person, place, and time. Motor: No weakness. Psychiatric: Mood and Affect: Mood normal. Behavior: Behavior normal. Thought Content: Thought content normal. Judgment: Judgment normal. Assessment and Plan ASSESSMENT/PLAN: 1. Urgency of urination - ICD9: 788.63, ICD10: R39.15 (primary diagnosis) - URINE CULTURE 2. Urinary frequency - ICD9: 788.41, ICD10: R35.0 Recurrent X 2 weeks Urine dip shows trace leuks, otherwise negative. - Send urine for culture and will hold off on treatment. - Patient education for UTI prevention given - URINE CULTURE Urinary health education given. Pt will start Pyridium 200 mg today F/U if symptoms get worse or fever develops No red flags noted Blanca Ellsworth TEACHING PROVIDER (Physician/PA/SIGNAL MAINTAINER HELPER) NOTE OF PERSONAL INVOLVEMENT IN CARE: I have personally seen and examined the patient and performed the medical decision-making components. I have reviewed the Advanced Practice Registered Nurse (SIGNAL MAINTAINER HELPER) Student's documentation and verified the findings in the note as written. Any additions or changes are noted in bold/italics. Signature: Caroline Preston Date: 07/18/2021 Time: 10:47 AM documented in this encounter [facility] 07-18-2021 Instructions Caroline Preston APRN.CNP - 07/18/2021 10:13 AM EDT Stress Urinary Incontinence Leakage caused by weak pelvic floor muscles, urethral sphincter, and poor urethral support. Leakage often occurs from coughing, sneezing, or exercise. Treatment Options Observation Non-surgical Kegels/Pelvic Floor Muscle Exercises (w/o or w/ P.T.) Vaginal devices Tampons- can insert at the opening to put pressure on the urethra Pessary- device specifically made to put pressure on the urethra. Inserted vaginally and usually removed nightly. Weight loss Medication Cymbalta (off label use)- Works by increasing urethral tone but has several side effects. 3. Surgical Injectables/Bulking Agents(Silicone beads) Least invasive Moderate Improvement mid May need 1-3 injections and may need boosters every several years Mid-urethral slings Permanent synthetic mesh 90% improvement 50-60% dry rate 10% failure 1-3% mesh exposure/erosion 5% difficulty urinating 5-10% new urge problems Urge problems: 40-60% improve 40-60% same/worse FDA advisory(old) [facility] Hospital -Outpatient Recovery -No driving for 3 days -No lifting >10 pounds for 2 weeks -Limited activities for 4 weeks -Pelvic Rest for 6 weeks WEBSITES: www.voidesforpfd.org www.nafc.org To decrease your UTIs (bladder infections) be sure to: -Wipe from front to back -If you wear pads for urine leakage, make sure to change your pad once wet -Drink plenty of fluid, especially water and urinate frequently -Urinate after intercourse -High dose cranberry tablets: [facility] brand or [employer] ([employer]) -D-mannose -Probiotics -Vaginal estrogen if after menopause -Antibiotic prophylaxis -Hiprex- medicine that converts to formaldehye in urine. Take with Vitamin C -Low dose nitrofurantoin (antibiotic) documented in this encounter [facility] 07-11-2021 Miscellaneous Notes Last office visit: 04/28/21 F/u scheduled: 10/24/21 Judy Ortega Ma Patient has been identified by name and date of : Yes Pending Prescriptions Disp Refills LOSARTAN 100 MG TABLET 90 tablet 1 Sig: Take 1 tablet by mouth once daily. CALVIN: No RX INSTRUCTIONS: Patient aware RX will be sent to pharmacy. No need to notify patient. Isabell Dotson documented in this encounter [facility] 06-19-2021 Miscellaneous Notes TC to patient who states she received below results last week. Patient verbalizes understanding of providers message. No questions at this time. LEXA Benz TC to patient with no answer. Left message to return call and ask to speak with a nurse regarding results. LEXA Benz Please inform patient that her urine culture is negative., no signs of UTI Tahir Vega DO documented in this encounter [facility] 06-15-2021 Miscellaneous Notes Patient notified of results and provider's instructions. Patient verbalizes understanding. Lucía Marie RN vm left with patient to contact office for results Claudia Daley Ma Please let patient know that UA and urine culture are negative for any bacteria or signs of infection. No antibiotic is needed. Orders placed to have done prior to appointment in Oct. Dilcia Campos APRN.EUSEBIO Pt calling for results of her urine culture. Pt uses [facility] [place] if needed. Pt also requesting to schedule 6 month f/u at this time. Appointment scheduled for 10/24/21. Pt would like to have lab orders placed to do prior to appointment. Ok to leave vm for pt if needed.Beena Doss LPN documented in this encounter [facility] 06-12-2021 Miscellaneous Notes Pt informed and verbalized understanding Claudia Daley Ma Orders signed. Dilcia Campos APRN.EUSEBIO Patient calls to report that she has started with urinary symptoms again (backache, headache, urgency). Afebrile (98.1). Patient reports she did an ASO Home Test Strip which is positive for UTI. Patient asking if provider would put in an order for UA C&S. Orders pended. Arlene Cohw RN documented in this encounter [facility] 06-09-2021 History of Present illness Narrative Right ankle pain and nail care. Patient is a pleasant 80-year-old female who comes in today primarily complaining today of right ankle pain. She states that her ankle really has not improved in the last year year. She states she does not really remember a exact injury but does thinks that she tweaked it at 1 point. She went to an orthopedic group out of [facility] and states that she underwent an MRI. They put her in a boot but she did not improve wonders what her options could be. Additional wearing her cam boot she states that it felt like she was wearing a brick on her leg and she was not able to walk in addition was getting hip and back pain. Addition comes in today for nail care. Her geriatric is managed by primary including Dr. Vega, date of last service is August 02, 2021. Last known A1c 6.8%. Physical Vascular: DP pulses are palpable 2 bilaterally. PT pulses are nonpalpable. CFT is delayed mild foot and ankle edema. Right ankle is substantially worse than left especially posteriorly. Hair growth absent. Feet are warm to cool proximal to distal. Neuro: Light touch is normal Babinski's is normal. Musculoskeletal: Muscle strength is 5/5 tone. Can easily wiggle toes without any clicking or catching. Does have pain across the posterior tibial tendon with pes planovalgus foot type and subsubtalar joint eversion. Ankle is full without pain or catching. Nails left [id number] and right foot [id number] are markedly elongated and mycotic crumbling and dystrophic. MRI from [place] reviewed and she is with 2 and half centimeters of linear intratendinous tearing substantial inflammation. Additionally midfoot osteoarthritis. Assessment and plan Patient is a pleasant 80-year-old female with linear posterior tendon tearing as seen on MRI, arterial disease and onychomycosis. -Reviewed her MRI in today with her. -Based on outcome, she likely would benefit a primary [id number] anastomosis to repair the posterior tibial tendon is not interested in surgical intervention. -Therefore as a backup option, did prescribe her an elbow brace to protect her ankle. -Would like to see how she does brace for the next year 1 year. If doing no better by fall likely will need a primary repair plus or minus an ankle arthroscopy for washout. Additionally she does qualify for nail care. Sharply debrided and debulked in height and length 10 onychomycotic nails with a sharp nail nippers consistent with a q8 modifier. Low medical complexity decision making based on review of imaging. documented in this encounter [facility] 06-09-2021 History of Present illness Narrative Images from the original note were not included. Patient ID: Anahi Diallo is a 80 y.o. female 1940 Subjective: Anahi Diallo presents for follow-up of Type 2 diabetes Patient has had diabetes for 28 years. Diagnosed in 1992 Outpatient Medications Marked as Taking for the 06/09/21 encounter (Office Visit) with Reggie Son CUSTOMER SOLUTIONS SUPERVISOR: alendronate (FOSAMAX) 70 MG tablet, Take 1 tablet by mouth one time a week. Take with a full glass of water, on an empty stomach; do NOT lie down for 30minutes. amLODIPine (NORVASC) 10 MG tablet, Take 10 mg by mouth daily . blood sugar diagnostic (True Metrix Glucose Test Strip) strips, TEST BLOOD SUGAR DIRECTED 4 x DAILY. E11.9 . blood-glucose meter kit, use as directed to check BG 4x daily DX code E11.9 ( True Metrix Air Meter) . chromium picolinate 200 mcg Tab, Take 2 tablets by mouth 2 (two) times a day . coenzyme Q10 10 mg capsule, Take 10 mg by mouth daily . cranberry fruit concentrate (AZO CRANBERRY ORAL), Take 2 capsules by mouth 2 (two) times a day . glimepiride (AMARYL) 1 MG tablet, Take 2 tablets QID (8 mg daily) . glucosamine-chondroitin 250-200 mg Tab, Take 1 tablet by mouth 2 (two) times a day . GNP LANCING DEVICE [facility], USE TO CHECK BLOOD GLUCOSE 4 TIMES A DAY losartan (COZAAR) 100 MG tablet, Take 100 mg by mouth every morning. metoprolol tartrate (LOPRESSOR) 25 MG tablet, Take 25 mg by mouth every evening. multivitamin (THERAGRAN) per tablet, take 1 tablet by oral route every day with food. Review of Systems: Review of Systems Constitutional: Positive for unexpected weight change (weight has decreased 7 lbs in last 6 months ). Negative for fatigue. Eyes: Negative for visual disturbance. Respiratory: Negative for cough and shortness of breath. Cardiovascular: Negative for chest pain and leg swelling. Gastrointestinal: Negative for abdominal pain, constipation, diarrhea, nausea and vomiting. Endocrine: Negative for polydipsia, polyphagia and polyuria. Genitourinary: Negative for frequency and urgency. Skin: Negative for wound. Neurological: Positive for numbness (pain in feet). Psychiatric/Behavioral: Negative for sleep disturbance. The patient is not nervous/anxious. The following portions of the patient's history were reviewed and updated as appropriate: allergies, current medications, past family history, past medical history, past social history, past surgical history and problem list. Objective: There were no vitals taken for this visit. Wt Readings from Last 3 Encounters: 12/23/20 63.5 kg (140 lb) 12/10/20 64 kg (141 lb) 12/09/20 64 kg (141 lb 3.2 oz) Physical Exam: General: alert, appears stated age and cooperative Eyes: conjunctivae/corneas clear. PERRL, EOM's intact. Neck: no adenopathy, supple, symmetrical, trachea midline. Thyroid: No thyromegaly appreciated Lung: clear to auscultation bilaterally Heart: regular rate and rhythm, S1, S2 normal, no murmur, click, rub or gallop Extremities: extremities normal, atraumatic, no cyanosis or edema Feet: Dry skin, Bilateral Feet: warm, good capillary refill, normal DP, onychomycosis, calluses and venous stasis dermatitis noted. Monofilament exam not assessed, bilateral lower extremities. Neuro: normal without focal findings, mental status, speech normal, alert and oriented x3 and TUAN Laboratory Review: BP (!) 165/75 Pulse 75 Wt 66.2 kg (145 lb 14.4 oz) BMI 25.04 kg/m Lab Results Component Value Date HGBA1C 6.9 (H) 12/05/2020 Glucose (mg/dL) Date Value 12/05/2020 140 (H) Creatinine (mg/dL) Date Value 12/05/2020 0.79 04/18/2019 0.67 Lab Results Component Value Date CHOL 170 12/05/2020 TRIG 81 12/05/2020 HDL 65 12/05/2020 LDLCALC 89 12/05/2020 Lab Results Component Value Date TSH 1.52 12/05/2020 Lab Results Component Value Date WBC 6.32 12/05/2020 HGB 13.9 12/05/2020 HCT 41.1 12/05/2020 MCV 93.4 12/05/2020 PLT 313 12/05/2020 Date: 03/18/21 *labs reviewed 06/09/21 Hgb A1c: 6.8% Creat: 0.67; eGFR: >60 AST: 15; ALT: 16 K: 4.9 CBC: WBC:9.87; Hgb: 13.1; Hct: 40.0; Plt: 347 25-OH Vitamin D: 82.7 12/05/20 Hgb A1c: 6.9% Creat: 0.79; eGFR: 70 AST: 15; ALT: 23 K: 4.5 CBC: WBC:6.32; Hgb: 13.9; Hct: 41.1; Plt: 313 Tchol: 170; Tri ; HDL: 65 ; LDL: 89 TSH: 1.52 ; FreeT4: 1.0 Microalbumin/creatinine Ratio: 06/02/20 Hgb A1c: 7.0% Creat: 0.82; eGFR: 68 AST: 16; ALT: 28 K: 4.2 CBC: WBC:6.90; Hgb: 13.2; Hct: 39.2; Plt: 319 Microalbumin/creatinine Ratio: 7 25-OH Vitamin D: 72 12/03/19 Hgb A1c: 7.2% Creat: 0.80; eGFR: 70 AST: 19; ALT: 25 K: 4.5 CBC: WBC:6.94; Hgb: 13.1; Hct: 39.7; Plt: 287 Tchol: 162; Tri ; HDL: 51 ; LDL: 84 TSH: 1.73 ; FreeT4: 1.0 Microalbumin/creatinine Ratio: 9 04/18/19 Hgb A1c: 7.3% Creat: 0.67; eGFR: >60 AST: 20; ALT: 14 K: 4.3 CBC: WBC: 7.32; Hgb: 13.3; Hct: 39; Plt: 293. Tchol: 153; Tri ; HDL: 56 ; LDL: 81 11/25/18 Hgb A1c: 6.7% Creat: 0.78; eGFR: 73 AST: 14; ALT: 21 K: 4.4 CBC: WBC:6.10; Hgb: 13.4; Hct: 40.0; Plt: 313 Tchol: 158; Tri ; HDL: 52 ; LDL: 77 TSH: 1.89 ; FreeT4: 0.9 Microalbumin/creatinine Ratio: 18 04/22/18 Hgb A1c: 6.7 Creat: 0.67; eGFR: >60 K: 4.5 Tchol: 164; Tri ; HDL: 55 ; LDL: 88 Assessment/Plan: Dx: 1. Type II diabetes mellitus with neurological manifestations (HCC) 2. Essential hypertension Type 2 diabetes, under good control Currently taking: Glimepiride 2 mg three times daily with meals and extra 1/2-3 tablet at bedtime if BG >200. Current Hemoglobin A1C= 6.8% 03/11 Lab Results Component Value Date HGBA1C 6.9 (H) 12/05/2020 HGBA1C 7.0 (H) 06/02/2020 HGBA1C 7.2 (H) 12/03/2019 Weight trend: has decreased 3 lbs. Current diet: carb controlled Current exercise: active Current monitoring regimen: home blood tests - 4 times daily Home blood sugar records: Fasting B-127 Pre-lunch B-147 Pre-supper B-252 Bedtime B-226 Any episodes of hypoglycemia? yes - infrequently NOTES: Patient doing well with Hgb A1c 6.8% 03/11. Currently taking 1.5-2 mg BID-TID at meals. PLAN: See below Retinopathy: Negative Exam within last 12 months: yes Date: 10/08 Contract Designer/Hopper Attendant: Dr. Hobson Other Ophthalmologic Conditions: None known Nephropathy: Negative Creat: 0.67 03/11. Lab Results Component Value Date CREATININE 0.79 12/05/2020 EXTEGFR >=60 11/06/2017 EXTEGFRAFAME >=60 11/06/2017 Microlbumin/creat ratio: Lab Results Component Value Date EXTMICROALBC 8 11/07/2016 Is patient on TRAVIS inhibitor or angiotensin II receptor yan? yes Losartan Peripheral Neuropathy: Negative Denies symptoms associated with neuropathy (numbness and/or tingling) Autonomic Neuropathy: Negative Hypoglycemia unawareness. Senses low BG at <100mg/dl. Other: Hyperlipidemia: Positive Currently taking: No lipid lowering agents. Lipids and LFT's WNL Lab Results Component Value Date AST 15 12/05/2020 ALT 23 12/05/2020 Lab Results Component Value Date EXTCHOL 153 04/18/2019 EXTTRIG 78 04/18/2019 EXTHDL 56 04/18/2019 EXTLDLCALC 81 04/18/2019 Hypertension: Positive. Currently taking: losartan (Cozaar) BP: (!) 165/75 Patient instructed to monitor Bp at home, patient to notify PCP if remains elevated or runs higher. Cardiac: Negative Experiencing chest pain No . Experiencing shortness of breath No History of No history of CAD Vascular: Negative History of None Feet: Last foot exam: 06/09/21 Follows with Podiatry: Yes Apparatus Lineman: Dr. Cantu History of foot ulceration: No History of amputation: No Left foot with two tendon tears and stress fracture 2018, wears braces off and on. Foot pain continues. Has had X-rays and MRI that revealed bone spurs. Reports continuous pain. Thyroid: Lab Results Component Value Date TSH 1.52 12/05/2020 Negative Other: Plan: 1. Rx changes: Continue current regimen Glimepiride 1.5-2 mg three times daily with 0.5-2 mg at HS if necessary. 2. Education: Reviewed ABCs of diabetes management (respective goals in parentheses): A1C (7.0-8.0), blood pressure (<130/80), and cholesterol (LDL <100). 3. Compliance at present is estimated to be excellent. Efforts to improve compliance (if necessary) will be directed at increased exercise. Also, will be directed at dietary modifications: Limit starches, carbohydrates and concentrated sugar sources 4. Follow up: 6 months 5. Record blood sugar readings as instructed. Call if BG consistently <70 or >250. [phone] Patient has been checking blood glucoses 3-4 times daily for the past 90 days. Patient needs to continue checking blood glucoses 3-4 times daily. Blood glucose readings are used to adjust medication or insulin doses for meals, monitor dietary compliance, and adjust for high or low blood glucoses by patient on a daily basis. Blood glucose readings are reviewed at office visits for adjustment in medication regimen and assistance with dietary management, and other self-management issues including exercise, etc. Prognosis: Good. Duration of need for diabetes testing equipment: Permanent #150 strips/month prescribed. 6. Bring blood sugar meter to follow up appointment. Orders Placed This Encounter Procedures Comprehensive Metabolic Panel Hemoglobin A1c Lipid Panel Microalbumin/Creatinine Ratio, UR Random TSH T4, Free CBC and Differential documented in this encounter [facility] 05-31-2021 Miscellaneous Notes RACQUEL 04/28/21 NOV not scheduled at this time Claudia Daley Ma Patient has been identified by name and date of : Yes Pending Prescriptions Disp Refills AMLODIPINE 10 MG TABLET 30 tablet 2 Sig: Take 1 tablet by mouth once daily. CALVIN: No RX INSTRUCTIONS: Patient aware RX will be sent to pharmacy. No need to notify patient. Evangelina Yang documented in this encounter [facility] 01-31-2021 History of Present illness Narrative Patient was measured today for her shoes style DRC VIGOR BLACK 8.5WIDE documented in this encounter [facility] 06-06-2020 History of Present illness Narrative Patient ID: Anahi Diallo is a 79 y.o. female 1940 Subjective: Anahi Diallo presents for follow-up of Type 2 diabetes Patient has had diabetes for 28 years. Diagnosed in 1992 Outpatient Medications Marked as Taking for the 06/06/20 encounter (Office Visit) with Reggie Son CNP: blood sugar diagnostic (True Metrix Glucose Test Strip) strips, TEST BLOOD SUGAR DIRECTED 4 x DAILY. E11.9 . blood-glucose meter kit, use as directed to check BG 4x daily DX code E11.9 ( True Metrix Air Meter) . calcium citrate-vitamin D (CITRACAL+D) 315-200 mg-unit per tablet, take 2 Tablet by Oral route every day. cholecalciferol, vitamin D3, (VITAMIN D3 ORAL), Take 4-6 tablets by mouth daily . chromium picolinate 200 mcg Tab, Take 2 tablets by mouth 2 (two) times a day . coenzyme Q10 10 mg capsule, Take 10 mg by mouth daily . cranberry fruit concentrate (AZO CRANBERRY ORAL), Take 2 capsules by mouth 2 (two) times a day . glimepiride (AMARYL) 1 MG tablet, Take 2 tablets QID (8 mg daily) . glucosamine-chondroitin 250-200 mg Tab, Take 1 tablet by mouth 2 (two) times a day . GNP LANCING DEVICE [facility], USE TO CHECK BLOOD GLUCOSE 4 TIMES A DAY losartan (COZAAR) 100 MG tablet, Take 100 mg by mouth every morning. metoprolol tartrate (LOPRESSOR) 25 MG tablet, Take 25 mg by mouth every evening. multivitamin (THERAGRAN) per tablet, take 1 tablet by oral route every day with food. naproxen (NAPROSYN) 250 MG tablet, Take 250 mg by mouth 2 (two) times a day as needed. potassium 99 mg Tab, Take 99 mg by mouth every other day . Review of Systems: Review of Systems Constitutional: Positive for unexpected weight change (weight has increased 3 lbs in last 6 months). Negative for fatigue. Eyes: Negative for visual disturbance. Respiratory: Negative for cough and shortness of breath. Cardiovascular: Negative for chest pain and leg swelling. Gastrointestinal: Negative for abdominal pain, constipation, diarrhea, nausea and vomiting. Endocrine: Negative for polydipsia, polyphagia and polyuria. Genitourinary: Negative for frequency and urgency. Skin: Negative for wound. Neurological: Positive for numbness (pain in feet). Psychiatric/Behavioral: Negative for sleep disturbance. The patient is not nervous/anxious. The following portions of the patient's history were reviewed and updated as appropriate: allergies, current medications, past family history, past medical history, past social history, past surgical history and problem list. Objective: BP (!) 189/71 (BP Location: Left arm, Patient Position: Sitting, BP Cuff Size: Adult) Pulse 71 Ht 5' 3.96 Wt 67.5 kg (148 lb 12.8 oz) BMI 25.57 kg/m Wt Readings from Last 3 Encounters: 06/06/20 67.5 kg (148 lb 12.8 oz) 12/07/19 65.9 kg (145 lb 4.8 oz) 12/02/18 65.7 kg (144 lb 13 oz) Physical Exam: General: alert, appears stated age and cooperative Eyes: conjunctivae/corneas clear. PERRL, EOM's intact. Neck: no adenopathy, supple, symmetrical, trachea midline. Thyroid: No thyromegaly appreciated Lung: clear to auscultation bilaterally Heart: regular rate and rhythm, S1, S2 normal, no murmur, click, rub or gallop Extremities: extremities normal, atraumatic, no cyanosis or edema Feet: Dry skin, Bilateral Feet: warm, good capillary refill, normal DP, onychomycosis, calluses and venous stasis dermatitis noted. Monofilament exam not assessed, bilateral lower extremities. Neuro: normal without focal findings, mental status, speech normal, alert and oriented x3 and TUAN Laboratory Review: BP (!) 189/71 (BP Location: Left arm, Patient Position: Sitting, BP Cuff Size: Adult) Pulse 71 Ht 5' 3.96 Wt 67.5 kg (148 lb 12.8 oz) BMI 25.57 kg/m Lab Results Component Value Date HGBA1C 7.0 (H) 06/02/2020 Glucose (mg/dL) Date Value 06/02/2020 108 (H) Creatinine (mg/dL) Date Value 06/02/2020 0.82 04/18/2019 0.67 Lab Results Component Value Date CHOL 162 12/03/2019 TRIG 136 12/03/2019 HDL 51 12/03/2019 LDLCALC 84 12/03/2019 Lab Results Component Value Date TSH 1.73 12/03/2019 Lab Results Component Value Date WBC 6.90 06/02/2020 HGB 13.2 06/02/2020 HCT 39.1 06/02/2020 MCV 92.7 06/02/2020 PLT 319 06/02/2020 Date: 06/02/20 *labs reviewed 06/06/20 Hgb A1c: 7.0% Creat: 0.82; eGFR: 68 AST: 16; ALT: 28 K: 4.2 CBC: WBC:6.90; Hgb: 13.2; Hct: 39.2; Plt: 319 Microalbumin/creatinine Ratio: 7 25-OH Vitamin D: 72 12/03/19 Hgb A1c: 7.2% Creat: 0.80; eGFR: 70 AST: 19; ALT: 25 K: 4.5 CBC: WBC:6.94; Hgb: 13.1; Hct: 39.7; Plt: 287 Tchol: 162; Tri ; HDL: 51 ; LDL: 84 TSH: 1.73 ; FreeT4: 1.0 Microalbumin/creatinine Ratio: 9 04/18/19 Hgb A1c: 7.3% Creat: 0.67; eGFR: >60 AST: 20; ALT: 14 K: 4.3 CBC: WBC: 7.32; Hgb: 13.3; Hct: 39; Plt: 293. Tchol: 153; Tri ; HDL: 56 ; LDL: 81 11/25/18 Hgb A1c: 6.7% Creat: 0.78; eGFR: 73 AST: 14; ALT: 21 K: 4.4 CBC: WBC:6.10; Hgb: 13.4; Hct: 40.0; Plt: 313 Tchol: 158; Tri ; HDL: 52 ; LDL: 77 TSH: 1.89 ; FreeT4: 0.9 Microalbumin/creatinine Ratio: 18 04/22/18 Hgb A1c: 6.7 Creat: 0.67; eGFR: >60 K: 4.5 Tchol: 164; Tri ; HDL: 55 ; LDL: 88 Component Latest Ref Rng & Units 11/06/2017 Glucose 70 - 99 mg/dL 108 (H) BUN 8 - 25 mg/dL 15 Creatinine 0.60 - 1.20 mg/dL 0.72 eGFR ml/min/1.73sq.m >=60 eGFR ml/min/1.73sq.m >=60 Calcium 8.4 - 10.2 mg/dL 8.4 Sodium 135 - 145 mmol/L 139 Potassium 3.5 - 5.1 mmol/L 4.3 Chloride 98 - 108 mmol/L 104 CO2 21 - 32 mmol/L 29 AST 0 - 45 U/L 13 ALT 14 - 65 U/L 18 Alkaline Phosphatase 40 - 150 U/L 84 Bilirubin, Total 0.3 - 1.2 mg/dL 0.4 Total Protein 6.0 - 8.0 g/dL 7.0 Albumin 3.2 - 5.2 g/dL 3.3 T4, Free 0.7 - 1.7 ng/dL 0.9 TSH 0.320 - 5.000 uIU/mL 2.04 Hemoglobin A1C 4.1 - 6.5 % 6.6 (H) Assessment/Plan: Dx: 1. Type 2 diabetes mellitus without complication, without long-term current use of insulin ([facility]) CBC and Differential Comprehensive Metabolic Panel Hemoglobin A1c Lipid Panel TSH T4, Free 2. Essential hypertension Type 2 diabetes, under good control Currently taking: Glimepiride 2 mg three times daily with meals and extra 1/2-1 tablet at bedtime if BG >200. Current Hemoglobin A1C= 7.0% 06/08 Lab Results Component Value Date HGBA1C 7.0 (H) 06/02/2020 HGBA1C 7.2 (H) 12/03/2019 HGBA1C 7.3 04/18/2019 Weight trend: has decreased 3 lbs. Current diet: carb controlled Current exercise: active Current monitoring regimen: home blood tests - 4 times daily Home blood sugar records: Fasting B-127 Pre-lunch B-147 Pre-supper B-252 Bedtime B-226 Any episodes of hypoglycemia? yes - infrequently NOTES: Patient doing well with Hgb A1c 7.2% 12/07. Currently taking 1.5-2 mg BID-TID at meals. PLAN: See below Retinopathy: Negative Exam within last 12 months: yes Date: 11/30/19 Contract Designer/Hopper Attendant: Dr. Hobson Other Ophthalmologic Conditions: None known Nephropathy: Negative Creat: 0.82 06/08. Lab Results Component Value Date CREATININE 0.82 06/02/2020 EXTEGFR >=60 11/06/2017 EXTEGFRAFAME >=60 11/06/2017 Microlbumin/creat ratio: Lab Results Component Value Date EXTMICROALBC 8 11/07/2016 Is patient on TRAVIS inhibitor or angiotensin II receptor yan? yes Losartan Peripheral Neuropathy: Negative Denies symptoms associated with neuropathy (numbness and/or tingling) Autonomic Neuropathy: Negative Hypoglycemia unawareness. Senses low BG at <100mg/dl. Other: Hyperlipidemia: Positive Currently taking: No lipid lowering agents. Lipids and LFT's WNL Lab Results Component Value Date AST 16 06/02/2020 ALT 28 06/02/2020 Lab Results Component Value Date EXTCHOL 153 04/18/2019 EXTTRIG 78 04/18/2019 EXTHDL 56 04/18/2019 EXTLDLCALC 81 04/18/2019 Hypertension: Positive. Currently taking: losartan (Cozaar) BP: (!) 189/71 Patient instructed to monitor Bp at home, patient to notify PCP if remains elevated or runs higher. Cardiac: Negative Experiencing chest pain No . Experiencing shortness of breath No History of No history of CAD Vascular: Negative History of None Feet: Last foot exam: 06/06/20 Follows with Podiatry: Yes Apparatus Lineman: Dr. Vinicius [place] History of foot ulceration: No History of amputation: No Left foot with two tendon tears and stress fracture 2017, wears braces off and on. Foot pain continues. Thyroid: Lab Results Component Value Date TSH 1.73 12/03/2019 Negative Other: Plan: 1. Rx changes: Continue current regimen Glimepiride 1.5-2 mg three times daily with 0.5 mg at HS if necessary. 2. Education: Reviewed ABCs of diabetes management (respective goals in parentheses): A1C (7.0-8.0), blood pressure (<130/80), and cholesterol (LDL <100). 3. Compliance at present is estimated to be excellent. Efforts to improve compliance (if necessary) will be directed at increased exercise. Also, will be directed at dietary modifications: Limit starches, carbohydrates and concentrated sugar sources 4. Follow up: 6 months 5. Record blood sugar readings as instructed. Call if BG consistently <70 or >250. [phone] Patient has been checking blood glucoses 3-4 times daily for the past 90 days. Patient needs to continue checking blood glucoses 3-4 times daily. Blood glucose readings are used to adjust medication or insulin doses for meals, monitor dietary compliance, and adjust for high or low blood glucoses by patient on a daily basis. Blood glucose readings are reviewed at office visits for adjustment in medication regimen and assistance with dietary management, and other self-management issues including exercise, etc. Prognosis: Good. Duration of need for diabetes testing equipment: Permanent #150 strips/month prescribed. 6. Bring blood sugar meter to follow up appointment. 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 02/24/2018 Hallux valgus, acquired 11/07/2009 02/24/19 19 Other acquired deformity of toe 11/07/2009 02/24/2018 Other hammer toe (acquired) 11/07/200908/2018 Dermatophytosis of nail 11/07/2009 02/24/19 19 documented as of this encounter (statuses as of 06/12/2021) [facility] History of Past illness Narrative* Problem Noted Date Resolved Date 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 02/24/2018 Hallux valgus, acquired 11/07/2009 02/24/19 19 Other acquired deformity of toe 11/07/2009 02/24/2018 Other hammer toe (acquired) 11/07/200908/2018 Dermatophytosis of nail 11/07/2009 02/24/19 19 documented as of this encounter (statuses as of 06/15/2021) [facility] History of Past illness Narrative* Problem Noted Date Resolved Date 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 02/24/2018 Hallux valgus, acquired 11/07/2009 02/24/19 19 Other acquired deformity of toe 11/07/2009 02/24/2018 Other hammer toe (acquired) 11/07/20090 08/2018 Dermatophytosis of nail 11/07/2009 02/24/19 19 documented as of this encounter (statuses as of 06/19/2021) [facility] History of Past illness Narrative* Problem Noted Date Resolved Date 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 02/24/2018 Hallux valgus, acquired 11/07/2009 02/24/19 19 Other acquired deformity of toe 11/07/2009 02/24/2018 Other hammer toe (acquired) 11/07/20090 08/2018 Dermatophytosis of nail 11/07/2009 02/24/19 19 documented as of this encounter (statuses as of 07/11/2021) [facility] History of Past illness Narrative* Problem Noted Date Resolved Date 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 02/24/2018 Hallux valgus, acquired 11/07/2009 02/24/19 19 Other acquired deformity of toe 11/07/2009 02/24/2018 Other hammer toe (acquired) 11/07/20090 08/2018 Dermatophytosis of nail 11/07/2009 02/24/19 19 documented as of this encounter (statuses as of 07/18/2021) [facility] History of Past illness Narrative* Problem Noted Date Resolved Date 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 02/24/2018 Hallux valgus, acquired 11/07/2009 02/24/19 19 Other acquired deformity of toe 11/07/2009 02/24/2018 Other hammer toe (acquired) 11/07/20090 08/2018 Dermatophytosis of nail 11/07/2009 02/24/19 19 documented as of this encounter (statuses as of 07/20/2021) [facility] History of Past illness Narrative* Problem Noted Date Resolved Date 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 02/24/2018 Hallux valgus, acquired 11/07/2009 02/24/19 19 Other acquired deformity of toe 11/07/2009 02/24/2018 Other hammer toe (acquired) 11/07/20090 08/2018 Dermatophytosis of nail 11/07/2009 02/24/19 19 documented as of this encounter (statuses as of 08/01/2021) [facility] History of Past illness Narrative* Problem Noted Date Resolved Date 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 02/24/2018 Hallux valgus, acquired 11/07/2009 02/24/19 19 Other acquired deformity of toe 11/07/2009 02/24/2018 Other hammer toe (acquired) 11/07/20090 08/2018 Dermatophytosis of nail 11/07/2009 02/24/19 19 documented as of this encounter (statuses as of 08/03/2021) [facility] History of Past illness Narrative* Problem Noted Date Resolved Date 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 02/24/2018 Hallux valgus, acquired 11/07/2009 02/24/19 19 Other acquired deformity of toe 11/07/2009 02/24/2018 Other hammer toe (acquired) 11/07/200908/2018 Dermatophytosis of nail 11/07/2009 02/24/19 19 documented as of this encounter (statuses as of 08/30/2021) [facility] History of Past illness Narrative* Problem Noted Date Resolved Date 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 02/24/2018 Hallux valgus, acquired 11/07/2009 02/24/19 19 Other acquired deformity of toe 11/07/2009 02/24/2018 Other hammer toe (acquired) 11/07/20090 08/2018 Dermatophytosis of nail 11/07/2009 02/24/19 19 documented as of this encounter (statuses as of 11/08/2021) [facility] History of Past illness Narrative* Problem Noted Date Resolved Date 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 02/24/2018 Hallux valgus, acquired 11/07/2009 02/24/19 19 Other acquired deformity of toe 11/07/2009 02/24/2018 Other hammer toe (acquired) 11/07/200908/2018 Dermatophytosis of nail 11/07/2009 02/24/19 19 documented as of this encounter (statuses as of 12/05/2021) [facility] History of Past illness Narrative* Problem Noted Date Resolved Date 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 02/24/2018 Hallux valgus, acquired 11/07/2009 02/24/19 19 Other acquired deformity of toe 11/07/2009 02/24/2018 Other hammer toe (acquired) 11/07/20090 08/2018 Dermatophytosis of nail 11/07/2009 02/24/19 19 documented as of this encounter (statuses as of 12/06/2021) [facility] History of Past illness Narrative* Problem Noted Date Resolved Date 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 02/24/2018 Hallux valgus, acquired 11/07/2009 02/24/19 19 Other acquired deformity of toe 11/07/2009 02/24/2018 Other hammer toe (acquired) 11/07/200908/2018 Dermatophytosis of nail 11/07/2009 02/24/19 19 documented as of this encounter (statuses as of 04/23/2022) [facility] History of Past illness Narrative* Problem Noted Date Resolved Date 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 02/24/2018 Hallux valgus, acquired 11/07/2009 02/24/19 19 Other acquired deformity of toe 11/07/2009 02/24/2018 Other hammer toe (acquired) 11/07/200908/2018 Dermatophytosis of nail 11/07/2009 02/24/19 19 documented as of this encounter (statuses as of 04/23/2022) [facility] History of Past illness Narrative* Problem Noted Date Resolved Date 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 02/24/2018 Hallux valgus, acquired 11/07/2009 02/24/19 19 Other acquired deformity of toe 11/07/2009 02/24/2018 Other hammer toe (acquired) 11/07/200908/2018 Dermatophytosis of nail 11/07/2009 02/24/19 19 documented as of this encounter (statuses as of 04/27/2022) [facility] History of Past illness Narrative* Problem Noted Date Resolved Date 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 02/24/2018 Hallux valgus, acquired 11/07/2009 02/24/19 19 Other acquired deformity of toe 11/07/2009 02/24/2018 Other hammer toe (acquired) 11/07/20090 08/2018 Dermatophytosis of nail 11/07/2009 02/24/19 19 documented as of this encounter (statuses as of 04/30/2022) [facility] History of Past illness Narrative* Problem Noted Date Resolved Date 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 02/24/2018 Hallux valgus, acquired 11/07/2009 02/24/19 19 Other acquired deformity of toe 11/07/2009 02/24/2018 Other hammer toe (acquired) 11/07/20090 08/2018 Dermatophytosis of nail 11/07/2009 02/24/19 19 documented as of this encounter (statuses as of 05/01/2022) [facility] History of Past illness Narrative* Problem Noted Date Resolved Date 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 02/24/2018 Hallux valgus, acquired 11/07/2009 02/24/19 19 Other acquired deformity of toe 11/07/2009 02/24/2018 Other hammer toe (acquired) 11/07/20090 08/2018 Dermatophytosis of nail 11/07/2009 02/24/19 19 documented as of this encounter (statuses as of 05/14/2022) [facility] History of Past illness Narrative* Problem Noted Date Resolved Date 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 02/24/2018 Hallux valgus, acquired 11/07/2009 02/24/19 19 Other acquired deformity of toe 11/07/2009 02/24/2018 Other hammer toe (acquired) 11/07/200908/2018 Dermatophytosis of nail 11/07/2009 02/24/19 19 documented as of this encounter (statuses as of 05/28/2022) [facility] History of Past illness Narrative* Problem Noted Date Resolved Date 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 02/24/2018 Hallux valgus, acquired 11/07/2009 02/24/19 19 Other acquired deformity of toe 11/07/2009 02/24/2018 Other hammer toe (acquired) 11/07/20090 08/2018 Dermatophytosis of nail 11/07/2009 02/24/19 19 documented as of this encounter (statuses as of 06/06/2022) [facility] History of Past illness Narrative* Problem Noted Date Resolved Date 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 02/24/2018 Hallux valgus, acquired 11/07/2009 02/24/19 19 Other acquired deformity of toe 11/07/2009 02/24/2018 Other hammer toe (acquired) 11/07/20090 08/2018 Dermatophytosis of nail 11/07/2009 02/24/19 19 documented as of this encounter (statuses as of 06/15/2022) [facility] History of Past illness Narrative* Problem Noted Date Resolved Date 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 02/24/2018 Hallux valgus, acquired 11/07/2009 02/24/19 19 Other acquired deformity of toe 11/07/2009 02/24/2018 Other hammer toe (acquired) 11/07/20090 08/2018 Dermatophytosis of nail 11/07/2009 02/24/19 19 documented as of this encounter (statuses as of 06/28/2022) [facility] History of Past illness Narrative* Problem Noted Date Resolved Date 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 02/24/2018 Hallux valgus, acquired 11/07/2009 02/24/19 19 Other acquired deformity of toe 11/07/2009 02/24/2018 Other hammer toe (acquired) 11/07/200908/2018 Dermatophytosis of nail 11/07/2009 02/24/19 19 documented as of this encounter (statuses as of 07/02/2022) [facility] History of Past illness Narrative* Problem Noted Date Resolved Date 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 02/24/2018 Hallux valgus, acquired 11/07/2009 02/24/19 19 Other acquired deformity of toe 11/07/2009 02/24/2018 Other hammer toe (acquired) 11/07/20090 08/2018 Dermatophytosis of nail 11/07/2009 02/24/19 19 documented as of this encounter (statuses as of 07/18/2022) [facility] History of Past illness Narrative* Problem Noted Date Resolved Date 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 02/24/2018 Hallux valgus, acquired 11/07/2009 02/24/19 19 Other acquired deformity of toe 11/07/2009 02/24/2018 Other hammer toe (acquired) 11/07/20090 08/2018 Dermatophytosis of nail 11/07/2009 02/24/19 19 documented as of this encounter (statuses as of 07/19/2022) [facility] History of Past illness Narrative* Problem Noted Date Resolved Date 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 02/24/2018 Hallux valgus, acquired 11/07/2009 02/24/19 19 Other acquired deformity of toe 11/07/2009 02/24/2018 Other hammer toe (acquired) 11/07/20090 08/2018 Dermatophytosis of nail 11/07/2009 02/24/19 19 documented as of this encounter (statuses as of 07/23/2022) [facility] History of Past illness Narrative* Problem Noted Date Diagnosed Date Resolved Date 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/05/2015 02/24/2018 Hallux valgus, acquired 11/07/20090 08/2018 Other acquired deformity of toe 11/07/2009 02/24/2018 Other hammer toe (acquired) 11/07/2009 02/24/2018 Dermatophytosis of nail 11/07/200908/2018 documented as of this encounter (statuses as of 08/28/2022) [facility] History of Past illness Narrative* Problem Noted Date Diagnosed Date Resolved Date 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/05/2015 02/24/2018 Hallux valgus, acquired 11/07/20090 08/2018 Other acquired deformity of toe 11/07/2009 02/24/2018 Other hammer toe (acquired) 11/07/2009 02/24/2018 Dermatophytosis of nail 11/07/20090 08/2018 documented as of this encounter (statuses as of 08/30/2022) [facility] History of Past illness Narrative* Problem Noted Date Diagnosed Date Resolved Date 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/05/2015 02/24/2018 Hallux valgus, acquired 11/07/20090 08/2018 Other acquired deformity of toe 11/07/2009 02/24/2018 Other hammer toe (acquired) 11/07/2009 02/24/2018 Dermatophytosis of nail 11/07/200908/2018 documented as of this encounter (statuses as of 08/31/2022) [facility] History of Past illness Narrative* Problem Noted Date Diagnosed Date Resolved Date 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/05/2015 02/24/2018 Hallux valgus, acquired 11/07/200908/2018 Other acquired deformity of toe 11/07/2009 02/24/2018 Other hammer toe (acquired) 11/07/2009 02/24/2018 Dermatophytosis of nail 11/07/200908/2018 documented as of this encounter (statuses as of 12/11/2022) [facility] History of Past illness Narrative* Problem Noted Date Diagnosed Date Resolved Date 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/05/2015 02/24/2018 Hallux valgus, acquired 11/07/200908/2018 Other acquired deformity of toe 11/07/2009 02/24/2018 Other hammer toe (acquired) 11/07/2009 02/24/2018 Dermatophytosis of nail 11/07/200908/2018 documented as of this encounter (statuses as of 01/29/2023) [facility] note* Diagnosis Type 2 diabetes mellitus without complication, without long-term current use of insulin ([facility])- Primary Essential hypertension Unspecified essential hypertension [facility] Diagnosis Diabetic foot (HCC)- Primary Type II or unspecified type diabetes mellitus with other specified manifestations, not stated as uncontrolled 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 Type II or unspecified type diabetes mellitus with neurological manifestations, not stated as uncontrolled [facility] Diagnosis Hypertension, essential Unspecified essential hypertension documented in this encounter [facility] note* 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 Type II or unspecified type diabetes mellitus with neurological manifestations, not stated as uncontrolled Essential hypertension Unspecified essential hypertension [facility]* Diagnosis Posterior tibial tendon tear, traumatic, right, initial encounter- Primary Onychomycosis Dermatophytosis of nail Peripheral vascular disease, unspecified (HCC) Peripheral vascular disease, unspecified [facility]* Diagnosis Urinary urgency- Primary Urgency of urination Flank pain Abdominal pain, unspecified site documented in this encounter [facility] note* Diagnosis Wellness examination- Primary documented in this encounter [facility] note* Diagnosis Urgency of urination- Primary Urinary frequency documented in this encounter [facility] note* Diagnosis Recurrent UTI (urinary tract infection)- Primary Urinary tract infection, site not specified documented in this encounter [facility] note* Diagnosis Hypertension, essential Unspecified essential hypertension documented in this encounter [facility] note* Diagnosis Posterior tibial tendon tear, traumatic, right, initial encounter- Primary Onychomycosis Dermatophytosis of nail Peripheral vascular disease, unspecified ([facility]) Peripheral vascular disease, unspecified documented in this encounter [facility] note* Diagnosis Hypertension, essential Unspecified essential hypertension documented in this encounter [facility] note* Diagnosis Hypertension, essential- Primary Unspecified essential hypertension Type 2 diabetes mellitus without complication, without long-term current use of insulin (HCC) Age-related osteoporosis without current pathological fracture Senile osteoporosis Dyslipidemia Other and unspecified hyperlipidemia Vitamin D deficiency Unspecified vitamin D deficiency Arthritis, multiple joint involvement Unspecified arthropathy, multiple sites documented in this encounter [facility] note* Diagnosis Onychomycosis- Primary Dermatophytosis of nail Peripheral vascular disease, unspecified (HCC) Peripheral vascular disease, unspecified documented in this encounter [facility] note* Diagnosis Hypertension, essential Unspecified essential hypertension documented in this encounter [facility] note* Diagnosis Urinary frequency- Primary Recurrent UTI (urinary tract infection) Urinary tract infection, site not specified Urinary urgency Urgency of urination Dysuria documented in this encounter [facility] note* Diagnosis Hypertension, essential Unspecified essential hypertension documented in this encounter [facility] note* Diagnosis Hypertension, essential- Primary Unspecified essential hypertension Type 2 diabetes mellitus without complication, without long-term current use of insulin (HCC) Recurrent UTI (urinary tract infection) Urinary tract infection, site not specified Dyslipidemia Other and unspecified hyperlipidemia Vitamin D deficiency Unspecified vitamin D deficiency Encounter for vitamin deficiency screening Screening for other and unspecified endocrine, nutritional, metabolic, and immunity disorders documented in this encounter [facility] note* Diagnosis Type II diabetes mellitus with neurological manifestations (HCC) Type II or unspecified type diabetes mellitus with neurological manifestations, not stated as uncontrolled documented in this encounter [facility] note* Diagnosis Age-related osteoporosis without current pathological fracture Senile osteoporosis [facility] Diagnosis Diabetic polyneuropathy associated with type 2 diabetes mellitus (HCC)- Primary Peripheral vascular disease, unspecified (HCC) Peripheral vascular disease, unspecified Onychomycosis Dermatophytosis of nail documented in this encounter [facility] note* Diagnosis Type 2 diabetes mellitus without complication, without long-term current use of insulin ([facility])- Primary Hypertension, essential Unspecified essential hypertension Dyslipidemia Other and unspecified hyperlipidemia Age-related osteoporosis without current pathological fracture Senile osteoporosis Arthritis, multiple joint involvement Unspecified arthropathy, multiple sites Vitamin D deficiency Unspecified vitamin D deficiency [facility] Diagnosis Type 2 diabetes mellitus without complication, without long-term current use of insulin ([facility]) [facility] Diagnosis Urinary frequency- Primary Urge incontinence of urine Urge incontinence documented in this encounter [facility] note* Diagnosis Acute cystitis without hematuria- Primary Acute cystitis documented in this encounter [facility] note* Diagnosis Urinary frequency- Primary Recurrent UTI (urinary tract infection) Urinary tract infection, site not specified Female bladder prolapse Cystocele, midline [facility] Diagnosis Onychomycosis- Primary Dermatophytosis of nail Peripheral vascular disease, unspecified ([facility]) Peripheral vascular disease, unspecified documented in this encounter [facility] note* Diagnosis Onychomycosis- Primary Dermatophytosis of nail Peripheral vascular disease, unspecified ([facility]) Peripheral vascular disease, unspecified documented in this encounter [facility] note* Diagnosis Urinary frequency- Primary Hypertension, essential Unspecified essential hypertension Dyslipidemia Other and unspecified hyperlipidemia Type 2 diabetes mellitus without complication, without long-term current use of insulin (HCC) Age-related osteoporosis without current pathological fracture Senile osteoporosis Arthritis, multiple joint involvement Unspecified arthropathy, multiple sites Vitamin D deficiency Unspecified vitamin D deficiency Vitamin B12 deficiency Other B-complex deficiencies documented in this encounter [facility] note* Diagnosis Angular cheilitis- Primary Diseases of lips Hypertension, essential Unspecified essential hypertension [facility] Diagnosis Type II diabetes mellitus wi th neurological manifestations ([facility]) - Primary Type II or unspecified type diabetes mellitus with neurological manifestations, not stated as uncontrolled Essential hypertension Unspecified essential hypertension Diagnosis Type II diabetes mellitus wi th neurological manifestations (HCC) - Primary Type II or unspecified type diabetes mellitus with neurological manifestations, not stated as uncontrolled Essential hypertension Unspecified essential hypertension Diagnosis Type II diabetes mellitus wi th neurological manifestations (HCC) - Primary Type II or unspecified type diabetes mellitus with neurological manifestations, not stated as uncontrolled Essential hypertension Unspecified essential hypertension Osteopenia, unspecified loca tion 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 Type II or unspecified type diabetes mellitus with neurological manifestations, not stated as uncontrolled Essential hypertension Unspecified essential hypertension Diagnosis Type II diabetes mellitus with neurological manifestations (HCC) Type II or unspecified type diabetes mellitus with neurological manifestations, not stated as uncontrolled Essential hypertension Unspecified essential hypertension 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 Type II or unspecified type diabetes mellitus with neurological manifestations, not stated as uncontrolled Essential hypertension Unspecified essential hypertension Summary Purpose Family History No Family History Records FoundNo Family History Records FoundNo Family History Records FoundNo Family History Records FoundNo Family History Records FoundNo Family History Records FoundNo Family History Records FoundNo Family History Records FoundNo Family History Records Found Advance Directives No Advanced Directives Records FoundDocuments on File Type Date Recorded 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 If you would like, take a third tablet based on what you are eating and your activity level. in this encounter History of Present Illness * Devika Izquierdo CNP - 11/13/2016 8:23 AM EDT Formatting of this note may be different from the original. Patient ID: Anahi Diallo is a 76 y.o. female Subjective: HPI: Anahi Diallo presents for follow-up of Type 2 diabetes The initial diagnosis of diabetes was made 24 years ago in 1992. Pertinent negatives for diabetes include: no chest pain no shortness of breath no polyuria, polydipsia, polyphagia no nausea or vomiting no blurred vision no weight loss no recent hypoglycemia Pertinent positives for diabetes include: reports numbness or tingling Hypoglycemia symptoms include hunger and sweats. There are no hypoglycemic complications, no nocturnal hypoglycemia. Diabetic complications include diabetic neuropathy Pertinent negatives for diabetic complications include no: diabetic nephropathy, diabetic retinopathy and autonomic neuropathy Current diabetic treatment includes oral agent/s Self Monitored blood glucose levels Patient has been checking BG QID AC/HS. FBG 84-124; rest of [id number], occ up to 200-250 after eating out Patient's weight has decreased 6 lbs. 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 Meal planning includes avoidance of concentrated sweets. An TRAVIS inhibitor/angiotensin II receptor yan is being taken. Patient does see a mechanical handyman. Eye exam is current. Currently taking: Glimepiride 1 mg twice daily Typically last meal is at 6 pm, no evening snack and eats breakfast around 8 am Current Outpatient Prescriptions Medication Sig Dispense Refill amLODIPine (NORVASC) 5 MG tablet TAKE 1 TABLET EVERY DAY 90 tablet 3 blood sugar diagnostic (ONETOUCH ULTRA TEST) strips Use as directed 4 times per day E11.65. 400 strip 4 blood-glucose meter kit use as directed. calcium citrate-vitamin D (CITRACAL+D) 315-200 mg-unit per tablet take 2 Tablet by Oral route everyday. chromium picolinate 200 mcg Tab coenzyme Q10 10 mg capsule Take by mouth. glimepiride (AMARYL) 1 MG tablet Take 2 (two) tablets (2 mg total) by mouth 2 (two) times a day. 120 tablet 1 glucosamine-chondroitin 250-200 mg Tab multivitamin (THERAGRAN) per tablet take 1 tablet by oral route every day with food. naproxen (NAPROSYN) 250 MG tablet Take 250 mg by mouth 2 (two) times a day as needed. potassium 99 mg Tab 99 mg. raloxifene (EVISTA) 60 mg tablet 60 mg. ramipril (ALTACE) 10 MG capsule TAKE 1 CAPSULE EVERY DAY 90 capsule 3 No current facility-administered medications for this visit. Review of Systems: Review of Systems Constitutional: Negative for appetite change, fatigue and unexpected weight change. HENT: Negative for trouble swallowing. Eyes: Negative for visual disturbance. Respiratory: Negative for cough, chest tightness, shortness of breath and wheezing. Cardiovascular: Negative for chest pain, palpitations and leg swelling. Gastrointestinal: Negative for abdominal pain, constipation, diarrhea, nausea and vomiting. Endocrine: Negative for polydipsia, polyphagia and polyuria. Genitourinary: Positive for frequency. Negative for dysuria and urgency. Uterus prolapsing causing frequent urination Musculoskeletal: Positive for arthralgias. Negative for gait problem and myalgias. Left foot tendons and stress fracture recently. Seeing mechanical handyman in [place]. Skin: Negative for wound. Flushed face Neurological: Negative for weakness, numbness and headaches. Psychiatric/Behavioral: Positive for sleep disturbance (up and down all night to urinate). Negativefor agitation. The patient is not nervous/anxious. The following portions of the patient's history were reviewed and updated as appropriate: allergies, current medications, past family history, past medical history, past social history, past surgicalhistory and problem list. Objective: BP (P) 122/74 Pulse (P) 68 Ht 5' 4 Wt 61.2 kg (135 lb) BMI 23.17 kg/m2 Wt Readings from Last 3 Encounters: 11/13/16 61.2 kg (135 lb) 05/11/16 64 kg (141 lb) 11/11/15 61.2 kg (135 lb) Physical Exam: General: alert, appears stated age and cooperative Eyes: conjunctivae/corneas clear. PERRL, EOM's intact. Neck: no adenopathy, supple, symmetrical, trachea midline. Thyroid: No thyromegaly appreciated Lung: clear to auscultation bilaterally Heart: regular rate and rhythm, S1, S2 normal, no murmur, click, rub or gallop Extremities: extremities normal, atraumatic, no cyanosis. no edema Feet: Dry skin, Bilateral Feet: warm, good capillary refill, normal DP, onychomycosis and calluses . Monofilament exam abnormal, bilateral lower extremities. Heels with less feeling that toes Neuro: normal without focal findings, mental status, speech normal, alert and oriented x3 and TUAN Lab Review Date: 11/07/16 Hgb A1C 6.4% Cr 0.72, eGFR >60, K 4.0 MicroAlb/Cr ratio: 8 AST 15, ALT 20 TSH 1.33, FT4--0.9 T Chol 147, Trig 115, HDL 55. LDL 68 WBC 7.6, Hgb 14.2, Hct 42.6, Plat 284 05/07/16 HgbA1C 6.3% Creat 0.65, K 4.2 AST 20, ALT 16 WBC 6.6, Hgb 14.3, Hct 43.4, Plt 276k 11/08/15 HgbA1C 6.9% Creat 0.67, K 4.5 AST 18, ALT 16 TChol 175, TG 83, HDL 60, LDL 98 TSH 1.334, FT4--0.93 Microalb/creat <0.3 05/02/15 Hgb A1c: Creat: 0.65 AST: 16; ALT: 19 K: 4.5 CBC: WBC:6.3; Hgb: 13.6; Hct: 40.4; Plt: 453 11/02/14 Tchol: 155; Tri ; HDL: 58 ; LDL: 84 TSH: 1.588 ; FreeT4: 0.95 Microalbumin/creatinine Ratio: below assay Assessment: Dx: Patient Active Problem List Diagnosis Type II diabetes mellitus (HCC) Type II diabetes mellitus with neurological manifestations (HCC) Essential hypertension Type 2 diabetes, under excellent control Anahilarry Diallo presents for follow-up of Type 2 diabetes Patient is currently managed with: amaryl 1mg BID, occasionally she take it TID. Most recent Hgb A1c was 6.4% on 11/07/16. At times her Amaryl dose is increased due to hyperglycemia from decreased exercise or some steroid therapy. PLAN: Continue glimepiride 1 mg tablets BID although pt takes a half to 1 tablet at lunch on occasion. Lately she has been taking 1 mg BID with increased activity this summer. Retinopathy: Negative Exam within last 12 months: yes Date: 10/04. Follows with Dr. Hobson. Nephropathy: Negative Creat: 0.72 on 11/07/16; Mialb/creat ratio: 8 on 11/07/16, patient takes ramipril Peripheral Neuropathy: Positive Reports bilateral numbness and tingling in feet; has a tight feeling in foot Autonomic Neuropathy: Negative Patient aware of lows Hyperlipidemia: Negative Currently taking: No lipid lowering agents. LFT's WNL; 11/07/16: TChol 147,TG 115, HDL 55, LDL 68 Hypertension: Positive. Currently taking: amlodipine (Norvasc) and ramipril. Stable (Goal<130/80) BP: (P) 122/74 Cardiac: Negative Denies Chest pain or SOB at this time. Vascular: Negative edema Feet: Negative sores or lesions at this time. Has torn tendon, left foot; wearing brace on ankle. Last foot exam: 11/17/16 Left foot brace and diabetic shoes .Seeing a mechanical handyman in [place], Dr [place]. Thyroid: negative TSH 1.33, FT4--0.9 on 11/07/16 Other: Osteopenia, on Evista. [facility] Requesting Vit D Level. Will order with labs prior to next appointment Plan: Type II diabetes mellitus with neurological manifestations (HCC) [E11.49] 1. Rx changes: Continue current regimen Glimepiride 1 mg twice daily Occasionally takes an extra tablet based on what she is eating or her activity level 2. Education: Reviewed ABCs of diabetes management (respective goals in parentheses): A1C (7.0-8.0), blood pressure (<130/80), and cholesterol (LDL <100). 3. Compliance at present is estimated to be excellent. Efforts to improve compliance (if necessary)will be directed at dietary modifications: Limit portion sizes and Limit starches, carbohydrates and concentrated sugar sources, increased exercise and regular blood sugar monitorin times daily. 4. Follow up: 6 months 5. Record blood sugar readings as instructed. Call if BG consistently <70 or >250. [phone] Check blood sugar 4 times daily. 6. Bring blood sugar meter to follow up appointment. Orders Placed This Encounter Procedures Hemoglobin A1c CBC and Differential Comprehensive Metabolic Panel Vitamin D, Total, 25-OH in this encounter* Reggie Son CNP - 12/02/2018 8:55 AM EDT Patient ID: Anahi Diallo is a 78 y.o. female 1940 Subjective: Anahi Diallo presents for follow-up of Type 2 diabetes Patient has had diabetes for 26 years. Diagnosed in 1992 Outpatient Medications Marked as Taking for the 12/02/18 encounter (Office Visit) with Reggie Son CNP: blood sugar diagnostic (TRUE METRIX GLUCOSE TEST STRIP) strips, as directed. DX code E11.9 . blood-glucose meter kit, use as directed. calcium citrate-vitamin D (CITRACAL+D) 315-200 mg-unit per tablet, take 2 Tablet by Oral route every day. chromium picolinate 200 mcg Tab, coenzyme Q10 10 mg capsule, Take by mouth. cranberry fruit concentrate (AZO CRANBERRY ORAL), Take by mouth . glimepiride (AMARYL) 1 MG tablet, Take 2 tablets in AM and 3 tablets in PM . (Patient taking differently: Patient states 1-2 tablets in the morning, 1-2 tablet at lunch, 1-2 tablets at dinner .) glucosamine-chondroitin 250-200 mg Tab, Take 1 tablet by mouth 2 (two) times a day . GNP LANCING DEVICE [facility], USE TO CHECK BLOOD GLUCOSE 4 TIMES A DAY losartan (COZAAR) 100 MG tablet, Take 100 mg by mouth every morning. metoprolol tartrate (LOPRESSOR) 25 MG tablet, Take 25 mg by mouth every evening. multivitamin (THERAGRAN) per tablet, take 1 tablet by oral route every day with food. naproxen (NAPROSYN) 250 MG tablet, Take 250 mg by mouth 2 (two) times a day as needed. potassium 99 mg Tab, Take 99 mg by mouth 2 (two) times a day . raloxifene (EVISTA) 60 mg tablet, Take 60 mg by mouth daily . UNABLE TO FIND, Bioflex . Review of Systems: Review of Systems Constitutional: Negative for fatigue and unexpected weight change. Eyes: Negative for visual disturbance. Respiratory: Negative for cough and shortness of breath. Cardiovascular: Negative for chest pain and leg swelling. Gastrointestinal: Negative for abdominal pain, constipation, diarrhea, nausea and vomiting. Endocrine: Negative for polydipsia, polyphagia and polyuria. Genitourinary: Negative for frequency and urgency. Skin: Negative for wound. Neurological: Negative for numbness and headaches. Psychiatric/Behavioral: Negative for agitation and sleep disturbance. The patient is not nervous/anxious. The following portions of the patient's history were reviewed and updated as appropriate: allergies, current medications, past family history, past medical history, past social history, past surgicalhistory and problem list. Objective: BP (!) 168/79 Pulse 70 Ht 5' 3.96 Wt 65.7 kg (144 lb 13 oz) BMI 24.89 kg/m Wt Readings from Last 3 Encounters: 12/02/18 65.7 kg (144 lb 13 oz) 05/29/18 66.7 kg (147 lb) 11/22/17 65.2 kg (143 lb 12.8 oz) Physical Exam: General: alert, appears stated age and cooperative Eyes: conjunctivae/corneas clear. PERRL, EOM's intact. Neck: no adenopathy, supple, symmetrical, trachea midline. Thyroid: No thyromegaly appreciated Lung: clear to auscultation bilaterally Heart: regular rate and rhythm, S1, S2 normal, no murmur, click, rub or gallop Extremities: extremities normal, atraumatic, no cyanosis or edema Feet: Dry skin, Bilateral Feet: warm, good capillary refill and normal DP. Monofilament exam not assessed, bilateral lower extremities. Neuro: normal without focal findings, mental status, speech normal, alert and oriented x3 and TUAN Laboratory Review: BP (!) 168/79 Pulse 70 Ht 5' 3.96 Wt 65.7 kg (144 lb 13 oz) BMI 24.89 kg/m Lab Results Component Value Date HGBA1C 6.7 (H) 11/25/2018 Glucose (mg/dL) Date Value 11/25/2018 92 Creatinine (mg/dL) Date Value 11/25/2018 0.78 11/06/2017 0.72 Lab Results Component Value Date CHOL 158 11/25/2018 TRIG 146 11/25/2018 HDL 52 11/25/2018 LDLCALC 77 11/25/2018 Lab Results Component Value Date TSH 1.89 11/25/2018 Lab Results Component Value Date WBC 6.10 11/25/2018 HGB 13.4 11/25/2018 HCT 40.0 11/25/2018 MCV 91.3 11/25/2018 PLT 313 11/25/2018 Date: 11/25/18 *labs reviewed 12/02/18 Hgb A1c: 6.7% Creat: 0.78; eGFR: 73 AST: 14; ALT: 21 K: 4.4 CBC: WBC:6.10; Hgb: 13.4; Hct: 40.0; Plt: 313 Tchol: 158; Tri ; HDL: 52 ; LDL: 77 TSH: 1.89 ; FreeT4: 0.9 Microalbumin/creatinine Ratio: 18 04/22/18 Hgb A1c: 6.7 Creat: 0.67; eGFR: >60 K: 4.5 Tchol: 164; Tri ; HDL: 55 ; LDL: 88 Component Latest Ref Rng & Units 11/06/2017 Glucose 70 - 99 mg/dL 108 (H) BUN 8 - 25 mg/dL 15 Creatinine 0.60 - 1.20 mg/dL 0.72 eGFR ml/min/1.73sq.m >=60 eGFR ml/min/1.73sq.m >=60 Calcium 8.4 - 10.2 mg/dL 8.4 Sodium 135 - 145 mmol/L 139 Potassium 3.5 - 5.1 mmol/L 4.3 Chloride 98 - 108 mmol/L 104 CO2 21 - 32 mmol/L 29 AST 0 - 45 U/L 13 ALT 14 - 65 U/L 18 Alkaline Phosphatase 40 - 150 U/L 84 Bilirubin, Total 0.3 - 1.2 mg/dL 0.4 Total Protein 6.0 - 8.0 g/dL 7.0 Albumin 3.2 - 5.2 g/dL 3.3 T4, Free 0.7 - 1.7 ng/dL 0.9 TSH 0.320 - 5.000 uIU/mL 2.04 Hemoglobin A1C 4.1 - 6.5 % 6.6 (H) Assessment/Plan: Dx: 1. Type II diabetes mellitus with neurological manifestations (HCC) 2. Essential hypertension Type 2 diabetes, under good control Currently taking: Glimepiride 1.5-2 mg three times daily Current Hemoglobin A1C= 6.7% 11/25/18 Lab Results Component Value Date HGBA1C 6.7 (H) 11/25/2018 HGBA1C 6.6 (H) 11/06/2017 HGBA1C 6.4 11/07/2016 Weight trend: has decreased 3 lbs. Current diet: carb controlled Current exercise: active Current monitoring regimen: home blood tests - 4 times daily Home blood sugar records: Fasting B-127 Pre-lunch B-147 Pre-supper B-252 Bedtime B-226 Any episodes of hypoglycemia? yes - infrequently NOTES: Patient doing well with Hgb A1c 6.7% 12/06. Currently taking 1.5-2 mg BID-TID at meals. PLAN: See below Retinopathy: Negative Exam within last 12 months: yes Date: 11/24/18 Contract Designer/Hopper Attendant: Dr. Hobson Other Ophthalmologic Conditions: None known Nephropathy: Negative Creat: Lab Results Component Value Date CREATININE 0.78 11/25/2018 EXTEGFR >=60 11/06/2017 EXTEGFRAFAME >=60 11/06/2017 Microlbumin/creat ratio: Lab Results Component Value Date EXTMICROALBC 8 11/07/2016 Is patient on TRAVIS inhibitor or angiotensin II receptor yan? yes Losartan Peripheral Neuropathy: Negative Denies symptoms associated with neuropathy (numbness and/or tingling) Autonomic Neuropathy: Negative Hypoglycemia unawareness. Senses low BG at <100mg/dl. Other: Hyperlipidemia: Positive Currently taking: No lipid lowering agents. LFT's WNL Lab Results Component Value Date AST 14 11/25/2018 ALT 21 11/25/2018 Lab Results Component Value Date EXTCHOL 147 11/07/2016 EXTTRIG 115 11/07/2016 EXTHDL 55 11/07/2016 Tchol: 158; Tri ; HDL: 52 ; LDL: 77 Hypertension: Positive. Currently taking: losartan (Cozaar) BP: (!) 168/79 Cardiac: Negative Experiencing chest pain No . Experiencing shortness of breath No History of No history of CAD Vascular: Negative History of None Feet: Last foot exam: 12/02/18 Follows with Podiatry: Yes Apparatus Lineman: Dr. Vinicius [place] History of foot ulceration: No History of amputation: No Left foot with two tendon tears and stress fracture 2018, wears brace. Right foot pain after spending more time on ladder. Thyroid: Lab Results Component Value Date TSH 1.89 11/25/2018 Negative Other: Plan: 1. Rx changes: Continue current regimen Glimepiride 1.5-2 mg three times daily 2. Education: Reviewed ABCs of diabetes management (respective goals in parentheses): A1C (7.0-8.0), blood pressure (<130/80), and cholesterol (LDL <100). 3. Compliance at present is estimated to be excellent. Efforts to improve compliance (if necessary)will be directed at increased exercise. Also, will be directed at dietary modifications: Limit starches, carbohydrates and concentrated sugar sources 4. Follow up: 6 months 5. Record blood sugar readings as instructed. Call if BG consistently <70 or >250. [phone] Patient has been checking blood glucoses 3-4 times daily for the past 90 days. Patient needs to continue checking blood glucoses 3-4 times daily. Blood glucose readings are used to adjust medication or insulin doses for meals, monitor dietary compliance, and adjust for high or low blood glucoses by patient on a daily basis. Blood glucose readings are reviewed at office visits for adjustment in medication regimen and assistance with dietary management, and other self- management issues including exercise, etc. Prognosis: Good. Duration of need for diabetes testing equipment: Permanent #150 strips/month prescribed. 6. Bring blood sugar meter to follow up appointment. Orders Placed This Encounter Procedures Comprehensive Metabolic Panel Hemoglobin A1c TSH T4, Free documented in this encounter* Reggie Son CNP - 06/01/2019 9:04 AM EDT Patient ID: Anahi Diallo is a 78 y.o. female 1940 Subjective: Patient ID: Anahi Diallo is a 78 y.o. female on the phone for follow-up of Type 2 diabetes Patient phone : [phone] This visit has been fully reviewed with the patient and verbal consent has been obtained. Outpatient Medications Marked as Taking for the 06/01/19 encounter (Office Visit) with Reggie Son CNP: blood sugar diagnostic (TRUE METRIX GLUCOSE TEST STRIP) strips, as directed. DX code E11.9 . blood-glucose meter kit, use as directed. calcium citrate-vitamin D (CITRACAL+D) 315-200 mg-unit per tablet, take 2 Tablet by Oral route every day. chromium picolinate 200 mcg Tab, coenzyme Q10 10 mg capsule, Take by mouth. cranberry fruit concentrate (AZO CRANBERRY ORAL), Take by mouth . glimepiride (AMARYL) 1 MG tablet, Take 2 tablets TID (6 mg daily) . glucosamine-chondroitin 250-200 mg Tab, Take 1 tablet by mouth 2 (two) times a day . GNP LANCING DEVICE [facility], USE TO CHECK BLOOD GLUCOSE 4 TIMES A DAY losartan (COZAAR) 100 MG tablet, Take 100 mg by mouth every morning. metoprolol tartrate (LOPRESSOR) 25 MG tablet, Take 25 mg by mouth every evening. multivitamin (THERAGRAN) per tablet, take 1 tablet by oral route every day with food. naproxen (NAPROSYN) 250 MG tablet, Take 250 mg by mouth 2 (two) times a day as needed. potassium 99 mg Tab, Take 99 mg by mouth 2 (two) times a day . raloxifene (EVISTA) 60 mg tablet, Take 60 mg by mouth daily . UNABLE TO FIND, Bioflex . Review of Systems: Review of Systems Constitutional: Negative for fatigue and unexpected weight change. Eyes: Negative for visual disturbance. Respiratory: Negative for cough and shortness of breath. Cardiovascular: Negative for chest pain and leg swelling. Gastrointestinal: Negative for abdominal pain, constipation, diarrhea, nausea and vomiting. Endocrine: Negative for polydipsia, polyphagia and polyuria. Genitourinary: Negative for frequency and urgency. Skin: Negative for wound. Neurological: Negative for numbness and headaches. Psychiatric/Behavioral: Negative for agitation and sleep disturbance. The patient is not nervous/anxious. The following portions of the patient's history were reviewed and updated as appropriate: allergies, current medications, past family history, past medical history, past social history, past surgicalhistory and problem list. Objective: Laboratory Review: Lab Results Component Value Date HGBA1C 6.7 (H) 11/25/2018 Glucose (mg/dL) Date Value 11/25/2018 92 Creatinine (mg/dL) Date Value 11/25/2018 0.78 11/06/2017 0.72 Lab Results Component Value Date CHOL 158 11/25/2018 TRIG 146 11/25/2018 HDL 52 11/25/2018 LDLCALC 77 11/25/2018 Lab Results Component Value Date TSH 1.89 11/25/2018 Lab Results Component Value Date WBC 6.10 11/25/2018 HGB 13.4 11/25/2018 HCT 40.0 11/25/2018 MCV 91.3 11/25/2018 PLT 313 11/25/2018 Date: 04/18/19 Hgb A1c: 7.3% Creat: 0.67; eGFR: >60 AST: 20; ALT: 14 K: 4.3 CBC: WBC: 7.32; Hgb: 13.3; Hct: 39; Plt: 293. Tchol: 153; Tri ; HDL: 56 ; LDL: 81 Assessment/Plan: Dx: 1. Type II diabetes mellitus with neurological manifestations (HCC) 2. Essential hypertension Type 2 diabetes, under good control Currently taking: Glimepiride 1.5-2 mg three times daily Current Hemoglobin A1C= Lab Results Component Value Date HGBA1C 6.7 (H) 11/25/2018 HGBA1C 6.6 (H) 11/06/2017 HGBA1C 6.4 11/07/2016 Weight trend: is stable Current diet: avoiding concentrated sugars Current exercise: walking Current monitoring regimen: home blood tests - 4 times daily Home blood sugar records: Fasting B-107 Pre-lunch BG: Pre-supper B-144 Bedtime B-207 Any episodes of hypoglycemia? no NOTES: Patient without complaints. 6.7%. Patient has been taking glimepiride 2 mg TID with meals. Will occasionally take 0.5 mg less or more if BG low or elevated. PLAN: See below Brief review as indicated: Retinopathy: Nephropathy: Peripheral Neuropathy: Hyperlipidemia: Hypertension: 156/84 today at home 04/19/19 at PCP 124/58 Cardiac: Vascular: Feet: Thyroid: Other: Plan: 1. Rx changes: Continue current regimen Glimepiride 2 mg three times daily 2. Education: Reviewed with patient when to call office. 3. Compliance at present is estimated to be good. Efforts to improve compliance (if necessary) willbe directed at increased exercise. Also, will be directed at dietary modifications: Limit starches,carbohydrates and concentrated sugar sources 4. Follow up: 6 months Provider location: [facility] Alyssa RICO (11) [facility] [address] [facility] [address] Patient location: [address] [place], [place] [id number] I have spent 11-20 minutes with the patient discussing current HPI. Orders Placed This Encounter Procedures Comprehensive Metabolic Panel Hemoglobin A1c TSH T4, Free CBC and Differential documented in this encounter* Reggie Son CNP - 05/29/2018 8:21 AM EDT Patient ID: Anahi Diallo is a 77 y.o. female 1940 Subjective: Anahi Diallo presents for follow-up of Type 2 diabetes Patient has had diabetes for 26 years. Diagnosed in 1992 Current Outpatient Medications Medication Sig Dispense Refill blood-glucose meter kit use as directed. calcium citrate-vitamin D (CITRACAL+D) 315-200 mg-unit per tablet take 2 Tablet by Oral route everyday. chromium picolinate 200 mcg Tab coenzyme Q10 10 mg capsule Take by mouth. cranberry fruit concentrate (AZO CRANBERRY ORAL) Take by mouth . glimepiride (AMARYL) 1 MG tablet Take 2 tablets in AM and 3 tablets in PM. 150 tablet 12 GNP LANCING DEVICE Mis USE TO CHECK BLOOD GLUCOSE 4 TIMES A DAY 1 each 0 losartan (COZAAR) 100 MG tablet Take 100 mg by mouth every morning. metoprolol tartrate (LOPRESSOR) 25 MG tablet Take 25 mg by mouth every evening. multivitamin (THERAGRAN) per tablet take 1 tablet by oral route every day with food. naproxen (NAPROSYN) 250 MG tablet Take 250 mg by mouth 2 (two) times a day as needed. potassium 99 mg Tab 99 mg. raloxifene (EVISTA) 60 mg tablet 60 mg. UNABLE TO FIND Patronpathflex . blood sugar diagnostic (TRUE METRIX GLUCOSE TEST STRIP) strips as directed. DX code E11.9. 400 each3 glucosamine-chondroitin 250-200 mg Tab No current facility-administered medications for this visit. Review of Systems: Review of Systems Constitutional: Negative for fatigue and unexpected weight change. Eyes: Negative for visual disturbance. Respiratory: Negative for cough and shortness of breath. Cardiovascular: Negative for chest pain and leg swelling. Gastrointestinal: Negative for abdominal pain, constipation, diarrhea, nausea and vomiting. Endocrine: Negative for polydipsia, polyphagia and polyuria. Genitourinary: Negative for frequency and urgency. Skin: Negative for wound. Neurological: Negative for numbness and headaches. Psychiatric/Behavioral: Negative for agitation and sleep disturbance. The patient is not nervous/anxious. The following portions of the patient's history were reviewed and updated as appropriate: allergies, current medications, past family history, past medical history, past social history, past surgicalhistory and problem list. Objective: BP (!) (P) 171/72 Pulse (P) 69 Ht 5' 4 Wt 66.7 kg (147 lb) BMI 25.23 kg/m Wt Readings fromLast 3 Encounters: 05/29/18 66.7 kg (147 lb) 10/05/18 65.2 kg (143 lb 12.8 oz) 05/14/17 63.5 kg (140 lb) Physical Exam: General: alert, appears stated age and cooperative Eyes: conjunctivae/corneas clear. PERRL, EOM's intact. Neck: no adenopathy, supple, symmetrical, trachea midline. Thyroid: No thyromegaly appreciated Lung: clear to auscultation bilaterally Heart: regular rate and rhythm, S1, S2 normal, no murmur, click, rub or gallop Extremities: extremities normal, atraumatic, no cyanosis or edema Feet: Dry skin, Bilateral Feet: warm, good capillary refill and normal DP. Monofilament exam not assessed, bilateral lower extremities. Neuro: normal without focal findings, mental status, speech normal, alert and oriented x3 and [facility] Laboratory Review: BP (!) (P) 171/72 Pulse (P) 69 Ht 5' 4 Wt 66.7 kg (147 lb) BMI 25.23 kg/m Lab Results Component Value Date HGBA1C 6.6 (H) 11/06/2017 Creatinine (mg/dL) Date Value 11/06/2017 0.72 No results found for: CHOL, TRIG, HDL, LDLCALC, LDL Lab Results Component Value Date TSH 2.04 11/06/2017 Lab Results Component Value Date WBC 7.6 11/07/2016 HGB 14.2 11/07/2016 HCT 42.6 11/07/2016 PLT 284 11/07/2016 Date: 04/22/18 Hgb A1c: 6.7 Creat: 0.67; eGFR: >60 K: 4.5 Tchol: 164; Tri ; HDL: 55 ; LDL: 88 Component Latest Ref Rng & Units 11/06/2017 Glucose 70 - 99 mg/dL 108 (H) BUN 8 - 25 mg/dL 15 Creatinine 0.60 - 1.20 mg/dL 0.72 eGFR ml/min/1.73sq.m >=60 eGFR ml/min/1.73sq.m >=60 Calcium 8.4 - 10.2 mg/dL 8.4 Sodium 135 - 145 mmol/L 139 Potassium 3.5 - 5.1 mmol/L 4.3 Chloride 98 - 108 mmol/L 104 CO2 21 - 32 mmol/L 29 AST 0 - 45 U/L 13 ALT 14 - 65 U/L 18 Alkaline Phosphatase 40 - 150 U/L 84 Bilirubin, Total 0.3 - 1.2 mg/dL 0.4 Total Protein 6.0 - 8.0 g/dL 7.0 Albumin 3.2 - 5.2 g/dL 3.3 T4, Free 0.7 - 1.7 ng/dL 0.9 TSH 0.320 - 5.000 uIU/mL 2.04 Hemoglobin A1C 4.1 - 6.5 % 6.6 (H) Assessment/Plan: Dx: SNOMED CT(R) 1. Type II diabetes mellitus with neurological manifestations (HCC) TYPE 2 DIABETES MELLITUS 2. Essential hypertension ESSENTIAL HYPERTENSION Type 2 diabetes, under good control Currently taking: Glimepiride 1-2 mg twice daily Current Hemoglobin A1C= 6.7% 04/22/18 Lab Results Component Value Date HGBA1C 6.6 (H) 11/06/2017 HGBA1C 6.4 11/07/2016 Weight trend: has increased 4 lbs. Current diet: carb controlled Current exercise: active Current monitoring regimen: home blood tests - 4 times daily Home blood sugar records: Fasting B-127 Pre-lunch B-147 Pre-supper B-252 Bedtime B-226 Any episodes of hypoglycemia? yes - infrequently NOTES: Patient doing well with Hgb A1c 6.7% 05/06. Currently taking 1.5-2 mg BID at meals. PLAN: See below Retinopathy: Negative Exam within last 12 months: yes Date: 10/05 Contract Designer/Hopper Attendant: Dr. Hobson Other Ophthalmologic Conditions: None known Nephropathy: Negative Creat: Lab Results Component Value Date CREATININE 0.72 11/06/2017 EXTEGFR >=60 11/06/2017 EXTEGFRAFAME >=60 11/06/2017 Microlbumin/creat ratio: Lab Results Component Value Date EXTMICROALBC 8 11/07/2016 Is patient on TRAVIS inhibitor or angiotensin II receptor yan? yes Losartan Peripheral Neuropathy: Negative Denies symptoms associated with neuropathy (numbness and/or tingling) Autonomic Neuropathy: Negative Hypoglycemia unawareness. Senses low BG at <100mg/dl. Other: Hyperlipidemia: Positive Currently taking: No lipid lowering agents. LFT's WNL Lab Results Component Value Date AST 13 11/06/2017 ALT 18 11/06/2017 Lab Results Component Value Date EXTCHOL 147 11/07/2016 EXTTRIG 115 11/07/2016 EXTHDL 55 11/07/2016 Hypertension: Positive. Currently taking: losartan (Cozaar) BP: (!) (P) 171/72 Cardiac: Negative Experiencing chest pain No . Experiencing shortness of breath No History of No history of CAD Vascular: Negative History of None Feet: Last foot exam: 05/29/18 Follows with Podiatry: Yes Apparatus Lineman: Dr. Vinicius [place] History of foot ulceration: No History of amputation: No Thyroid: Lab Results Component Value Date TSH 2.04 11/06/2017 Negative Other: Plan: 1. Rx changes: Continue current regimen Glimepiride 1-2 mg twice daily 2. Education: Reviewed ABCs of diabetes management (respective goals in parentheses): A1C (7.0-8.0), blood pressure (<130/80), and cholesterol (LDL <100). 3. Compliance at present is estimated to be excellent. Efforts to improve compliance (if necessary)will be directed at increased exercise. Also, will be directed at dietary modifications: Limit starches, carbohydrates and concentrated sugar sources 4. Follow up: 6 months 5. Record blood sugar readings as instructed. Call if BG consistently <70 or >250. [phone] Patient has been checking blood glucoses 3-4 times daily for the past 90 days. Patient needs to continue checking blood glucoses 3-4 times daily. Blood glucose readings are used to adjust medication or insulin doses for meals, monitor dietary compliance, and adjust for high or low blood glucoses by patient on a daily basis. Blood glucose readings are reviewed at office visits for adjustment in medication regimen and assistance with dietary management, and other self- management issues including exercise, etc. Prognosis: Good. Duration of need for diabetes testing equipment: Permanent #150 strips/month prescribed. 6. Bring blood sugar meter to follow up appointment. Orders Placed This Encounter Procedures Microalbumin, Urine, Random Lipid Panel Hemoglobin A1c Comprehensive Metabolic Panel CBC and Differential T4, Free TSH in this encounter Reason for Referral Specialty Diagnoses / Procedures Referred By Contac t Referred To Contact Caroline Preston APRN.CUSTOMER SOLUTIONS SUPERVISOR [address] [place] [address] Referral ID Status Reason Start Date Expiration Date V isits Requested Visits Authorized [id number] Authorized 02/18/2021 02/17/2022 1 1 Specialty Diagnoses / Procedures Referred By Contac t Referred To Contact Urology Diagnoses Recurrent UTI (urinary tract infection) Female bladder prolapse Procedures CONSULT TO UROLOGY Dereck Barnett APRN.CUSTOMER SOLUTIONS SUPERVISOR [address] [place] [address] Iris Ruiz [address] [place] [address] Referral ID Status Reason Start Date Expiration Date Visits Requested Visits Authorized [id number] Ref Not Required PCP Requested Referral 08/28/2022 08/28/2023 1 1 Additional Source Comments INFORMATION SOURCE (unrecogn ized section and content) DATE CREATED AUTHOR AUTHOR'S ORGANIZ ATION 12/02/2017 [facility] DATE CREATED AUTHOR AUTHOR'S ORGANIZ ATION 10/23/2018 [facility] DATE CREATED AUTHOR AUTHOR'S ORGANIZ ATION 01/07/2021 [facility] DATE CREATED AUTHOR AUTHOR'S ORGANIZ ATION 03/09/[address] [facility] DATE CREATED AUTHOR AUTHOR'S ORGANIZ ATION 06/11/2021 [facility] DATE CREATED AUTHOR AUTHOR'S ORGANIZ ATION 06/05/2022 [facility] DATE CREATED AUTHOR AUTHOR'S ORGANIZ ATION 12/19/2022 [facility] DATE CREATED AUTHOR AUTHOR'S ORGANIZ ATION 02/15/2023 [facility] Reason for Visit (unrecogniz ed section and content) Reason Onset Date Comments Medication Refill 08/23/2020 Reason Comments shoes measuring Reason Onset Date Comments Refill Request 05/31/2021 Reason Comments Follow-up 6mo f/u Reason Comments Nail Care Diabetic a1c 6.8- pt having ankle pain x 7 mos - pt had xrays and MRI - pt has report - pt states that the pain comes and goes and sometimes she can hardly put weight on it - pt was in a walking boot but could not wear it because it caused her lower back a lot of pain . Reason Comments Patient Question Reason Comments Results Reason Onset Date Comments Refill Request 07/11/2021 Reason Comments Urinary Urgency frequency x2 wks, lo wer paras pain Reason Comments UTI symptoms returning Orders Reason Onset Date Comments Refill Request 08/30/2021 Reason Comments Nail Care Follow-up Foot Pain RIGHT FOOT PAIN. KADIE RICHY BRACE MADE IT WORSE SO PATIENT D/CSUGAR WAS 108A1C 6.9 Reason Onset Date Comments Refill Request 11/06/2021 Reason Comments Labs done at [facility] Reason Comments 6 Month Exam Reason Comments Nail Care Diabetic nail care. Pt's a1c 7.6 three months ago. Pt states sugar level 109 this morning. Reason Comments Mammogram question Reason Comments Patient Update Patient Request Reason Comments Refill Request Reason Comments BP Check Reason Onset Date Comments Medication Refill 05/21/2022 Reason Onset Date Comments Refill Request 05/28/2022 Reason Comments Nail Care Diabetic nail care. Patient would like RX for diabetic shoes and insoles from [employer]. Reason Comments Diabetes Mellitus Ophthalmology Exam N ever done Reason Comments UTI Reason Comments UTI Reason Comments Nail Care Diabetic Nail Care Foot Problem Had questions about second toenail Reason Comments Patient Request Reason Comments Medication Refill Reason Comments Nail Care Diabetic nail care Reason Comments Acute Visit Lip swelling- starte d Saturday morning; tried contacting Dermatology but could not be seen until Mar Care Teams (unrecognized sec tion and content) Substation Design Draftsperson Relationship Specialty Start Date End Date Tahir Vega, DO [address] [facility] [address] [place] [address] [id number] PCP - General Endocrinology/Metabolism 05/14/17 Substation Design Draftsperson Relationship Specialty Start Date End Date Tahir Vega, DO [address] [facility] [address] [place] [address] [id number] PCP - General Endocrinology/Metabolism 05/14/17 Substation Design Draftsperson Relationship Specialty Start Date End Date Tahir Vega, DO [address] [place], [place] [id number] PCP - General Family Practice 04/24/17 Substation Design Draftsperson Relationship Specialty Start Date End Date Tahir Vega, DO [address] [place] [address] PCP - General Endocrinology/Metabolism 05/14/17 Substation Design Draftsperson Relationship Specialty Start Date End Date Tahir Vega, DO [address] [place] [address] PCP - General Endocrinology/Metabolism 05/14/17 Substation Design Draftsperson Relationship Specialty Start Date End Date Tahir Vega, DO [address] [place] [address] PCP - General Family Practice 04/24/17 Substation Design Draftsperson Relationship Specialty Start Date End Date Tahir Vega, DO [address] [place] [address] PCP - General Family Practice 04/24/17 Substation Design Draftsperson Relationship Specialty Start Date End Date Tahir Vega, DO [address] [place] [address] PCP - General Family Practice 04/24/17 Substation Design Draftsperson Relationship Specialty Start Date End Date Tahir Vega, DO [address] [place] [address] PCP - General Family Practice 04/24/17 Substation Design Draftsperson Relationship Specialty Start Date End Date Tahir Vega, DO [address] [place] [address] PCP - General Family Practice 04/24/17 Substation Design Draftsperson Relationship Specialty Start Date End Date Tahir Vega, DO [address] [place] [address] PCP - General Endocrinology/Metabolism 05/14/17 Substation Design Draftsperson Relationship Specialty Start Date End Date Tahir Vega, DO [address] [place] [address] PCP - General Family Medicine 04/24/17 Substation Design Draftsperson Relationship Specialty Start Date End Date Tahir Vega, DO [address] [facility] [place] [address] PCP - General Family Medicine 04/24/17 Substation Design Draftsperson Relationship Specialty Start Date End Date Tahir Vega, DO [address] [facility] [place] [address] PCP - General Family Medicine 04/24/17 Substation Design Draftsperson Relationship Specialty Start Date End Date Tahir Vega, DO [address] [facility] [address] [place] [address] PCP - General Endocrinology/Metabolism 05/14/17 Substation Design Draftsperson Relationship Specialty Start Date End Date Tahir Vega, DO [address] [facility] [place] [address] PCP - General Family Medicine 04/24/17 Substation Design Draftsperson Relationship Specialty Start Date End Date Tahir Vega, DO [address] [facility] [place] [address] PCP - General Family Medicine 04/24/17 Substation Design Draftsperson Relationship Specialty Start Date End Date Tahir Vega, DO [address] [facility] [place] [address] PCP - General Family Medicine 04/24/17 Substation Design Draftsperson Relationship Specialty Start Date End Date Tahir Vega, DO [address] [facility] [place] [address] PCP - General Family Medicine 04/24/17 Substation Design Draftsperson Relationship Specialty Start Date End Date Tahir Vega DO [address] [facility] [address] [place] [address] PCP - General Endocrinology/Metabolism 05/14/17 Substation Design Draftsperson Relationship Specialty Start Date End Date Tahir Vega DO [address] [facility] [address] [place] [address] PCP - General Endocrinology/Metabolism 05/14/17 Substation Design Draftsperson Relationship Specialty Start Date End Date Tahir Vega DO [address] [place] [address] PCP - General Endocrinology/Metabolism 05/14/17 Substation Design Draftsperson Relationship Specialty Start Date End Date Tahir Vega DO [address] [facility] [place] [address] PCP - General Family Medicine 04/24/17 Substation Design Draftsperson Relationship Specialty Start Date End Date Tahir Vega DO [address] [facility] [place] [address] PCP - General Family Medicine 04/24/17 Substation Design Draftsperson Relationship Specialty Start Date End Date Tahir Vega DO [address] [facility] [place] [address] PCP - General Family Medicine 04/24/17 Substation Design Draftsperson Relationship Specialty Start Date End Date Tahir Vega DO [address] [facility] [place] [address] PCP - General Family Medicine 04/24/17 Substation Design Draftsperson Relationship Specialty Start Date End Date Tahir Vega DO [address] [place] [address] PCP - General Endocrinology/Metabolism 05/14/17 Substation Design Draftsperson Relationship Specialty Start Date End Date Tahir Vega DO [address] [address] [place] [address] PCP - General Endocrinology/Metabolism 05/14/17 Substation Design Draftsperson Relationship Specialty Start Date End Date Tahir Vega DO Heather [address] [place] [address] PCP - General Family Medicine 04/24/17 Substation Design Draftsperson Relationship Specialty Start Date End Date Vega, Tahir Romero DO [address] [place] [address] PCP - General Family Medicine 04/24/17 Source Comments (unrecognize d section and content) In the event this informatio n is protected by the Federal Confidentiality of Alcohol and Drug Abuse Patient Records regulations: The Federal rules restrict any use of the information to criminally investigate or prosecute any alcohol or drug abuse patient.[facility] the event this information is protected by the Federal Confidentiality of Alcohol and Drug Abuse Patient Records regulations: The Federal rules restrict any use of the information to criminally investigate or prosecute any alcohol or drug abuse patient.[facility] CampusIn the event this information is protected by the Federal Confidentiality of Alcohol and Drug Abuse Patient Records regulations: The Federal rules restrict any use of the information to criminally investigate or prosecute any alcohol or drug abuse patient.[facility] CampusIn the event this information is protected by the Federal Confidentiality of Alcohol and Drug Abuse Patient Records regulations: The Federal rules restrict any use of the information to criminally investigate or prosecute any alcohol or drug abuse patient.[facility] CampusIn the event this information is protected by the Federal Confidentiality of Alcohol and Drug Abuse Patient Records regulations: The Federal rules restrict any use of the information to criminally investigate or prosecute any alcohol or drug abuse patient.[facility] CampusIn the event this information is protected by the Federal Confidentiality of Alcohol and Drug Abuse Patient Records regulations: The Federal rules restrict any use of the information to criminally investigate or prosecute any alcohol or drug abuse patient.[facility] CampusIn the event this information is protected by the Federal Confidentiality of Alcohol and Drug Abuse Patient Records regulations: The Federal rules restrict any use of the information to criminally investigate or prosecute any alcohol or drug abuse patient.[facility] CampusIn the event this information is protected by the Federal Confidentiality of Alcohol and Drug Abuse Patient Records regulations: The Federal rules restrict any use of the information to criminally investigate or prosecute any alcohol or drug abuse patient.[facility] CampusIn the event this information is protected by the Federal Confidentiality of Alcohol and Drug Abuse Patient Records regulations: The Federal rules restrict any use of the information to criminally investigate or prosecute any alcohol or drug abuse patient.[facility] CampusIn the event this information is protected by the Federal Confidentiality of Alcohol and Drug Abuse Patient Records regulations: The Federal rules restrict any use of the information to criminally investigate or prosecute any alcohol or drug abuse patient.[facility] CampusIn the event this information is protected by the Federal Confidentiality of Alcohol and Drug Abuse Patient Records regulations: The Federal rules restrict any use of the information to criminally investigate or prosecute any alcohol or drug abuse patient.[facility] CampusIn the event this information is protected by the Federal Confidentiality of Alcohol and Drug Abuse Patient Records regulations: The Federal rules restrict any use of the information to criminally investigate or prosecute any alcohol or drug abuse patient.[facility] CampusIn the event this information is protected by the Federal Confidentiality of Alcohol and Drug Abuse Patient Records regulations: The Federal rules restrict any use of the information to criminally investigate or prosecute any alcohol or drug abuse patient.[facility] CampusIn the event this information is protected by the Federal Confidentiality of Alcohol and Drug Abuse Patient Records regulations: The Federal rules restrict any use of the information to criminally investigate or prosecute any alcohol or drug abuse patient.[facility] CampusIn the event this information is protected by the Federal Confidentiality of Alcohol and Drug Abuse Patient Records regulations: The Federal rules restrict any use of the information to criminally investigate or prosecute any alcohol or drug abuse patient.[facility] CampusIn the event this information is protected by the Federal Confidentiality of Alcohol and Drug Abuse Patient Records regulations: The Federal rules restrict any use of the information to criminally investigate or prosecute any alcohol or drug abuse patient.[facility] CampusIn the event this information is protected by the Federal Confidentiality of Alcohol and Drug Abuse Patient Records regulations: The Federal rules restrict any use of the information to criminally investigate or prosecute any alcohol or drug abuse patient.[facility] CampusIn the event this information is protected by the Federal Confidentiality of Alcohol and Drug Abuse Patient Records regulations: The Federal rules restrict any use of the information to criminally investigate or prosecute any alcohol or drug abuse patient.[facility] CampusIn the event this information is protected by the Federal Confidentiality of Alcohol and Drug Abuse Patient Records regulations: The Federal rules restrict any use of the information to criminally investigate or prosecute any alcohol or drug abuse patient.[facility] CampusIn the event this information is protected by the Federal Confidentiality of Alcohol and Drug Abuse Patient Records regulations: The Federal rules restrict any use of the information to criminally investigate or prosecute any alcohol or drug abuse patient.[facility] CampusIn the event this information is protected by the Federal Confidentiality of Alcohol and Drug Abuse Patient Records regulations: The Federal rules restrict any use of the information to criminally investigate or prosecute any alcohol or drug abuse patient.[facility] CampusIn the event this information is protected by the Federal Confidentiality of Alcohol and Drug Abuse Patient Records regulations: The Federal rules restrict any use of the information to criminally investigate or prosecute any alcohol or drug abuse patient.[facility] CampusIn the event this information is protected by the Federal Confidentiality of Alcohol and Drug Abuse Patient Records regulations: The Federal rules restrict any use of the information to criminally investigate or prosecute any alcohol or drug abuse patient.[facility] CampusIn the event this information is protected by the Federal Confidentiality of Alcohol and Drug Abuse Patient Records regulations: The Federal rules restrict any use of the information to criminally investigate or prosecute any alcohol or drug abuse patient.[facility] CampusIn the event this information is protected by the Federal Confidentiality of Alcohol and Drug Abuse Patient Records regulations: The Federal rules restrict any use of the information to criminally investigate or prosecute any alcohol or drug abuse patient.[facility] CampusIn the event this information is protected by the Federal Confidentiality of Alcohol and Drug Abuse Patient Records regulations: The Federal rules restrict any use of the information to criminally investigate or prosecute any alcohol or drug abuse patient.[facility] CampusIn the event this information is protected by the Federal Confidentiality of Alcohol and Drug Abuse Patient Records regulations: The Federal rules restrict any use of the information to criminally investigate or prosecute any alcohol or drug abuse patient.[facility] CampusIn the event this information is protected by the Federal Confidentiality of Alcohol and Drug Abuse Patient Records regulations: The Federal rules restrict any use of the information to criminally investigate or prosecute any alcohol or drug abuse patient.[facility] CampusIn the event this information is protected by the Federal Confidentiality of Alcohol and Drug Abuse Patient Records regulations: The Federal rules restrict any use of the information to criminally investigate or prosecute any alcohol or drug abuse patient.[facility] CampusIn the event this information is protected by the Federal Confidentiality of Alcohol and Drug Abuse Patient Records regulations: The Federal rules restrict any use of the information to criminally investigate or prosecute any alcohol or drug abuse patient.[facility] CampusIn the event this information is protected by the [facility] Confidentiality of Alcohol and Drug Abuse Patient Records regulations: The Federal rules restrict any use of the information to criminally investigate or prosecute any alcohol or drug abuse patient.[facility] CampusIn the event this information is protected by the Federal Confidentiality of Alcohol and Drug Abuse Patient Records regulations: The Federal rules restrict any use of the information to criminally investigate or prosecute any alcohol or drug abuse patient.[facility] FOR RECORDS PERTAINING TO PATIENTS WHO ARE OR HAVE BEEN ENROLLED IN A CHEMICAL DEPENDENCY/SUBSTANCEABUSE PROGRAM, SOME INFORMATION MAY BE OMITTED. This clinical summary was aggregated from multiple sources. Caution should be exercised in using it in the provision of clinical care. This summary normalizes information from multiple sources, and as a consequence, information in this document may materially change the coding, format and clinical context of patient data. In addition, data may be omitted in some cases. CLINICAL DECISIONS SHOULD BE BASED ON THE PRIMARY CLINICAL RECORDS. [facility]. provides no warranty or guarantee of the accuracy or completeness of information in this document.
== END 2023-02-27 10:57 | disposition home or self-care (01) ==
PROVIDERS: Emergency Provider Emergency Medicine; PCP Student in an Organized Health Care Education/Training Program; Visit Provider Emergency Medicine
DX: U07.1 COVID-19 (principal)
CPT/HCPCS: 71045; 81001; 87086; 87088; 87186; 87631; 99282

== ENCOUNTER 2024-02-11 12:48 | Emergency (ER) | payer MEDICARE, SELFPAY ==
[2024-02-11 12:53] VITALS: BP 197/76; PULSE 62; RESP 18; TEMP 36.5; O2SAT 100
[2024-02-11 13:27] LABS: Bedside Glucose 187 mg/dL (74-106)
[2024-02-11 13:32] VITALS: BP 182/68; PULSE 64; RESP 16; O2SAT 100
--- NOTE | 2024-02-11 13:40 | EKG12_ITS ---
Test Reason : WEAKNESS Blood Pressure : */* mmHG Vent. Rate : 60 BPM Atrial Rate : 60 BPM P-R Int : 222 ms QRS Dur : 142 ms QT Int : 500 ms P-R-T Axes : 41 -3 109 degrees QTcB Int : 500 ms Sinus rhythm with 1st degree A-V block Left bundle branch block Abnormal ECG Confirmed by EPHRAIM DELCID, MINDA ([id number]), metropolitan editor JUNIE COPELAND ([id number]) on 02/13/2024 2:15:51 PM Referred By: Rony Teran Confirmed By: MINDA YE MD
[2024-02-11] MEDS: Ondansetron 4 MG/2 ML Vial IV (13:45)
[2024-02-11] MEDS: 0.9% Normal Saline (1000mL) 1,000 ML 999 ML IV (13:45)
--- NOTE | 2024-02-11 13:45 | RAD_ITS ---
EXAM: XR CHEST, 1 VIEW CLINICAL INDICATION: vomiting TECHNIQUE: Frontal view of the chest. COMPARISON: 02/27/2023. FINDINGS: LUNGS AND PLEURAL SPACES: Unremarkable. No consolidation or edema. No pneumothorax. No effusion. HEART: Unremarkable. Cardiac silhouette not enlarged. MEDIASTINUM: Central airways and mediastinal contour are unremarkable. BONES/JOINTS: Unremarkable. No acute fracture. SOFT TISSUES: Unremarkable. RAD/Chest 1 View (Portable) IMPRESSION: No radiographic evidence of acute cardiopulmonary disease and unchanged. Electronically Signed: Arpit Stephens MD at 14:04 EST ,
[2024-02-11 13:47] VITALS: BMI 25.2
[2024-02-11 13:57] LABS: Absolute Lymphocyte Count 1.08 X10^3/uL (0.83-4.51); Absolute Neutrophil Count 11.6 X10^3/uL (2.0-7.7); Basophil# 0.07 X10^3/uL; Basophil% 0.5 % (0-1); Eosinophil# 0.03 X10^3/uL; Eosinophils% 0.2 % (0-5); Lymphocyte # 1.08 X10^3/ul (0.83-4.51); Lymphocyte % 8.1 % (19-41); Mean Corpuscular Hgb 31.6 pg (27.0-32.0); Mean Corpuscular Volume 90.3 fL (81-99); Mean Platelet Vol. 10.8 fl (6.2-12.0); Monocyte# 0.55 X10^3/uL; Monocyte% 4.1 % (0-10); NRBC Flagged by Analyzer 0 % (0-5); Neutrophil # 11.58 X10^3/uL (2.7-7.7); Neutrophil % 86.6 % (47-70); Platelet Count 288 K/mm3 (150-450); RBC Distribution Width CV 12.1 % (11.6-14.6); RBC Distribution Width SD 40.5 fl (35.1-43.9); Red Blood Count 4.43 M/mm3 (4.2-5.4); White Blood Count 13.4 K/mm3 (4.4-11.0)
--- NOTE | 2024-02-11 14:05 | EDS_ITS ---
HPI History of Present Illness Chief Complaint: Hypertension Informant: patient Narrative Narrative: 83-year-old female presents after having a near syncopal episode while on the toilet today, she had diarrhea. She vomited once today as well just after this, but she was diaphoretic and near syncopal while sitting on the toilet having the diarrhea. She been having diarrhea for several days at least, she is not sure exactly when it started, its less than 5 times per day no blood, and she is on day #5 of 5 days of Levaquin for urinary infection. She states that is seemingly better, her symptoms were headache, urinary frequency, maybe some cloudy urine, low back discomfort, and not feeling well. She states she had another different similar near syncopal episode 3 weeks ago while she was in [place], right before she had to have a bowel movement, one of the paramedics checked her after this and she had some relative bradycardia and hypertension, so she went to a local emergency department not this 1, states she had a negative workup felt better and went home. In the last several days she states she has been drinking fluids. She has been making good urine. She denies any chest pain, shortness of breath associated with any of this, she is on no a nticoagulants. Feeling weak all over, worse today after this episode. Checked her blood pressure prior to coming in 3 times, it was around 200 systolic. No longer feeling lightheaded right now. At the time of my evaluation her heart rate is in the 60 range and systolic blood pressure in the 180s. [facility] Medical History HTN (hypertension) Home Medications ?Medication ?Instructions ?Recorded ?Last Taken ?Type clonidine HCl 0.1 mg tablet 0.1 mg PO BID PRN SBP > 175 #10 02/11/24 Unknown Rx tabs Allergy/AdvReac Type Severity Reaction Status Date / Time amoxicillin AdvReac YEAST Verified 02/11/24 12:53 INFECTION Social History Smoking Status: Never smoker ROS ROS ED Constitutional Constitutional ED: Reports weakness; Denies chills or fever(s) Eyes Eyes: Denies change in vision or diplopia ENT ENT ED: Denies rhinorrhea or sore throat Cardiovascular Cardiovascular: Reports as per HPI and lightheadedness; Denies chest pain, palpitations, radiating jaw, neck or arm pain or syncope Respiratory/Chest Respiratory/Chest: Denies cough or dyspnea Gastrointestinal Gastrointestinal: Reports diarrhea, nausea and vomiting; Denies abdominal pain, hematochezia or melena Genitourinary Genitourinary ED: Denies dysuria or hematuria Musculoskeletal Musculoskeletal: Denies back pain or neck pain Integumentary Denies abscess or rash Neurologic Neurologic: Denies headache(s), paresthesias or weakness Psychiatric Psychiatric: Denies anxiety or suicidal thoughts EXAM Physical Exam Const Vital Signs: 02/11/24 12:53 02/11/24 13:32 02/11/24 13:32 Temperature 97.7 F L Temperature Source Oral Pulse Rate 62 64 Pulse Rate [Lying] Pulse Rate [Sitting (for 1 minute prior to obtaining)] Pulse Rate [Standing (for 1 minute prior to obtaining)] Respiratory Rate 18 16 Respiratory Effort Normal Non-Labored Respiratory Pattern Normal Blood Pressure 197/76 H 182/68 H Blood Pressure [Lying] Blood Pressure [Sitting (for 1 minute prior to obtaining)] Blood Pressure [Standing (for 1 minute prior to obtaining)] Blood Pressure Mean 116 106 Blood Pressure Mean [Lying] Blood Pressure Mean [Sitting (for 1 minute prior to obtaining)] Blood Pressure Mean [Standing (for 1 minute prior to obtaining)] Pulse Ox 100 100 Oxygen Delivery Method Room Air Room Air 02/11/24 14:12 02/11/24 14:41 02/11/24 14:55 Temperature 97.8 F Temperature Source Pulse Rate 61 Pulse Rate [Lying] 59 L Pulse Rate [Sitting (for 1 minute prior to obtaining)] 63 Pulse Rate [Standing (for 1 minute prior to obtaining)] 62 Respiratory Rate 18 Respiratory Effort Respiratory Pattern Blood Pressure 185/66 H 192/62 H Blood Pressure [Lying] 188/62 H Blood Pressure [Sitting (for 1 minute prior to obtaining)] 191/67 H Blood Pressure [Standing (for 1 minute prior to obtaining)] 197/59 H Blood Pressure Mean 105 105 Blood Pressure Mean [Lying] 104 Blood Pressure Mean [Sitting (for 1 minute prior to obtaining)] 108 Blood Pressure Mean [Standing (for 1 minute prior to obtaining)] 105 Pulse Ox 96 Oxygen Delivery Method Positive well nourished and well developed General Appearance ED: well developed and NAD HEENT Reports moist mucous membranes normocephalic and atraumatic Eyes PERRL and EOMs intact bilaterally Neck full ROM and supple Resp normal respiratory effort and clear to auscultation bilaterally Cardio regular rate and regular rhythm Rhythm: other Other Details: For the most part regular, occasionally irregular coinciding with PVCs on the monitor patient asymptomatic Heart Sounds: murmur systolic II/ Peripheral Pulses: pulses 2+ throughout GI non-tender and non-distended Auscultation: normoactive bowel sounds Palpation: soft Back/Spine no CVA tenderness General Back: other FROM Extremity normal to inspection General Extremety ED: Negative for edema, pulses abnormal or tenderness General Extremity: Negative for edema or pulses abnormal Neuro oriented x3, CN's II-XII intact bilaterally and no sensory deficits noted Sensorium / Orientation: awake and alert Motor Exam: strength 5/5 throughout Skin no rashes or lesions noted and no wounds MDM MDM MDM Narrative Medical decision making narrative: Given the timing and mechanism I suspect patient had a vasovagal episode, however given her age and health issues, cardiopulmonary etiologies such as pneumonia, acute coronary syndrome are in a differential, AV block. Dehydration. Electrolyte/metabolic disturbance. Chest x-ray 1 view on my interpretation shows no pneumonia, her EKG shows a first-degree AV block, she was having some PVCs on the monitor, she is asymptomatic with those unclear what she was doing when she had the episode, but she was on the toilet having a bowel movement at the time, vasovagal mechanism is reasonable to assume that the rest of her workup is unremarkable. On the labs she has a mild leukocytosis which is nonspecific, she has no major metabolic disturbance except for some mild prerenal azotemia. She was given a liter of fluid and some Zofran. We watched her blood pressure. He went down to the 170s, but then went back up to 192/62 so I gave her a dose of clonidine and we did some orthostatic prior to getting that. They are negative and she is feeling better. I ordered a C. difficile but she did not have diarrhea for us to send. Given that she is having less than 5 bouts per day I think the odds of that are lower. There is nothing in the ancillary testing that requires admission at this time, but given that the patient is not feeling well I offered it. She declines and prefers to go home. She has no sign of acute myocardial, renal, or brain injury from her blood pressure, and as far as I am concerned, is asymptomatic from these elevated numbers. She declines an offer for Zofran but I am going to give her a prescription for clonidine to use as needed until she can follow-up with her doctor since it is a holiday. She is comfortable with that plan. Lab Data Attestation: I reviewed the patient's lab results. Labs: Laboratory Results - last 24 hr 02/11/24 02/11/24 13:04 13:10 WBC 13.4 H RBC 4.43 Hgb 14.0 Hct 40.0 MCV 90.3 MCH 31.6 MCHC 35.0 RDW Std Deviation 40.5 RDW Coeff of Nitesh 12.1 Plt Count 288 MPV 10.8 Immature Gran % (Auto) 0.500 Neut % (Auto) 86.6 H Lymph % (Auto) 8.1 L Hayes % (Auto) 4.1 Eos % (Auto) 0.2 Baso % (Auto) 0.5 Absolute Neuts (auto) 11.6 H Absolute Lymphs (auto) 1.08 Nucleated RBC % 0 Sodium 132 L Potassium 4.3 Chloride 98 Carbon Dioxide 27.0 Anion Gap 7 BUN 22 H Creatinine 0.85 Estim Creat Clear Calc 44.83 Est GFR (MDRD) Af Amer 82 Est GFR (MDRD) Non-Af 68 BUN/Creatinine Ratio 25.9 H Glucose 197 H Calcium 9.0 Total Bilirubin 0.70 AST 15 ALT 18 Alkaline Phosphatase 77 Troponin I High Sens 9 Total Protein 7.6 Albumin 3.6 Globulin 4.0 Albumin/Globulin Ratio 0.9 POC Glucose 187 H Radiography Diagnostic Testing: Clinical Impression(s) from Imaging Studies Chest X-Ray 02/11/24 13:45 IMPRESSION: No radiographic evidence of acute cardiopulmonary disease and unchanged. Electronically Signed: Arpit Stephens MD at 14:04 EST , Rhythm Strip Rhythm Strip: Sinus Rhythm Rate: 60 Ectopy: PVC(s) EKG Initial EKG: Attestation: I personally reviewed and interpreted this EKG as follows: Interpretation: Sinus Rhythm, No Acute Injury Pattern, LBBB and AV Block (1st deg AVB) Prior EKG tracings: not available for review Prior: No Prior Discharge Plan Triage Chief Complaint: Hypertension Other Complaint: General Illness ED Provider: Rony Teran Dx/Rx/DC Orders Clinical Impression: Vasovagal near syncope, Acute diarrhea, Mild dehydration, Frequent PVCs, Accelerated hypertension Instructions: Hypertension Dc, ED Diarrhea, Unknown Cause Prescriptions: New clonidine HCl 0.1 mg tablet 0.1 mg PO BID PRN (Reason: SBP > 175) Qty: 10 0RF Primary Care Provider: Tahir Lau Referrals: Tahir Lau, [Primary Care Provider] - As soon as possible Activity Restrictions/Additional Instructions: Continue taking your blood pressure medication as prescribed. The new prescription is for an as-needed addition if you should need it for high blood pressure readings before you can follow-up with your doctor. Eat yogurt daily or take a probiotic until your diarrhea is resolved. Discontinue the Levaquin that you have a pill of left. Print Language: Greenlandic Disposition Disposition: Home, Self Care
[2024-02-11 14:06] LABS: ALB/GLOB Ratio 0.9 RATIO (0.9-2.4); AST(SGOT) 15 U/L (15-37); Alanine Aminotransfer ALT/SGPT 18 U/L (13-56); Albumin, Serum 3.6 g/dL (3.2-5.0); Alkaline Phosphatase 77 U/L (45-117); Anion Gap 7 (5-15); BUN 22 mg/dL (7-18); BUN/Creat Ratio 25.9 RATIO (10-20); Chloride 98 mmol/L (98-107); Creatinine, Serum 0.85 mg/dL (0.55-1.02); EST Glomerular Filtration Rate 68 mL/min (>60); Est Glom Filt Rate - Afr Amer 82 mL/min (>60); Estimated Creatinine Clearance 44.83 ml/min; Glucose 197 mg/dL (74-106); Potassium 4.3 mmol/L (3.5-5.1); Protein, Total 7.6 g/dL (6.4-8.2); Sodium Level 132 mmol/L (136-145); Troponin-I HS 9 pg/mL (3.0-54.0)
[2024-02-11 14:12] VITALS: BP 185/66
[2024-02-11 14:41] VITALS: BP 192/62; PULSE 61; RESP 18; TEMP 36.6; O2SAT 96
[2024-02-11] MEDS: cloNIDine HCl 0.1 MG Tablet PO (14:49)
[2024-02-11 14:55] VITALS: BP 188/62; BP 191/67; BP 197/59; PULSE 59; PULSE 62; PULSE 63
[2024-02-11 15:47] VITALS: BP 146/53; PULSE 60
== END 2024-02-11 15:48 | disposition home or self-care (01) ==
PROVIDERS: Emergency Provider Emergency Medicine; PCP Student in an Organized Health Care Education/Training Program; Referring Provider Emergency Medicine; Visit Provider Emergency Medicine
DX: I10 Essential (primary) hypertension (principal); R55 Syncope and collapse; I49.3 Ventricular premature depolarization; E86.0 Dehydration; Z79.899 Other long term (current) drug therapy; R19.7 Diarrhea, unspecified
CPT/HCPCS: 71045; 80053; 82962; 84484; 85025; 93005; 96361; 96374; 99284; A4216; J2405

== ENCOUNTER 2024-03-16 10:21 | Emergency (ER) | payer MEDICARE, SELFPAY ==
[2024-03-16 10:22] VITALS: BP 176/81; PULSE 74; RESP 16; TEMP 36.2; O2SAT 98
--- NOTE | 2024-03-16 10:43 | VDLE_ITS ---
Reason For Study: Right leg pain RIGHT LEFT GSV is normal. CFV is compressible, spontaneous, phasic, CFV is compressible, spontaneous, phasic, competent, and demonstrates normal competent and demonstrates normal augmentation. augmentation. FV is compressible, spontaneous, phasic, competent and demonstrates normal augmentation. POP V is compressible, spontaneous, phasic, competent and demonstrates normal augmentation. T/P Trunk is compressible. PTV is compressible. RT PerV is compressible. Procedure This is a venous duplex using B-mode, color flow and spectral Doppler. Exam performed portable in ED. A preliminary report was called and/or faxed to ED. VL/Venous Duplex US, Unilateral Interpretation Summary Deep veins of the right lower extremity are patent and compressible segmentally . There is no evidence of right lower extremity deep vein thrombosis. Valvular competence monse ears intact within the proximal deep venous system on the right . The right great saphenous vein a ppears patent and compressible segmentally. The left common femoral vein is patent and compressib le . Ordering Physician: Rony Teran Referring Physician: Tahir Lau Performed By: Desirae Briseno RVT
--- NOTE | 2024-03-16 10:44 | EDS_ITS ---
HPI History of Present Illness Chief Complaint: Lower Extremity Injury Informant: patient and spouse/S.O. Narrative Narrative: 83-year-old female states has been having charley horse-like cramping in her right calf since last night to the point where she could not sleep. Radiates up into her thigh. Denies any injury. She usually walks but was having trouble since this started. She denies any numbness or weakness. She denies any chest pain or shortness of breath. She already takes Eliquis but despite this, when she called her primary care office today the nurse told her to come to the ER to be evaluated for DVT or PE. She has had no surgeries or hospitalizations in the past month or 2. 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 [facility] Medical History HTN (hypertension) Home Medications ?Medication ?Instructions ?Recorded ?Last Taken ?Type clonidine HCl 0.1 mg tablet 0.1 mg PO BID PRN SBP > 175 #10 02/11/24 Unknown Rx tabs Allergy/AdvReac Type Severity Reaction Status Date / Time levofloxacin Allergy Unknown PT UNSURE Verified 03/16/24 10:24 OF REACTION amoxicillin AdvReac YEAST Verified 03/16/24 10:21 INFECTION Social History Smoking Status: Never smoker ROS ROS ED Constitutional Constitutional ED: Denies chills or fever(s) Musculoskeletal Musculoskeletal: Reports extremity pain; Denies neck pain Integumentary Denies Abrasions, rash or wounds Neurologic Neurologic: Denies paresthesias or weakness EXAM Physical Exam Const Vital Signs: 03/16/24 10:22 Temperature 97.2 F L Temperature Source Temporal Pulse Rate 74 Respiratory Rate 16 Blood Pressure 176/81 H Blood Pressure Mean 112 Pulse Ox 98 Oxygen Delivery Method Room Air Positive well nourished and well developed General Appearance ED: well developed and NAD Neck full ROM and supple Back/Spine normal ROM and normal to inspection Extremity normal to inspection and full ROM Extremity Narrative: Normal inspection both lower extremities. Subjective tenderness throughout the right calf. There is no palpable cords. There is no tender varicosities although there are some near the ankle. There is no edema. Intact pulses both feet. Full range of motion all joints of both lower extremities without discomfort. Neuro oriented x3, no focal motor deficits and no sensory deficits noted Sensorium / Orientation: alert Psych mental status grossly normal and thought process normal Skin no wounds Rashes: no rashes MDM MDM MDM Narrative Medical decision making narrative: Patient wanted a ultrasound of her leg to rule out DVT according to her doctor's office's request. As I advised her she is on Eliquis and the chances of this are extremely low. We obtained and reviewed a ultrasound of the right lower extremity on my interpretation is normal radiology is in agreement no DVT or SVT. I did a metabolic panel which is unremarkable her mild hyponatremia would not be causing this, her potassium and calcium are within normal limits. Patient is stable for discharge, we talked about muscle stretching, heating pad, massage and other methods of supportive care. She wants to take meloxicam but I advised against that since she is on an anticoagulant. Also advised against ibuprofen I offered her a prescription for Vicodin but she declines. Advised to follow-up with her doctor. Lab Data Attestation: I reviewed the patient's lab results. Labs: Laboratory Results - last 24 hr 03/16/24 11:05 Sodium 131 L Potassium 4.3 Chloride 99 Carbon Dioxide 25.0 Anion Gap 7 BUN 13 Creatinine 0.68 Est GFR (MDRD) Af Amer 106 Est GFR (MDRD) Non-Af 87 BUN/Creatinine Ratio 19.1 Glucose 215 H Calcium 9.0 Discharge Plan Triage Chief Complaint: Lower Extremity Injury ED Provider: Rony Teran Dx/Rx/DC Orders Clinical Impression: Pain of muscle of lower leg Instructions: ED Muscle Spasm Prescriptions: No Action clonidine HCl 0.1 mg tablet 0.1 mg PO BID PRN (Reason: SBP > 175) Qty: 10 0RF Primary Care Provider: Tahir Lau Referrals: Tahir Lau, [Primary Care Provider] - 3-5 Days if not improving Print Language: Telugu Disposition Disposition: Home, Self Care
[2024-03-16 11:22] LABS: Anion Gap 7 (5-15); BUN 13 mg/dL (7-18); BUN/Creat Ratio 19.1 RATIO (10-20); Chloride 99 mmol/L (98-107); Creatinine, Serum 0.68 mg/dL (0.55-1.02); EST Glomerular Filtration Rate 87 mL/min (>60); Est Glom Filt Rate - Afr Amer 106 mL/min (>60); Glucose 215 mg/dL (74-106); Potassium 4.3 mmol/L (3.5-5.1); Sodium Level 131 mmol/L (136-145)
== END 2024-03-16 13:29 | disposition home or self-care (01) ==
PROVIDERS: Emergency Provider Emergency Medicine; PCP Student in an Organized Health Care Education/Training Program; Visit Provider Emergency Medicine
DX: M79.661 Pain in right lower leg (principal); M62.831 Muscle spasm of calf; I10 Essential (primary) hypertension; I49.9 Cardiac arrhythmia, unspecified; Z79.01 Long term (current) use of anticoagulants
CPT/HCPCS: 36415; 80048; 93971; 99282

== ENCOUNTER → 2024-04-02 | Outpatient (CLI) | payer MEDICARE, SELFPAY ==
[2024-04-02 10:36] LABS: Erythrocyte Sedimentation Rate 14 mm/hr (0-30)
[2024-04-02 10:38] LABS: Absolute Lymphocyte Count 1.73 X10^3/uL (0.83-4.51); Absolute Neutrophil Count 7.8 X10^3/uL (2.0-7.7); Basophil# 0.09 X10^3/uL; Basophil% 0.8 % (0-1); Eosinophil# 0.28 X10^3/uL; Eosinophils% 2.6 % (0-5); Hematocrit 40.2 % (37-47); Hemoglobin 13.8 g/dL (12.0-15.0); Lymphocyte # 1.73 X10^3/ul (0.83-4.51); Lymphocyte % 16.3 % (19-41); Mean Corp Hgb Conc 34.3 g/dL (32-36); Mean Corpuscular Hgb 30.9 pg (27.0-32.0); Mean Corpuscular Volume 89.9 fL (81-99); Mean Platelet Vol. 8.4 fl (6.2-12.0); Monocyte# 0.71 X10^3/uL; Monocyte% 6.7 % (0-10); NRBC Flagged by Analyzer 0 % (0-5); Neutrophil # 7.79 X10^3/uL (2.7-7.7); Neutrophil % 73.3 % (47-70); Platelet Count 382 K/mm3 (150-450); RBC Distribution Width CV 12.2 % (11.6-14.6); RBC Distribution Width SD 39.8 fl (35.1-43.9); Red Blood Count 4.47 M/mm3 (4.2-5.4); White Blood Count 10.6 K/mm3 (4.4-11.0)
[2024-04-02 11:43] LABS: CRP < 2.90 mg/L (0.0-3.0)
== END | disposition home or self-care (01) ==
LOC: LAB 09:54
PROVIDERS: PCP Student in an Organized Health Care Education/Training Program; Referring Provider Physician Assistant; Visit Provider Physician Assistant
DX: Z01.818 Encounter for other preprocedural examination (principal)
CPT/HCPCS: 36415; 85025; 85652; 86140